=== PATIENT | male | born 1965 | race Caucasian/White ===

== ENCOUNTER → 2016-05-28 | Day surgery (SDC) | payer MEDICARE ==
[~2016-05-28] VITALS: Ht 182.9 cm; Wt 63.5 kg
[~2016-05-28] MED LIST: ACETAMINOPHEN/HYDROcodone 325 MG/5 MG TAB ONE; ACETAMINOPHEN/HYDROcodone 325 MG/5 MG TAB PO PRN; ALPR.25 PO; AMBI5TAB PO; Aspirin Chew PO; BACL10TA PO; BACT800T5 PO; BUPIVACAINE HCL PF 0.5% 30 ML VIAL ONE; CARV3.125 PO; CIPROFLOXACIN 500 MG TAB PO ONE; COLA100C3 PO; DOCU1CAP39 PO; DOXY100T PO; FAMOTIDINE 20 MG/2 ML VIAL ONE; HYDR-3583 PO; INSULIN HUMAN REGULAR 1,000 UNITS/10 ML VIAL SQ PRN; LACTATED RINGER'S 1000 ML IV SCH; LIDOCAINE 0.5%/EPINEPHrine 1:200,000 SOLN 50 ML VIAL ONE; LIDOCAINE 1%/EPINEPHrine 1:100,000 SOLN 20 ML VIAL ONE; LOVA40TA PO; METH1TAB2 PO; METOPROLOL TARTRATE 25 MG TAB PO PRN; MIDAZOLAM HCL 2 MG/2 ML VIAL ONE; POLY17S PO; PRAV40TA PO; PROPOFOL 200 MG/20 ML AMP IV ONE; SODIUM CHLORID 0.9% 500 ML IV SCH; VITA100018 PO; VITA10003 PO
[2016-05-28 13:20] VITALS: BP 123/78; PULSE 85; RESP 18; TEMP 98.6; O2SAT 98
[2016-05-28 13:33] LABS: AUTOMATED NEUTROPHIL # 6.6 TH/MM3 (1.8-7.7); BASOPHIL # 0.1 TH/MM3 (0-0.2); BASOPHIL % 0.6 % (0.0-2.0); EOSINOPHIL # 0.1 TH/MM3 (0-0.4); HEMATOCRIT 41.6 % (39.0-51.0); HEMO FLAGS DIFF FINAL; LYMPH % 15.2 % (9.0-44.0); LYMPHOCYTE # 1.3 TH/MM3 (1.0-4.8); MEAN CELL VOLUME 84.8 FL (80.0-100.0); MEAN CORPUSCULAR HEMOGLOBIN 28.9 PG (27.0-34.0); MEAN CORPUSCULAR HGB CONC 34.1 % (32.0-36.0); MONO % 5.3 % (0.0-8.0); NEUT % 77.9 % (16.0-70.0); PLATELET COUNT 369 TH/MM3 (150-450); RED BLOOD COUNT 4.91 MIL/MM3 (4.50-5.90); RED CELL DISTRIBUTION WIDTH 12.6 % (11.6-17.2); WHITE BLOOD COUNT 8.5 TH/MM3 (4.0-11.0)
--- NOTE | 2016-05-28 14:15 | EKG ---
Date Performed: 05/28/2016 Time Performed: 13:19:21 PTAGE: 51 years EKG: Sinus rhythm LEFT ATRIAL ENLARGEMENT PATTERN CONSISTENT WITH PULMONARY DISEASE INCOMPLETE RIGHT BUNDLE BRANCH BLO CK RIGHT VENTRICULAR HYPERTROPHY ABNORMAL ECG PREVIOUS TRACING : 07/12/2008 13.17 No significant change DOCTOR: Ramirez Hatfield Interpretating Date/Time 05/28/2016 14:13:23
[2016-05-28 17:00] VITALS: BP 124/81; PULSE 90; RESP 16; TEMP 97.9; O2SAT 96
--- NOTE | 2016-05-28 19:12 | MP ---
cc: DAIJA BOWEN M.D., JOHN T. M.D. DATE OF SURGERY: 05/28/2016 PREOPERATIVE DIAGNOSIS Internal and external hemorrhoids. POSTOPERATIVE DIAGNOSIS Internal and external hemorrhoids. PROCEDURE Internal and external hemorrhoidectomy. ANESTHESIA Monitored anesthesia care and local, 50 cc of 0.5% Xylocaine with epinephrine. SURGEON Dr. Crockett. OPERATIVE FINDINGS This patient underwent a hemorrhoidectomy by me approximately eight years ago. The patient is quadriplegic but gets a lot of spastic pain when his hemorrhoids are enlarged, they are bothering him again. Last time he was plagued with a lot of discomfort and bleeding, this time he is mainly plagued with what he describes as pain although he is quadriplegic. At surgery he was found to have large thickened primarily external hemorrhoids; however, the right posterior internal complex was quite large as well. A complete hemorrhoidectomy was done excising all the external and internal hemorrhoids. OPERATIVE TECHNIQUE The patient was placed on the table in the prone position after adequate monitored anesthesia care and the anal canal was injected 0.5% Xylocaine with epinephrine in the submucosal plane mainly externally and then in the submucosal hemorrhoidal plexus. The large Fansler operating anoscope was placed in the anal canal. My attention was first turned to the right posterior internal and external hemorrhoidal complex. An elliptical incision was made and then the hemorrhoid was excised from the muscles protecting the external and internal sphincter at all times. Next, the wound was closed from the apex outward using a running 2-0 chromic suture in a simple running manner. Hemostasis was maintained throughout with suture ligature. Next, my attention was turned to the large external posterior hemorrhoid which was excised elliptically and then closed transversely with a running 2-0 chromic suture in a simple running manner. I then replaced the Fansler retractor and the left posterior internal and external hemorrhoid was then elliptically incised and excised from the anal muscles, closing the wound from the apex outward using a running 2-0 chromic suture in a simple running manner. Once this was done, my attention was turned to left anterior external hemorrhoid which was fully excised, there was really no significant internal component to this. This wound was closed transversely with a single running 2-0 chromic suture in a simple running manner. Once this was done, the hemostasis was excellent. The sponge, needle and instrument counts were reported as correct. The estimated blood loss was 25 cc. The patient tolerated the procedure well and left the operating room in good condition. MD ORIN Morrissey/ANNE-MARIE /4:04 PM /6:41 PM
== END | disposition home or self-care (01) ==
LOC: HSDC 12:31
PROVIDERS: ATTEND Colon & Rectal Surgery
DX: K64.2 Third degree hemorrhoids (principal); K64.4 Residual hemorrhoidal skin tags; E78.5 Hyperlipidemia, unspecified; R94.31 Abnormal electrocardiogram [ECG] [EKG]
CPT/HCPCS: 00902; 46260; 85025; 88304; 93005; J2250; J3010; J7120

== ENCOUNTER 2016-06-02 16:05 | Inpatient (IN) | payer MEDICARE ==
[~2016-06-02 16:05] MED LIST changes: -ACETAMINOPHEN/HYDROcodone 325 MG/5 MG TAB ONE; -ACETAMINOPHEN/HYDROcodone 325 MG/5 MG TAB PO PRN; -ALPR.25 PO; -AMBI5TAB PO; -Aspirin Chew PO; -BACL10TA PO; -BACT800T5 PO; -BUPIVACAINE HCL PF 0.5% 30 ML VIAL ONE; -CARV3.125 PO; -CIPROFLOXACIN 500 MG TAB PO ONE; -DOCU1CAP39 PO; -DOXY100T PO; -FAMOTIDINE 20 MG/2 ML VIAL ONE; -INSULIN HUMAN REGULAR 1,000 UNITS/10 ML VIAL SQ PRN; -LACTATED RINGER'S 1000 ML IV SCH; -LIDOCAINE 0.5%/EPINEPHrine 1:200,000 SOLN 50 ML VIAL ONE; -LIDOCAINE 1%/EPINEPHrine 1:100,000 SOLN 20 ML VIAL ONE; -METOPROLOL TARTRATE 25 MG TAB PO PRN; -MIDAZOLAM HCL 2 MG/2 ML VIAL ONE; -POLY17S PO; -PRAV40TA PO; -PROPOFOL 200 MG/20 ML AMP IV ONE; -SODIUM CHLORID 0.9% 500 ML IV SCH; -VITA100018 PO
--- NOTE | 2016-06-02 17:19 | PD ---
HPI Chief Complaint: Headache Time Seen by Provider: 17:19 Travel History International Travel<30 days: No Contact w/Intl Traveler<30days: No History of Present Illness HPI 51-year-old male with a history of C-spine injury and quadriplegia is brought to the emergency department by EMS for evaluation of headache. The patient states that he had a hemorrhoidectomy performed by Dr. Crockett 5 days ago. States that he has had severe pain in his rectum since this surgery, states the pain radiates up his back. States he has not had a bowel movement until today when he used a suppository which allowed him to pass a small amount of stool. The patient states that he had a sudden onset terrible headache about an hour and a half ago that he describes as being sharp and behind the eyes bilaterally. States that the headache has improved since then but he is still having a mild headache. States that he has also been diaphoretic and had some chest congestion since the surgery. The patient is quadriplegic and has reduced sensation from the arms down. He denies any fever, chest pain, shortness of breath, difficulty breathing, abdominal pain, nausea, vomiting, lightheadedness, dizziness. No other complaints. PFSH Past Medical History Cancer: No Cardiovascular Problems: No Diabetes: No Endocrine: No Glaucoma: No Genitourinary: Yes (ONGOING RESENDEZ) Hepatitis: No Hiatal Hernia: No Hypertension: No Immune Disorder: No Musculoskeletal: Yes (SCOLIOSIS, RIGHT ROTATOR CUFF TEAR) Neurologic: Yes (QUADRIPLEGIC, PINCHED NERVE IN NECK) Psychiatric: Yes (ANXIETY AND DEPRESSION) Reproductive: Yes Respiratory: No Thyroid Disease: No Past Surgical History Abdominal Surgery: Yes ( LT INGUINAL HERNIA REPAIR) AICD: No Body Medical Devices: CERVICAL HARDWARE Cardiac Surgery: No Ear Surgery: No Endocrine Surgery: No Eye Surgery: No Genitourinary Surgery: No Gynecologic Surgery: No Joint Replacement: No Oral Surgery: Yes (T&A CHILDHOOD) Pacemaker: No Thoracic Surgery: Yes (BILATERAL CHEST TUBES FOR PNEUMOTHORAX) Social History Alcohol Use: Yes (SOCIALLY) Tobacco Use: No Substance Use: Yes (MARIJUANA) Allergies-Medications (Allergen,Severity, Reaction): Coded Allergies: Penicillin (Verified Allergy, Severe, RASH, 06/02/16) Reported Meds & Prescriptions Reported Meds & Active Scripts Active Reported Colace (Docusate Sodium) 100 Mg Cap 100 Mg PO TID Vitamin D-3 (Cholecalciferol) 1,000 Unit Tab 1,000 Units PO DAILY Hydrocodone-Acetaminophen 10-325 mg Tab 1 Tab PO Q6H PRN Methenamine Hippurate 1 Gm Tab 1 Gm PO BID Lovastatin 40 Mg Tab 40 Mg PO DAILY Review of Systems Except as stated in HPI: all other systems reviewed are Neg Physical Exam Narrative GENERAL: Well-nourished and well-developed male patient in moderate pain. SKIN: Diaphoretic, warm. HEAD: Normocephalic and atraumatic. EYES: No injection, drainage, or hyphema noted. PERRLA. EOMI. ENT: No nasal drainage noted. Oropharynx is clear. NECK: Supple and the trachea is midline. CARDIOVASCULAR: Regular rate and rhythm. RESPIRATORY: Breath sounds are equal bilaterally with no accessory muscle use, wheezing, rhonchi, or crackles. GASTROINTESTINAL: Abdomen is soft, non-tender, and nondistended. RECTAL EXAM: Mild irritation of the external rectum. No masses or tenderness, stool is brown. MUSCULOSKELETAL: No obvious deformities, swelling, cyanosis, or ecchymosis is present throughout the upper and lower extremities. NEUROLOGICAL: Awake, alert, and oriented. Normal speech and gait. Cranial nerves are grossly intact. Data Data Last Documented VS Vital Signs Date Time Temp Pulse Resp B/P Pulse Ox O2 Delivery O2 Flow Rate FiO2 06/02/16 19:53 99.1 83 20 137/92 99 Room Air Orders Electrocardiogram (06/02/16 17:16) Complete Blood Count With Diff (06/02/16 17:16) Comprehensive Metabolic Panel (06/02/16 17:16) Lactic Acid Sepsis Protocol (06/02/16 17:16) Urinalysis - C+S If Indicated (06/02/16 17:16) Blood Culture (06/02/16 17:16) Chest, Single Ap (06/02/16 17:16) Ecg Monitoring (06/02/16 17:16) Iv Access Insert/Monitor (06/02/16 17:16) Oximetry (06/02/16 17:16) Oxygen Administration (06/02/16 17:16) Hydromorphone Pf Inj (Dilaudid Pf Inj) (06/02/16 17:30) Ct Brain W/O Iv Contrast(Rout) (06/02/16 17:19) Ct Abd/Pel W Iv Contrast(Rout) (06/02/16 18:18) Sodium Chlor 0.9% 1000 Ml Inj (Ns 1000 M (06/02/16 19:52) Sodium Chlor 0.9% 1000 Ml Inj (Ns 1000 M (06/02/16 19:52) Vancomycin Inj (Vancomycin Inj) (06/02/16 20:00) Aztreonam Inj (Azactam Inj) (06/02/16 19:52) Labs Laboratory Tests Test 06/02/16 20:29 White Blood Count 14.1 TH/MM3 Red Blood Count 5.28 MIL/MM3 Hemoglobin 14.8 GM/DL Hematocrit 44.7 % Mean Corpuscular Volume 84.6 FL Mean Corpuscular Hemoglobin 28.1 PG Mean Corpuscular Hemoglobin 33.2 % Concent Red Cell Distribution Width 13.0 % Platelet Count 353 TH/MM3 Mean Platelet Volume 7.5 FL Neutrophils (%) (Auto) 87.6 % Lymphocytes (%) (Auto) 5.9 % Monocytes (%) (Auto) 6.4 % Eosinophils (%) (Auto) 0.0 % Basophils (%) (Auto) 0.1 % Neutrophils # (Auto) 12.3 TH/MM3 Lymphocytes # (Auto) 0.8 TH/MM3 Monocytes # (Auto) 0.9 TH/MM3 Eosinophils # (Auto) 0.0 TH/MM3 Basophils # (Auto) 0.0 TH/MM3 CBC Comment DIFF FINAL Differential Comment MDM Medical Decision Making Medical Screen Exam Complete: Yes Emergency Medical Condition: Yes Differential Diagnosis Post-op pain versus cephalgia versus migraine versus pneumonia versus other Narrative Course 51-year-old male presents to the emergency department for evaluation of headache and rectal pain. Patient is afebrile, vital signs are stable. IV access is obtained, labs have been drawn and sent. EKG shows sinus rhythm with incomplete right bundle branch block, no acute ST elevations or depressions. Head CT is negative for any acute abnormalities. Chest x-ray shows multiple subacute rib fractures on left fourth through seventh ribs, no acute abnormalities or infiltrates. Patient has been given IV fluids, vancomycin and Azactam. Patient is signed out to Dr. Nicolas at my end of shift pending the results of laboratory testing and CT imaging. Physician Communication Physician Communication I spoke with Dr. Stoddard, partner of Dr. Crockett, he advises patient follow-up with Dr. Crockett and did not have any further recommendations. Bonnie Salter Jun 02, 2016 17:19
[2016-06-02 17:28] VITALS: BP 127/68; PULSE 90; RESP 18; TEMP 98.1; O2SAT 97
[2016-06-02] MEDS ORDERED: HYDROmorphone HCL PF 1 MG/ML VIAL IV ONE (17:30)
--- NOTE | 2016-06-02 17:52 | RADRPT ---
EXAM DATE/TIME: 06/02/2016 17:42 [facility] COMPARISON: No previous studies available for comparison. INDICATIONS : Headaches. RADIATION DOSE: 48.25 CTDIvol (mGy) MEDICAL HISTORY : None SURGICAL HISTORY : None. ENCOUNTER: Initial ACUITY: 1 day PAIN SCALE: 10/10 LOCATION: Bilateral cranial TECHNIQUE: Multiple contiguous axial images were obtained of the head. Using automated exposure control and adj ustment of the mA and/or kV according to patient size, radiation dose was kept as low as reasonably a chievable to obtain optimal diagnostic quality images. FINDINGS: CEREBRUM: The ventricles are normal for age. No evidence of midline shift, mass lesion, hemorrhage or acute in farction. No extra-axial fluid collections are seen. POSTERIOR FOSSA: The cerebellum and brainstem are intact. The 4th ventricle is midline. The cerebellopontine angle i s unremarkable. EXTRACRANIAL: The visualized portion of the orbits is intact. SKULL: The calvaria is intact. No evidence of skull fracture. CONCLUSION: No acute disease. Osei Baker MD on June 02, 2016 at 17:50 Board Certified Radiologist. This report was verified electronically.
--- NOTE | 2016-06-02 18:44 | RADRPT ---
EXAM DATE/TIME: 06/02/2016 17:26 [facility] COMPARISON: No previous studies available for comparison. INDICATIONS : Cough for several days. MEDICAL HISTORY : Paraplegic. SURGICAL HISTORY : Unobtainable. ENCOUNTER: Initial ACUITY: 2 days PAIN SCORE: 2/10 LOCATION: Bilateral chest FINDINGS: A single view of the chest demonstrates the lungs to be symmetrically aerated without evidence of mas s, infiltrate or effusion. The cardiomediastinal contours are unremarkable. Scoliotic and degenerati ve changes of the lumbar spine. There are multiple left-sided subacute rib fractures which demonstrat e some periosteal reaction mainly involving the left fourth through seventh ribs. There are some old right-sided rib fractures.. CONCLUSION: 1. Multiple subacute left-sided rib fractures. 2. No infiltrate seen. 3. No pneumothorax. Triston Singh MD on June 02, 2016 at 18:40 Board Certified Radiologist. This report was verified electronically.
[2016-06-02] MEDS ORDERED: SODIUM CHLOR 0.9% 1000 ML INJ 1,000 ML IV SCH ×2 (19:52)
[2016-06-02] MEDS ORDERED: AZTREONAM INJ 2,000 MG in SODIUM CHLORIDE 0.9% INJ 100 ML IV STA (19:52)
[2016-06-02 19:53] VITALS: BP 137/92; PULSE 83; RESP 20; TEMP 99.1; O2SAT 99
[2016-06-02] MEDS ORDERED: VANCOMYCIN INJ 1,000 MG in SODIUM CHLOR 0.9% 250 ML INJ 250 ML IV ONE (20:00)
[2016-06-02 20:43] LABS: AUTOMATED NEUTROPHIL # 12.3 TH/MM3 (1.8-7.7); BASOPHIL % 0.1 % (0.0-2.0); HEMATOCRIT 44.7 % (39.0-51.0); HEMO FLAGS DIFF FINAL; LYMPH % 5.9 % (9.0-44.0); LYMPHOCYTE # 0.8 TH/MM3 (1.0-4.8); MEAN CELL VOLUME 84.6 FL (80.0-100.0); MEAN CORPUSCULAR HEMOGLOBIN 28.1 PG (27.0-34.0); MEAN CORPUSCULAR HGB CONC 33.2 % (32.0-36.0); MONO % 6.4 % (0.0-8.0); NEUT % 87.6 % (16.0-70.0); PLATELET COUNT 353 TH/MM3 (150-450); RED BLOOD COUNT 5.28 MIL/MM3 (4.50-5.90); WHITE BLOOD COUNT 14.1 TH/MM3 (4.0-11.0)
[2016-06-02 21:02] LABS: ALT (GPT) 21 U/L (12-78); ANION GAP 12 MEQ/L (5-15); AST (GOT) 20 U/L (15-37); BICARBONATE 27.2 MEQ/L (21.0-32.0); BLOOD UREA NITROGEN 12 MG/DL (7-18); CHLORIDE 101 MEQ/L (98-107); GLOMERULAR FILTRATION RATE 131 ML/MIN (>89); SODIUM (NA) 140 MEQ/L (136-145)
[2016-06-02 21:05] LABS: ALKALINE PHOSPHATASE 181 U/L (45-117); TOTAL BILIRUBIN ADULT 0.7 MG/DL (0.2-1.0)
[2016-06-02 21:33] VITALS: BP 94/68; PULSE 122; RESP 24; O2SAT 95
[2016-06-02] MEDS ORDERED: DICYCLOMINE HCL 20 MG/2 ML VIAL IM ONE (21:45)
[2016-06-02] MEDS ORDERED: HYDROmorphone HCL PF 1 MG/ML VIAL IV PUSH ONE ×2 (21:45→23:45)
[2016-06-02] MEDS ORDERED: IOHEXOL 350 MG/ML 10 ML VIAL (for RAD DIAG) IV ONE (22:03)
--- NOTE | 2016-06-02 22:15 | RADRPT ---
EXAM DATE/TIME: 06/02/2016 21:56 [facility] COMPARISON: No previous studies available for comparison. INDICATIONS : Rectal pain radiating up the back, following a hemorrhoidectomy performed five days ago. IV CONTRAST: 97 cc Omnipaque 300 (iohexol) IV ORAL CONTRAST: No oral contrast ingested. RADIATION DOSE: 5.39 CTDIvol (mGy) MEDICAL HISTORY : Paraplegic. Scoliosis. SURGICAL HISTORY : Inguinal hernia repair. ENCOUNTER: Initial ACUITY: 4 - 6 days PAIN SCALE: 8/10 LOCATION: Lower back. TECHNIQUE: Volumetric scanning of the abdomen and pelvis was performed. Using automated exposure control and ad justment of the mA and/or kV according to patient size, radiation dose was kept as low as reasonably achievable to obtain optimal diagnostic quality images. FINDINGS: LOWER LUNGS: The visualized lower lungs are clear. LIVER: Homogeneous density without lesion. There is no dilation of the biliary tree. No calcified gallston es. 1 cm hepatic low density. SPLEEN: Normal size without lesion. PANCREAS: Within normal limits. KIDNEYS: Normal in size and shape. There is no mass, stone or hydronephrosis. ADRENAL GLANDS: Within normal limits. VASCULAR: There is no aortic aneurysm. BOWEL/MESENTERY: Copious amount of stool in the rectum. Postsurgical changes in the perirectal region from previous willams rgery. The stomach, small bowel, and colon demonstrate no acute abnormality. There is no free intrap eritoneal air or fluid. ABDOMINAL WALL: Within normal limits. RETROPERITONEUM: There is no lymphadenopathy. BLADDER: Aguirre catheter noted. No wall thickening or mass. REPRODUCTIVE: Within normal limits. INGUINAL: There is no lymphadenopathy or hernia. MUSCULOSKELETAL: Scoliosis with degenerative changes. CONCLUSION: 1. Post surgical changes in the perirectal region. No abnormal fluid collection or abscess. 2. Copious amount of stool the rectum. 3. Hepatic low density, likely benign. Triston Singh MD on June 02, 2016 at 22:10 Board Certified Radiologist. This report was verified electronically.
[2016-06-02 22:23] VITALS: BP 102/55; PULSE 111; RESP 20; O2SAT 97
[2016-06-02 23:20] LABS: BACTERIA, URINE FEW /hpf; BLOOD, URINE SMALL (NEG); COMMENT (UR) CATH-CULTURE IND; CULTURE IF INDICATED CATH CULTURE IND; GLUCOSE,URINE NEG (NEG); HYALINE CAST, URINE 17 /lpf (RARE); KETONE, URINE 80 mg/dL (NEG); MUCUS URINE MANY /lpf (OCC); PH, URINE 5.5 (5.0-8.5); SQUAMOUS EPITHELIAL CELL URINE 5 /hpf (0-5); URINE COLOR YELLOW (YELLW/STRAW)
[2016-06-02 23:21] LABS: NITRITE,URINE POS (NEG)
--- NOTE | 2016-06-02 23:33 | PD ---
Data Data Last Documented VS Vital Signs Date Time Temp Pulse Resp B/P Pulse Ox O2 Delivery O2 Flow Rate FiO2 06/02/16 22:23 111 20 102/55 97 Room Air 06/02/16 19:53 99.1 Orders Electrocardiogram (06/02/16 17:16) Complete Blood Count With Diff (06/02/16 17:16) Comprehensive Metabolic Panel (06/02/16 17:16) Lactic Acid Sepsis Protocol (06/02/16 17:16) Urinalysis - C+S If Indicated (06/02/16 17:16) Blood Culture (06/02/16 17:16) Chest, Single Ap (06/02/16 17:16) Ecg Monitoring (06/02/16 17:16) Iv Access Insert/Monitor (06/02/16 17:16) Oximetry (06/02/16 17:16) Oxygen Administration (06/02/16 17:16) Hydromorphone Pf Inj (Dilaudid Pf Inj) (06/02/16 17:30) Ct Brain W/O Iv Contrast(Rout) (06/02/16 17:19) Ct Abd/Pel W Iv Contrast(Rout) (06/02/16 18:18) Sodium Chlor 0.9% 1000 Ml Inj (Ns 1000 M (06/02/16 19:52) Sodium Chlor 0.9% 1000 Ml Inj (Ns 1000 M (06/02/16 19:52) Vancomycin Inj (Vancomycin Inj) (06/02/16 20:00) Aztreonam Inj (Azactam Inj) (06/02/16 19:52) Hydromorphone Pf Inj (Dilaudid Pf Inj) (06/02/16 21:45) Dicyclomine Inj (Bentyl Inj) (06/02/16 21:45) Iohexol 350 Inj (Omnipaque 350 Inj) (06/02/16 22:03) Urine Culture (06/02/16 22:25) Replace Aguirre (06/02/16 23:33) Hydromorphone Pf Inj (Dilaudid Pf Inj) (06/02/16 23:45) Admit Order (Ed Use Only) (06/02/16 ) Labs Laboratory Tests Test 06/02/16 06/02/16 06/02/16 20:29 20:50 22:25 White Blood Count 14.1 TH/MM3 Red Blood Count 5.28 MIL/MM3 Hemoglobin 14.8 GM/DL Hematocrit 44.7 % Mean Corpuscular Volume 84.6 FL Mean Corpuscular Hemoglobin 28.1 PG Mean Corpuscular Hemoglobin 33.2 % Concent Red Cell Distribution Width 13.0 % Platelet Count 353 TH/MM3 Mean Platelet Volume 7.5 FL Neutrophils (%) (Auto) 87.6 % Lymphocytes (%) (Auto) 5.9 % Monocytes (%) (Auto) 6.4 % Eosinophils (%) (Auto) 0.0 % Basophils (%) (Auto) 0.1 % Neutrophils # (Auto) 12.3 TH/MM3 Lymphocytes # (Auto) 0.8 TH/MM3 Monocytes # (Auto) 0.9 TH/MM3 Eosinophils # (Auto) 0.0 TH/MM3 Basophils # (Auto) 0.0 TH/MM3 CBC Comment DIFF FINAL Differential Comment Sodium Level 140 MEQ/L Potassium Level 4.0 MEQ/L Chloride Level 101 MEQ/L Carbon Dioxide Level 27.2 MEQ/L Anion Gap 12 MEQ/L Blood Urea Nitrogen 12 MG/DL Creatinine 0.64 MG/DL Estimat Glomerular Filtration 131 ML/MIN Rate Random Glucose 100 MG/DL Calcium Level 9.5 MG/DL Total Bilirubin 0.7 MG/DL Aspartate Amino Transf 20 U/L (AST/SGOT) Alanine Aminotransferase 21 U/L (ALT/SGPT) Alkaline Phosphatase 181 U/L Total Protein 7.8 GM/DL Albumin 3.8 GM/DL Lactic Acid Level 1.3 mmol/L Urine Color YELLOW Urine Turbidity CLOUDY Urine pH 5.5 Urine Specific Peculiar 1.050 Urine Protein 100 mg/dL Urine Glucose (UA) NEG mg/dL Urine Ketones 80 mg/dL Urine Occult Blood SMALL Urine Nitrite POS Urine Bilirubin NEG Urine Urobilinogen LESS THAN 2.0 MG/DL Urine Leukocyte Esterase LARGE Urine RBC 78 /hpf Urine WBC /hpf Urine WBC Clumps MOD Urine Squamous Epithelial 5 /hpf Cells Urine Bacteria FEW /hpf Urine Hyaline Casts 17 /lpf Urine Mucus MANY /lpf Urine Yeast (Budding) OCC Microscopic Urinalysis Comment CATH-CULTURE IND MDM Supervised Visit with JASON: Yes Narrative Course Patient 51-year-old male assumed care for this patient from Dr. Hyde at 1900. Workup is continuing by Sandra Salter PA C. Briefly this is a patient who has a history of quadriplegia has urinary catheter in at baseline. 6 days ago had a hemorrhoidectomy and has been having some abdominal cramping pain. He is having tachycardic episodes the 140s monitor suggestive of 6 sinus syndrome. EKG negative, troponin negative CT abdomen negative. He was rectalized by Dr. Faulkner and partially disimpacted. Patient does have elevated white blood cell count from a few days ago with left shift. Lactic acid negative. He was started on vancomycin as act him given a history of penicillin allergy. Urinalysis nitrate positive and quite cloudy and Aguirre catheter which has been present for 4 weeks. Catheter will be exchanged here in the emergency department. Patient is feeling better after multiple doses of Dilaudid as well as Bentyl. We'll be admitted under Dr. Pabon. Report was given Dr. Pabon. Diagnosis Primary Impression: Sepsis secondary to UTI Disposition: 01 DISCHARGE HOME Condition: Stable Osei Nicolas MD Jun 02, 2016 23:32
[2016-06-02 23:54] VITALS: BP 99/68; PULSE 98; RESP 18; O2SAT 95
[2016-06-03] MEDS ORDERED: NALOXONE HCL 0.4 MG/ML AMP IV PRN
[2016-06-03] MEDS ORDERED: ACETAMINOPHEN 325 MG TAB PO PRN
[2016-06-03] MEDS: LACTATED RINGER'S 1000 ML INJ 1,000 ML IV SCH ×3 (00:49→21:28)
[2016-06-03 02:15] VITALS: BP 120/84; PULSE 100; RESP 16; O2SAT 96
[2016-06-03] MEDS ORDERED: DICYCLOMINE HCL 20 MG/2 ML VIAL IM STA (02:31)
[2016-06-03] MEDS: ONDANSETRON HCL 4 MG/2 ML VIAL IVP PRN (03:58)
[2016-06-03] MEDS: HYDROmorphone HCL PF 1 MG/ML VIAL IV PUSH PRN ×4 (03:58→23:17)
[2016-06-03] MEDS: BACLOFEN 10 MG TAB PO SCH ×4 (03:58→16:54)
[2016-06-03 05:53] LABS: AUTOMATED NEUTROPHIL # 8.7 TH/MM3 (1.8-7.7); BASOPHIL % 0.3 % (0.0-2.0); EOSINOPHIL % 0.2 % (0.0-4.0); HEMATOCRIT 36.6 % (39.0-51.0); HEMO FLAGS DIFF FINAL; LYMPH % 12.8 % (9.0-44.0); LYMPHOCYTE # 1.4 TH/MM3 (1.0-4.8); MEAN CELL VOLUME 84.9 FL (80.0-100.0); MEAN CORPUSCULAR HEMOGLOBIN 28.6 PG (27.0-34.0); MEAN CORPUSCULAR HGB CONC 33.7 % (32.0-36.0); MONO % 9.5 % (0.0-8.0); NEUT % 77.2 % (16.0-70.0); PLATELET COUNT 307 TH/MM3 (150-450); RED BLOOD COUNT 4.31 MIL/MM3 (4.50-5.90); RED CELL DISTRIBUTION WIDTH 12.9 % (11.6-17.2); WHITE BLOOD COUNT 11.2 TH/MM3 (4.0-11.0)
[2016-06-03 06:15] VITALS: BP 96/59; PULSE 95; RESP 20; O2SAT 98
[2016-06-03 06:16] LABS: BICARBONATE 25.3 MEQ/L (21.0-32.0); POTASSIUM 3.4 MEQ/L (3.5-5.1)
[2016-06-03] MEDS: ENOXAPARIN SODIUM 40 MG/0.4 ML SYRINGE SQ SCH (06:24)
[2016-06-03 08:00] VITALS: BP 88/54; PULSE 99; RESP 20; TEMP 98.7; O2SAT 97
[2016-06-03] MEDS: AZTREONAM INJ 1,000 MG in SODIUM CHLORIDE 0.9% INJ 100 ML IV SCH ×3 (08:17→23:17)
[2016-06-03] MEDS ORDERED: METHENAMINE HIPPURATE 1 GM PO SCH (09:00)
[2016-06-03] MEDS: SODIUM CHLORIDE 0.9% FLUSH 5 ML FLUSH FLUSH SCH ×2 (09:55→21:28)
[2016-06-03] MEDS: DOCUSATE SODIUM 100 MG CAP PO SCH ×2 (09:55→21:27)
[2016-06-03] MEDS: PRAVASTATIN SOD 40 MG TAB PO SCH (09:55)
[2016-06-03] MEDS: CHOLECALCIFEROL (VIT D3) 1000 UNIT TAB PO SCH (09:55)
--- NOTE | 2016-06-03 11:06 | EKG ---
Date Performed: 06/02/2016 Time Performed: 19:53:49 PTAGE: 51 years EKG: Sinus rhythm INCOMPLETE RIGHT BUNDLE BRANCH BLOCK POSSIBLE RIGHT VENTRICULAR HYPERTROPHY SEPTAL MYOCARDIAL INFARC TION RIGHT AXIS DEVIATION Since previous tracing, no significant change noted ABNORMAL ECG PREVIOUS TRACING : 05/28/2016 13.19 DOCTOR: Gatito Diop Interpretating Date/Time 06/03/2016 11:05:17
[2016-06-03 11:58] VITALS: BP 117/61; PULSE 104; PULSE 93; RESP 20; O2SAT 98
[2016-06-03] MEDS ORDERED: POTASSIUM CHLORIDE 20 MEQ CONTROLLED RELEASE TAB PO ONE (12:00)
[2016-06-03] MEDS ORDERED: MAGNESIUM CITRATE SOLN 300 ML BTL PO ONE (12:00)
[2016-06-03] MEDS ORDERED: DICYCLOMINE HCL 20 MG/2 ML VIAL IM ONE (14:30)
[2016-06-03] MEDS ORDERED: SOD PHOSPHATE/SOD BIPHOSPHATE (ADULT) ENEMA 133ML PR ONE (15:00)
[2016-06-03 15:52] VITALS: BP 129/59; PULSE 95; RESP 16; O2SAT 98
--- NOTE | 2016-06-03 16:38 | MB ---
cc: QUINN BRUNO DATE OF CONSULTATION 06/03/16 CHIEF COMPLAINT Headache, urinary tract infection, impaction HISTORY OF PRESENT ILLNESS This patient is known to me. Six days ago, he underwent a hemorrhoidectomy by me. He is quadriplegic. I did a hemorrhoidectomy on him about 10 years ago. He is complaining of pain from these, even though he does not feel typical somatic pain. Postoperatively, he talked to my partner, Dr. Stoddard, over the weekend, again Dr. Rosas early in the week and the Emergency room talked Dr. Stoddard yesterday when the patient showed up at the emergency room with a headache. The patient says that he has terrible rectal pain and Dr. Stoddard told him to stop his suppositories. We offered to have him come into the office on Tuesday and Tuesday and his mother said that he could not be brought into the office. He came to the emergency department and was evaluated and basically had a normal exam other than a urinary tract infection and headache which has now passed. He did have a CT scan of the abdomen that showed a large amount of stool in the rectum, which is not unusual on quadriplegia. I discussed his care with Dr. Pabon today and told him to give him a 10 ounce bottle of magnesium citrate. We can still use his suppositories and we can use enemas and it will not injure our repair at all. The patient's mother tells me that he has new rib fractures and she says that she is unsure how he got those, that he did not fall and he certainly did not fall when he was at the hospital. PHYSICAL EXAMINATION Rectum only shows nicely healing wounds. Digital exam shows a hypertonic sphincter and a large amount of soft stool on the rectum. No hard fecal impaction. PLAN I am going to give him the bottle magnesium citrate which he has not received yet and write for enemas as needed and also his suppositories as he wishes to take them. He says that he is unable to get out of bed now and sit on the commode so he just wants to have the laxatives and lay in bed and have the bowel motions. I will continue to follow along since he is freshly postop. MD ORIN Morrissey/ /1:26 PM /4:31 PM
[2016-06-03 20:00] VITALS: BP 104/54; PULSE 92; RESP 18; TEMP 98.7; O2SAT 95
--- NOTE | 2016-06-03 20:00 | HHI.HP ---
History of Present Illness Service INTERNAL MEDICINE Primary Care Physician MARK PABON MD Admission Diagnosis EARLY SEPSIS. URINARY TRACT INFECTION. Diagnoses: History of Present Illness This patient is a 51 year old male who is status post hemorrhoidectomy about six days ago. He states that he acutely started to have some feeling of chills and being somewhat shaky two days prior to admission. He also noticed changes for difficulty to pass his urine. He also had some difficulty for the passage of his stool. He subsequently deteriorated to a severely weakened state. He was transported to the [facility] Emergency Room. He is found with a presentation of sepsis with urinary tract infection. He is now admitted to the hospital as an Inpatient to further assess and treat. Review of Systems Constitutional: COMPLAINS OF: Diaphoretic episodes, Fever, Weight loss, Chills Gastrointestinal: COMPLAINS OF: Abdominal pain, Constipation, Vomiting Past Family Social History Allergies: Coded Allergies: Penicillin (Verified Allergy, Severe, RASH, 06/02/16) Past Medical History 1. Cervical Syndrome. 2. Low Back Syndrome. 3. Quadriplegia. 4. Neurogenic Bladder. 5. Scoliosis of the Spine. 6. Chronic Pain Syndrome. 7. Hyperlipidemia. Past Surgical History 1. Tendon Transfer of the Right Upper Extremity-1982. 2. C-Spine Laminectomy for C5, C6 and C7-1981. 3. Spinal Cord Cyst Removal. 4. Tonsillectomy and Adenoidectomy as a child-1969. Family History Father is at age 61. His health status is unknown. Mother is alive at age 72. She has a history of hypertension, Osteoarthritis and Glaucoma. Sister is alive at age 37 and in good health. Social History He is single. 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 He does not smoke tobacco. Alcohol intake is on at special social occasions. He does use marijuana on occasion. Physical Exam Vital Signs Vital Signs Date Time Temp Pulse Resp B/P Pulse Ox O2 Delivery O2 Flow Rate FiO2 06/03/16 18:10 20 06/03/16 16:02 96 06/03/16 15:52 95 16 129/59 98 06/03/16 11:58 93 20 117/61 98 Room Air 06/03/16 08:00 98.7 99 20 88/54 97 Room Air 06/03/16 06:15 95 20 96/59 98 Room Air 06/03/16 02:15 100 16 120/84 96 Room Air 06/02/16 23:54 98 18 99/68 95 Room Air 06/02/16 22:23 111 20 102/55 97 Room Air 06/02/16 21:33 122 24 94/68 95 Room Air 06/02/16 19:53 99.1 83 20 137/92 99 Room Air Physical Exam GENERAL: This is a mildly malnourished appearing patient who is in severe distress for pain in the abdomen. SKIN: No rashes, ecchymoses or lesions. Cool and dry. HEAD: Atraumatic. Normocephalic. No temporal or scalp tenderness. EYES: Pupils equal round and reactive. Extraocular motions intact. No scleral icterus. No injection or drainage. ENT: Nose is with clear passages. Throat without erythema, tonsillar hypertrophy or exudate. Uvula midline. Airway patent. NECK: Trachea midline. No JVD or lymphadenopathy. Supple, nontender, no meningeal signs. CARDIOVASCULAR: Regular rate and rhythm without murmurs, gallops, or rubs. RESPIRATORY: Clear to auscultation. Breath sounds equal bilaterally. No wheezes , rales, or rhonchi. GASTROINTESTINAL: Abdomen soft, moderate tenderness to palpation. No hepato- splenomegaly, or palpable masses. No guarding. MUSCULOSKELETAL: Extremities without clubbing, cyanosis, or edema. No joint tenderness, effusion, or edema noted. No calf tenderness. Negative Homans sign bilaterally. There is marked scoliosis of the spine. NEUROLOGICAL: Awake and alert. Motor deficits are for paraplegic lower limbs and paraparesis for the upper limbs. Normal speech. Laboratory Laboratory Tests Test 06/02/16 06/02/16 06/02/16 06/03/16 20:29 20:50 22:25 04:43 White Blood Count 14.1 11.2 Red Blood Count 5.28 4.31 Hemoglobin 14.8 12.4 Hematocrit 44.7 36.6 Mean Corpuscular Volume 84.6 84.9 Mean Corpuscular Hemoglobin 28.1 28.6 Mean Corpuscular Hemoglobin 33.2 33.7 Concent Red Cell Distribution Width 13.0 12.9 Platelet Count 353 307 Mean Platelet Volume 7.5 7.5 Neutrophils (%) (Auto) 87.6 77.2 Lymphocytes (%) (Auto) 5.9 12.8 Monocytes (%) (Auto) 6.4 9.5 Eosinophils (%) (Auto) 0.0 0.2 Basophils (%) (Auto) 0.1 0.3 Neutrophils # (Auto) 12.3 8.7 Lymphocytes # (Auto) 0.8 1.4 Monocytes # (Auto) 0.9 1.1 Eosinophils # (Auto) 0.0 0.0 Basophils # (Auto) 0.0 0.0 CBC Comment DIFF FINAL DIFF FINAL Differential Comment Sodium Level 140 141 Potassium Level 4.0 3.4 Chloride Level 101 107 Carbon Dioxide Level 27.2 25.3 Anion Gap 12 9 Blood Urea Nitrogen 12 10 Creatinine 0.64 0.54 Estimat Glomerular Filtration 131 159 Rate Random Glucose 100 99 Calcium Level 9.5 8.6 Total Bilirubin 0.7 Aspartate Amino Transf 20 (AST/SGOT) Alanine Aminotransferase 21 (ALT/SGPT) Alkaline Phosphatase 181 Total Protein 7.8 Albumin 3.8 Lactic Acid Level 1.3 Urine Color YELLOW Urine Turbidity CLOUDY Urine pH 5.5 Urine Specific [place] 1.050 Urine Protein 100 Urine Glucose (UA) NEG Urine Ketones 80 Urine Occult Blood SMALL Urine Nitrite POS Urine Bilirubin NEG Urine Urobilinogen LESS THAN 2.0 Urine Leukocyte Esterase LARGE Urine RBC 78 Urine WBC Urine WBC Clumps MOD Urine Squamous Epithelial 5 Cells Urine Bacteria FEW Urine Hyaline Casts 17 Urine Mucus MANY Urine Yeast (Budding) OCC Microscopic Urinalysis Comment CATH-CULTURE IND Magnesium Level 2.3 Date/Time Procedure Status Source Growth 06/02/16 22:25 Urine Culture - Preliminary Resulted Urine Catheterized Urine IMMATURE GROWTH - REINCUBATE 06/02/16 20:50 Aerobic Blood Culture - Preliminary Resulted Blood Peripheral NO GROWTH IN 1 DAY 06/02/16 20:50 Anaerobic Blood Culture - Preliminary Resulted Blood Peripheral NO GROWTH IN 1 DAY Result Diagram: 06/03/16 0443 06/03/16 0443 Assessment and Plan Assessment and Plan ASSESSMENT 1. Early Sepsis. 2. Urinary Tract Infection. 3. Hypokalemia. 4. Severe Constipation with Fecal Impaction. 5. Recent Hemorrhoidectomy. 6. Quadriplegia. 7. Severe Scoliosis of the Spine. PLAN 1. Admit to the hospital as an Inpatient. 2 Blood Cultures and Urine Culture. 3. Intravenous hydration and electrolyte repletion. 4. Intravenous antibiotics. 5. Intravenous analgesic support. 6. Consultation to Colon-Rectal Surgery. 7. Use of cathartic agents as needed. 8. Follow up laboratory assessment. 9. DVT and PE prophylaxis. Mark Pabon MD Jun 03, 2016 20:00
[2016-06-03] MEDS: DICYCLOMINE HCL 10 MG CAP PO SCH (21:27)
[2016-06-03] MEDS: MEGESTROL ACETATE SUSP 400 MG/10 ML CUP PO SCH (21:27)
[2016-06-03] MEDS: PANTOPRAZOLE SOD 40 MG DELAYED RELEASE TAB PO SCH (21:27)
[2016-06-03] MEDS: VANCOMYCIN INJ 1,000 MG in SODIUM CHLOR 0.9% 250 ML INJ 250 ML IV SCH (21:27)
[2016-06-04] VITALS: BP 130/82; PULSE 94; RESP 16; TEMP 99.5; O2SAT 96
[2016-06-04] MEDS: HYDROmorphone HCL PF 1 MG/ML VIAL IV PUSH PRN ×5 (03:03→22:42)
[2016-06-04] MEDS: LACTATED RINGER'S 1000 ML INJ 1,000 ML IV SCH ×2 (03:03→18:41)
[2016-06-04] MEDS: ENOXAPARIN SODIUM 40 MG/0.4 ML SYRINGE SQ SCH (05:21)
[2016-06-04 07:16] LABS: BASOPHIL # 0.1 TH/MM3 (0-0.2); BASOPHIL % 0.5 % (0.0-2.0); EOSINOPHIL # 0.1 TH/MM3 (0-0.4); EOSINOPHIL % 1.4 % (0.0-4.0); HEMATOCRIT 34.6 % (39.0-51.0); HEMO FLAGS DIFF FINAL; LYMPH % 16.1 % (9.0-44.0); LYMPHOCYTE # 1.5 TH/MM3 (1.0-4.8); MEAN CELL VOLUME 85.2 FL (80.0-100.0); MEAN CORPUSCULAR HEMOGLOBIN 29.6 PG (27.0-34.0); MEAN CORPUSCULAR HGB CONC 34.8 % (32.0-36.0); MONO % 8.5 % (0.0-8.0); NEUT % 73.5 % (16.0-70.0); PLATELET COUNT 254 TH/MM3 (150-450); RED BLOOD COUNT 4.06 MIL/MM3 (4.50-5.90); WHITE BLOOD COUNT 9.5 TH/MM3 (4.0-11.0)
[2016-06-04 07:27] LABS: BICARBONATE 27.7 MEQ/L (21.0-32.0); POTASSIUM 3.6 MEQ/L (3.5-5.1)
[2016-06-04 08:00] VITALS: BP 121/71; PULSE 88; RESP 18; TEMP 98.5; O2SAT 95
[2016-06-04] MEDS: ONDANSETRON HCL 4 MG/2 ML VIAL IVP PRN (08:13)
[2016-06-04] MEDS: BACLOFEN 10 MG TAB PO SCH ×3 (09:00→18:33)
[2016-06-04] MEDS: MEGESTROL ACETATE SUSP 400 MG/10 ML CUP PO SCH ×2 (09:00→20:50)
[2016-06-04] MEDS: DOCUSATE SODIUM 100 MG CAP PO SCH ×2 (09:46→20:49)
[2016-06-04] MEDS: PANTOPRAZOLE SOD 40 MG DELAYED RELEASE TAB PO SCH ×2 (09:46→20:49)
[2016-06-04] MEDS: PRAVASTATIN SOD 40 MG TAB PO SCH (09:47)
[2016-06-04] MEDS: DICYCLOMINE HCL 10 MG CAP PO SCH ×4 (09:47→20:49)
[2016-06-04] MEDS: CHOLECALCIFEROL (VIT D3) 1000 UNIT TAB PO SCH (09:47)
[2016-06-04] MEDS: AZTREONAM INJ 1,000 MG in SODIUM CHLORIDE 0.9% INJ 100 ML IV SCH ×3 (09:48→22:41)
[2016-06-04] MEDS: SODIUM CHLORIDE 0.9% FLUSH 5 ML FLUSH FLUSH SCH ×2 (09:59→20:49)
[2016-06-04] MEDS ORDERED: MAGNESIUM CITRATE SOLN 300 ML BTL PO ONE (11:15)
[2016-06-04 12:00] VITALS: BP 94/53; PULSE 92; RESP 17; TEMP 98.8; O2SAT 96
[2016-06-04] MEDS ORDERED: BISACODYL 10 MG SUPP RECTAL PRN (14:00)
[2016-06-04] MEDS: SODIUM CHLORIDE 0.9% FLUSH 5 ML FLUSH FLUSH PRN ×2 (14:28→18:29)
--- NOTE | 2016-06-04 14:59 | HHI.PR ---
Subjective Remarks No N or V. No significant BMs. Offered disimpaction, but he wants to try Mag Citrate. Minimal with enema yesterday. Objective Vital Signs Date Time Temp Pulse Resp B/P Pulse Ox O2 Delivery O2 Flow Rate FiO2 06/04/16 12:00 98.8 92 17 94/53 96 06/04/16 08:00 98.5 88 18 121/71 95 06/04/16 03:33 16 06/04/16 00:00 99.5 94 16 130/82 96 06/03/16 20:00 98.7 92 18 104/54 95 06/03/16 16:02 96 06/03/16 15:52 95 16 129/59 98 I/O 06/03/16 06/03/16 06/03/16 06/04/16 06/04/16 06/04/16 07:00 15:00 23:00 07:00 15:00 23:00 Intake Total 240 ml 2010 ml Output Total 900 ml 200 ml Balance -660 ml 1810 ml Intake Oral 240 ml 120 ml IV Total 1890 ml Output Urine Total 900 ml 200 ml # Bowel Movements 0 0 Result Diagram: 06/04/16 0705 06/04/16 0705 Objective Remarks Abd: soft Rectal: Not done today. Labs:ok Assessment and Plan Assessment and Plan Soft fecal impaction. Gave nursing order for therapeutic gastrograffin enema for disimpaction for intractable soft fecal impaction, if Mag Citrate repeat is unsuccessful. Clark Crockett MD Jun 04, 2016 14:59
[2016-06-04 15:47] VITALS: BP 108/92; PULSE 80; RESP 16; TEMP 98.2; O2SAT 95
--- NOTE | 2016-06-04 18:29 | RADRPT ---
EXAM DATE/TIME: 06/04/2016 17:14 [place] COMPARISON: No previous studies available for comparison. INDICATIONS : Constipation, abdominal pain. FLUORO TIME: 2.3 minutes IMAGE COUNT: 19 CONTRAST: 1. [facility] MEDICAL HISTORY : None. SURGICAL HISTORY : Left hernia repair ENCOUNTER: Initial ACUITY: 1 day PAIN SCORE: 10/10 LOCATION: Bilateral lower quadrant FINDINGS: A Gastrografin enema was performed. There is a large amount of fecal debris within the rectosigmoid c olon. There is no evidence of colonic obstruction. CONCLUSION: Large amount of fecal debris within the rectosigmoid colon. Osei Baker MD on June 04, 2016 at 18:26 Board Certified Radiologist. This report was verified electronically.
[2016-06-04 20:00] VITALS: BP 118/58; PULSE 101; RESP 18; TEMP 99.5; O2SAT 99
[2016-06-04] MEDS: VANCOMYCIN INJ 1,000 MG in SODIUM CHLOR 0.9% 250 ML INJ 250 ML IV SCH (20:49)
[2016-06-04] MEDS: ZOLPIDEM TARTRATE 10 MG TAB PO PRN (22:42)
[2016-06-05] VITALS: BP 115/52; PULSE 83; RESP 16; TEMP 98.4; O2SAT 98
[2016-06-05] MEDS: HYDROmorphone HCL PF 1 MG/ML VIAL IV PUSH PRN ×4 (04:51→21:06)
[2016-06-05] MEDS: LACTATED RINGER'S 1000 ML INJ 1,000 ML IV SCH ×3 (04:52→22:32)
[2016-06-05] MEDS: ENOXAPARIN SODIUM 40 MG/0.4 ML SYRINGE SQ SCH (04:52)
[2016-06-05 08:00] VITALS: BP 135/82; PULSE 78; RESP 16; TEMP 97.2; O2SAT 97
[2016-06-05] MEDS: MEGESTROL ACETATE SUSP 400 MG/10 ML CUP PO SCH (08:06)
[2016-06-05] MEDS: CHOLECALCIFEROL (VIT D3) 1000 UNIT TAB PO SCH (08:08)
[2016-06-05] MEDS: BACLOFEN 10 MG TAB PO SCH ×3 (08:08→17:08)
[2016-06-05] MEDS: SODIUM CHLORIDE 0.9% FLUSH 5 ML FLUSH FLUSH SCH ×2 (08:08→21:00)
[2016-06-05] MEDS: DICYCLOMINE HCL 10 MG CAP PO SCH ×4 (08:08→21:06)
[2016-06-05] MEDS: AZTREONAM INJ 1,000 MG in SODIUM CHLORIDE 0.9% INJ 100 ML IV SCH ×3 (08:08→22:31)
[2016-06-05] MEDS: PANTOPRAZOLE SOD 40 MG DELAYED RELEASE TAB PO SCH ×2 (08:08→21:06)
[2016-06-05] MEDS: DOCUSATE SODIUM 100 MG CAP PO SCH ×2 (08:08→21:06)
[2016-06-05] MEDS: PRAVASTATIN SOD 40 MG TAB PO SCH (08:08)
--- NOTE | 2016-06-05 08:15 | HHI.PR ---
Subjective Remarks He had the gastrograffin enema and later had multiple bowel movements. He states that he feels so much better after the bowel movements. He is tolerating the other medications, except he refuses the Megace. Results of the urine culture reveals E. coli as the infective agent. Objective Vital Signs Date Time Temp Pulse Resp B/P Pulse Ox O2 Delivery O2 Flow Rate FiO2 06/05/16 05:21 16 06/05/16 00:00 98.4 83 16 115/52 98 06/04/16 20:00 99.5 101 18 118/58 99 06/04/16 15:47 98.2 80 16 108/92 95 06/04/16 12:00 98.8 92 17 94/53 96 I/O 06/04/16 06/04/16 06/04/16 06/05/16 06/05/16 06/05/16 07:00 15:00 23:00 07:00 15:00 23:00 Intake Total 2010 ml 804 ml 120 ml 240 ml Output Total 200 ml 1075 ml 1230 ml 500 ml Balance 1810 ml -271 ml -1110 ml -260 ml Intake Oral 120 ml 804 ml 120 ml 240 ml IV Total 1890 ml Output Urine Total 200 ml 1075 ml 550 ml 500 ml Stool Total 680 ml # Bowel Movements 0 0 2 1 Result Diagram: 06/04/1670406/04/16704 Objective Remarks GENERAL: Alert and appears much more comfortable this morning SKIN: Warm and dry. HEAD: Normocephalic. EYES: No scleral icterus. No injection or drainage. NECK: Supple, trachea midline. No JVD or lymphadenopathy. CARDIOVASCULAR: Regular rate and rhythm without murmurs, gallops, or rubs. RESPIRATORY: Breath sounds equal bilaterally. No accessory muscle use. GASTROINTESTINAL: Abdomen soft, non-tender, nondistended. MUSCULOSKELETAL: No cyanosis, or edema. Pulses at 2+/4+. BACK: Nontender Scoliosis deformity. No CVA tenderness. No sacral edema. Assessment and Plan Assessment and Plan ASSESSMENT 1. Early Sepsis. 2. Urinary Tract Infection. 3. Hypokalemia. 4. Severe Constipation with Fecal Impaction. 5. Recent Hemorrhoidectomy. 6. Quadriplegia. 7. Cervical Syndrome. PLAN 1. Continue with the intravenous antibiotics. 2 Urine Culture results are noted. 3. Intravenous hydration and electrolyte repletion. 4. Intravenous antibiotics. 5. Intravenous analgesic support. 6. Colon-Rectal Surgery follows. 7. Use of cathartic agents as needed. 8. Follow up laboratory assessment. 9. DVT and PE prophylaxis. Mark Pabon MD Jun 05, 2016 08:15
--- NOTE | 2016-06-05 10:18 | HHI.PR ---
Subjective Remarks No N or V. Multiple soft BMs yesterday. E Coli UTI sensitive to Bactrim. Objective Vital Signs Date Time Temp Pulse Resp B/P Pulse Ox O2 Delivery O2 Flow Rate FiO2 06/05/16 08:00 97.2 78 16 135/82 97 06/05/16 05:21 16 06/05/16 00:00 98.4 83 16 115/52 98 06/04/16 20:00 99.5 101 18 118/58 99 06/04/16 15:47 98.2 80 16 108/92 95 06/04/16 12:00 98.8 92 17 94/53 96 I/O 06/04/16 06/04/16 06/04/16 06/05/16 06/05/16 06/05/16 07:00 15:00 23:00 07:00 15:00 23:00 Intake Total 2010 ml 804 ml 120 ml 240 ml Output Total 200 ml 1075 ml 1230 ml 500 ml Balance 1810 ml -271 ml -1110 ml -260 ml Intake Oral 120 ml 804 ml 120 ml 240 ml IV Total 1890 ml Output Urine Total 200 ml 1075 ml 550 ml 500 ml Stool Total 680 ml # Bowel Movements 0 0 2 1 Result Diagram: 06/04/16 0705 06/04/16 07 Objective Remarks Abd: soft Rectal: Not done today. Labs:ok Assessment and Plan Assessment and Plan Stable from Hemorrhoidectomy and Bowel regimen perspective OK for Regular diet. Decrease Hydrocodone due to constipation. Tolerated Ambien for sleep. OK to D/C anytime from CRS standpoint Clark Crockett MD Jun 05, 2016 10:17
[2016-06-05 20:00] VITALS: BP 148/84; PULSE 64; RESP 18; TEMP 97.6; O2SAT 95
[2016-06-05] MEDS: ZOLPIDEM TARTRATE 10 MG TAB PO PRN (22:31)
[2016-06-06] VITALS: BP 107/58; PULSE 96; RESP 17; TEMP 98.6; O2SAT 96
[2016-06-06] MEDS: HYDROmorphone HCL PF 1 MG/ML VIAL IV PUSH PRN ×5 (03:07→20:03)
[2016-06-06] MEDS: ENOXAPARIN SODIUM 40 MG/0.4 ML SYRINGE SQ SCH (05:31)
[2016-06-06 05:36] VITALS: BP 145/95; PULSE 75; RESP 18; TEMP 97.4; O2SAT 99
[2016-06-06] MEDS: LACTATED RINGER'S 1000 ML INJ 1,000 ML IV SCH ×2 (07:50→17:25)
[2016-06-06 08:00] VITALS: BP 131/85; PULSE 96; RESP 17; TEMP 97.4; O2SAT 99
[2016-06-06] MEDS: AZTREONAM INJ 1,000 MG in SODIUM CHLORIDE 0.9% INJ 100 ML IV SCH ×2 (08:44→15:31)
--- NOTE | 2016-06-06 08:44 | HHI.PR ---
Subjective Remarks No N or V. Multiple complaints...Sleeping...Suppositories for Bowels....Nursing care. Objective Vital Signs Date Time Temp Pulse Resp B/P Pulse Ox O2 Delivery O2 Flow Rate FiO2 06/06/16 05:36 97.4 75 18 145/95 99 06/06/16 00:00 98.6 96 17 107/58 96 06/05/16 20:00 97.6 64 18 148/84 95 I/O 06/05/16 06/05/16 06/05/16 06/06/16 06/06/16 06/06/16 07:00 15:00 23:00 07:00 15:00 23:00 Intake Total 240 ml 1286 ml 671 ml 1086 ml Output Total 500 ml 400 ml 900 ml 3000 ml Balance -260 ml 886 ml -229 ml -1914 ml Intake Oral 240 ml 480 ml 240 ml 240 ml IV Total 806 ml 431 ml 846 ml Output Urine Total 500 ml 400 ml 900 ml 3000 ml # Bowel Movements 1 1 Result Diagram: 06/04/1670406/04/16704 Objective Remarks Abd: soft Rectal: Not done. Labs:ok Assessment and Plan Assessment and Plan Stable from Hemorrhoidectomy and Bowel regimen perspective. May use his Dulcolax suppositories because Hospitals are not the same OK to D/C anytime from CRS standpoint Clark Crockett MD Jun 06, 2016 08:44
[2016-06-06] MEDS: PRAVASTATIN SOD 40 MG TAB PO SCH (08:45)
[2016-06-06] MEDS: DICYCLOMINE HCL 10 MG CAP PO SCH ×4 (08:45→20:10)
[2016-06-06] MEDS: PANTOPRAZOLE SOD 40 MG DELAYED RELEASE TAB PO SCH ×2 (08:45→20:11)
[2016-06-06] MEDS: CHOLECALCIFEROL (VIT D3) 1000 UNIT TAB PO SCH (08:46)
[2016-06-06] MEDS: DOCUSATE SODIUM 100 MG CAP PO SCH ×2 (08:46→20:10)
[2016-06-06] MEDS: BACLOFEN 10 MG TAB PO SCH ×3 (08:46→17:25)
[2016-06-06] MEDS: SODIUM CHLORIDE 0.9% FLUSH 5 ML FLUSH FLUSH SCH ×2 (08:46→20:11)
[2016-06-06 12:00] VITALS: BP 85/53; PULSE 92; RESP 17; TEMP 97.9; O2SAT 98
[2016-06-06 16:00] VITALS: BP 148/70; PULSE 85; RESP 17; TEMP 97.5; O2SAT 98
[2016-06-06 20:00] VITALS: BP 97/54; PULSE 93; RESP 20; TEMP 98.6; O2SAT 99
[2016-06-06] MEDS: ZOLPIDEM TARTRATE 10 MG TAB PO PRN (22:31)
[2016-06-07] MEDS: AZTREONAM INJ 1,000 MG in SODIUM CHLORIDE 0.9% INJ 100 ML IV SCH ×2 (00:13→08:06)
[2016-06-07] MEDS: HYDROmorphone HCL PF 1 MG/ML VIAL IV PUSH PRN ×3 (03:16→11:35)
[2016-06-07] MEDS: ENOXAPARIN SODIUM 40 MG/0.4 ML SYRINGE SQ SCH (03:17)
[2016-06-07] MEDS: LACTATED RINGER'S 1000 ML INJ 1,000 ML IV SCH (03:18)
[2016-06-07] MEDS: ONDANSETRON HCL 4 MG/2 ML VIAL IVP PRN (03:21)
[2016-06-07 08:00] VITALS: BP 117/78; PULSE 83; RESP 17; TEMP 97.2; O2SAT 97
[2016-06-07] MEDS: PANTOPRAZOLE SOD 40 MG DELAYED RELEASE TAB PO SCH (08:06)
[2016-06-07] MEDS: DICYCLOMINE HCL 10 MG CAP PO SCH ×2 (08:06→13:00)
[2016-06-07] MEDS: DOCUSATE SODIUM 100 MG CAP PO SCH (08:06)
[2016-06-07] MEDS: CHOLECALCIFEROL (VIT D3) 1000 UNIT TAB PO SCH (08:06)
[2016-06-07] MEDS: PRAVASTATIN SOD 40 MG TAB PO SCH (08:06)
[2016-06-07] MEDS: SODIUM CHLORIDE 0.9% FLUSH 5 ML FLUSH FLUSH SCH (09:00)
[2016-06-07] MEDS: BACLOFEN 10 MG TAB PO SCH ×2 (09:00→13:00)
--- NOTE | 2016-06-07 09:12 | HHI.PR ---
Subjective . No Complaints other than nursing care, etc. Having BMs Objective . Rectal: wounds clean,intact Assessment/Plan . Stable CRS standpoint No f/u with me needed. D/W pt and Mother. Clark Crockett MD Jun 07, 2016 09:12
--- NOTE | 2016-06-07 11:23 | HHI.PR ---
Subjective Remarks He states that he feels so much better today. He is tolerating all of the current medications well. Objective Vital Signs Date Time Temp Pulse Resp B/P Pulse Ox O2 Delivery O2 Flow Rate FiO2 06/07/16 08:00 97.2 83 17 117/78 97 06/06/16 20:00 98.6 93 20 97/54 99 06/06/16 16:00 97.5 85 17 148/70 98 06/06/16 12:00 97.9 92 17 85/53 98 I/O 06/06/16 06/06/16 06/06/16 06/07/16 06/07/16 06/07/16 07:00 15:00 23:00 07:00 15:00 23:00 Intake Total 1086 ml 480 ml 960 ml 713 ml Output Total 3000 ml 1100 ml 1000 ml 2600 ml Balance -1914 ml -620 ml -40 ml -1887 ml Intake Oral 240 ml 480 ml 960 ml 240 ml IV Total 846 ml 473 ml Output Urine Total 3000 ml 1100 ml 1000 ml 2600 ml # Bowel Movements 1 1 Result Diagram: 06/04/1670406/04/16704 Objective Remarks GENERAL: Alert and appears comfortable today. SKIN: Warm and dry. HEAD: Normocephalic. EYES: No scleral icterus. No injection or drainage. NECK: Supple, trachea midline. No JVD or lymphadenopathy. CARDIOVASCULAR: Regular rate and rhythm without murmurs, gallops, or rubs. RESPIRATORY: Breath sounds equal bilaterally. No accessory muscle use. GASTROINTESTINAL: Abdomen soft, non-tender, nondistended. MUSCULOSKELETAL: No cyanosis, or edema. Pulses at 2+/4+. BACK: Nontender Scoliosis deformity. No CVA tenderness. No sacral edema. Assessment and Plan Assessment and Plan ASSESSMENT 1. Early Sepsis. 2. Urinary Tract Infection, on admission. 3. Hypokalemia-repleted. 4. Severe Constipation with Fecal Impaction. 5. Recent Hemorrhoidectomy. 6. Quadriplegia. 7. Severe Scoliosis of the Spine. PLAN 1. Continue with the current regimen of medications. 2. Urine Culture results noted and antibiotics chosen. 3. Okay to go home today. Mark Pabon MD Jun 07, 2016 11:23
[2016-06-07] MEDS ORDERED: DOXY100T PO (11:35)
[2016-06-07] MEDS ORDERED: BACT800T5 PO (11:35)
[2016-06-07 12:00] VITALS: BP 124/60; PULSE 86; RESP 17; TEMP 97.5; O2SAT 99
[2016-06-07] MEDS ORDERED: DOXYCYCLINE HYCLATE 100 MG TAB PO SCH (21:00)
[2016-06-07] MEDS ORDERED: SULFAMETHOXAZOLE-TRIMETHOPRIM DS 800-160 MG TAB PO SCH (21:00)
== END 2016-06-07 13:40 | disposition home or self-care (01) | DRG 871 ==
LOC: NEDAMB 16:05 → NEDA 23:38 → NEDH 06-03 08:06 → N07A 06-03 16:06
PROVIDERS: ADMIT Internal Medicine; ATTEND Internal Medicine
DX: A41.9 Sepsis, unspecified organism (principal); G82.50 Quadriplegia, unspecified; M41.9 Scoliosis, unspecified; N31.9 Neuromuscular dysfunction of bladder, unspecified; N39.0 Urinary tract infection, site not specified; K56.41 Fecal impaction; E87.6 Hypokalemia; B96.20 Unspecified Escherichia coli [E. coli] as the cause of diseases classified elsewhere; G89.18 Other acute postprocedural pain; E78.5 Hyperlipidemia, unspecified; G89.4 Chronic pain syndrome; Z88.0 Allergy status to penicillin
CPT/HCPCS: 70450; 71010; 74177; 74270; 80048; 80053; 81001; 83605; 83735; 85025; 87040; 87077; 87086; 87186; 93005; 96372; 96374; 96375; J0500; J1170; J1650; J2405; J3370; J7030; J7050; J7120; Q9967

== ENCOUNTER 2016-06-11 20:30 | Inpatient (IN) | payer MEDICARE ==
[~2016-06-11] VITALS: Ht 190.5 cm; Wt 51.0 kg
[~2016-06-11 20:30] MED LIST changes: +BACT800T5 PO; +DOXY100T PO
[2016-06-11 20:32] VITALS: BP 135/97; PULSE 85; RESP 20; TEMP 98.6; O2SAT 97
[2016-06-11 20:57] VITALS: O2SAT 97
[2016-06-11] MEDS ORDERED: HYDROmorphone HCL PF 1 MG/ML VIAL IV PUSH ONE (21:15)
[2016-06-11] MEDS ORDERED: ONDANSETRON HCL 4 MG/2 ML VIAL IV PUSH ONE (21:15)
[2016-06-11] MEDS ORDERED: ORPHENADRINE INJ 60 MG/2 ML AMP IM ONE (21:30)
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
[2016-06-11 21:37] LABS: AUTOMATED NEUTROPHIL # 5.2 TH/MM3 (1.8-7.7); BASOPHIL # 0.1 TH/MM3 (0-0.2); BASOPHIL % 0.8 % (0.0-2.0); EOSINOPHIL # 0.1 TH/MM3 (0-0.4); EOSINOPHIL % 1.4 % (0.0-4.0); HEMATOCRIT 37.4 % (39.0-51.0); HEMO FLAGS DIFF FINAL; LYMPH % 18.9 % (9.0-44.0); LYMPHOCYTE # 1.4 TH/MM3 (1.0-4.8); MEAN CELL VOLUME 83.7 FL (80.0-100.0); MEAN CORPUSCULAR HEMOGLOBIN 29.1 PG (27.0-34.0); MEAN CORPUSCULAR HGB CONC 34.7 % (32.0-36.0); MONO % 9.8 % (0.0-8.0); NEUT % 69.1 % (16.0-70.0); PLATELET COUNT 410 TH/MM3 (150-450); RED BLOOD COUNT 4.47 MIL/MM3 (4.50-5.90); RED CELL DISTRIBUTION WIDTH 12.9 % (11.6-17.2); WHITE BLOOD COUNT 7.5 TH/MM3 (4.0-11.0)
[2016-06-11 21:38] LABS: BACTERIA, URINE OCC /hpf; BLOOD, URINE NEG (NEG); COMMENT (UR) CULTURE INDICATED; CULTURE IF INDICATED CULTURE INDICATED; GLUCOSE,URINE NEG (NEG); KETONE, URINE TRACE mg/dL (NEG); NITRITE,URINE NEG (NEG); PH, URINE 7.5 (5.0-8.5); URINE COLOR YELLOW (YELLW/STRAW)
[2016-06-11 21:41] LABS: APTT (PATIENT) 26.8 SEC (24.3-30.1); PROTHROMBIN TIME - PATIENT 10.7 SEC (9.8-11.6)
[2016-06-11 21:42] LABS: ANION GAP 12 MEQ/L (5-15); AST (GOT) 20 U/L (15-37); BICARBONATE 22.1 MEQ/L (21.0-32.0); BLOOD UREA NITROGEN 10 MG/DL (7-18); CHLORIDE 101 MEQ/L (98-107); GLOMERULAR FILTRATION RATE 147 ML/MIN (>89); SODIUM (NA) 135 MEQ/L (136-145)
[2016-06-11 21:46] LABS: ALKALINE PHOSPHATASE 130 U/L (45-117); ALT (GPT) 27 U/L (12-78); TOTAL BILIRUBIN ADULT 0.3 MG/DL (0.2-1.0)
--- NOTE | 2016-06-11 21:56 | RADRPT ---
EXAM DATE/TIME: 06/11/2016 21:10 [facility] COMPARISON: CHEST SINGLE AP, June 02, 2016, 17:26. INDICATIONS : Left sided chest pain for 24 hours MEDICAL HISTORY : None. SURGICAL HISTORY : None. ENCOUNTER: Initial ACUITY: 1 day PAIN SCORE: 9/10 LOCATION: Left chest FINDINGS: Again seen are multiple subacute healing left-sided rib fractures. No new consolidation are seen. No pneumothorax. Apical pleural thickening. Heart size within normal limits. Moderate thoracic dextrosco liosis. CONCLUSION: 1. Stable exam since June 02. Healing left-sided rib fractures. Moderate scoliosis. No acute infil trate. Venkat Hodgson MD on June 11, 2016 at 21:54 Board Certified Radiologist. This report was verified electronically.
[2016-06-11 22:00] LABS: CREATINE KINASE 132 U/L (39-308)
[2016-06-11 22:12] LABS: CKMB 2.4 NG/ML (0.5-3.6)
[2016-06-11] MEDS ORDERED: IOHEXOL 350 MG/ML 10 ML VIAL (for RAD DIAG) IV ONE (22:30)
[2016-06-11] MEDS ORDERED: ASPIRIN 325 MG TAB PO ONE (22:30)
[2016-06-11] MEDS ORDERED: NITROGLYCERIN 0.4 MG SL 25 TABS/BTL SL ONE (22:30)
[2016-06-11 22:49] VITALS: BP 115/75; PULSE 85; RESP 16; O2SAT 95
--- NOTE | 2016-06-11 23:00 | PD ---
Physical Exam Date Seen by Provider: Jun 11, 2016 Time Seen by Provider: 22:53 Narrative Accepted in transfer of care from Courtney Velarde PA-C GENERAL: SKIN: Warm and dry. HEAD: Normocephalic. EYES: No scleral icterus. No injection or drainage. NECK: Supple, trachea midline. No JVD or lymphadenopathy. CARDIOVASCULAR: Regular rate and rhythm without murmurs, gallops, or rubs. RESPIRATORY: Breath sounds equal bilaterally. No accessory muscle use. GASTROINTESTINAL: Abdomen soft, non-tender, nondistended. MUSCULOSKELETAL: No cyanosis, or edema. BACK: Nontender without obvious deformity. No CVA tenderness. Data Data Last Documented VS Vital Signs Date Time Temp Pulse Resp B/P Pulse Ox O2 Delivery O2 Flow Rate FiO2 06/11/16 22:49 85 16 115/75 95 Room Air 06/11/16 20:32 98.6 Orders Complete Blood Count With Diff (06/11/16 20:45) Comprehensive Metabolic Panel (06/11/16 20:45) Prothrombin Time / Inr (Pt) (06/11/16 20:45) Act Partial Throm Time (Ptt) (06/11/16 20:45) Lipase (06/11/16 20:45) Urinalysis - C+S If Indicated (06/11/16 20:45) Ct Abd/Pel W Iv Contrast(Rout) (06/11/16 20:45) Iv Access Insert/Monitor (06/11/16 20:45) Ecg Monitoring (06/11/16 20:45) Oximetry (06/11/16 20:45) Electrocardiogram (06/11/16 20:47) Ckmb (Isoenzyme) Profile (06/11/16 20:47) Troponin I (06/11/16 20:47) Chest, Single Ap (06/11/16 ) Hydromorphone Pf Inj (Dilaudid Pf Inj) (06/11/16 21:15) Ondansetron Inj (Zofran Inj) (06/11/16 21:15) Orphenadrine Inj (Norflex Inj) (06/11/16 21:30) Urine Culture (06/11/16 20:48) CKMB (06/11/16 20:48) CKMB% (06/11/16 20:48) Aspirin (Aspirin) (06/11/16 22:30) Nitroglycerin Sl (Nitrostat Sl) (06/11/16 22:30) Admit Order (Ed Use Only) (06/11/16 ) ^ Saline Lock (06/11/16 23:31) Resp Oxygen Steven C Titrat 1-4 L (06/11/16 ) ^ Notify Dr: Other (06/11/16 23:31) Sodium Chloride 0.9% Flush (Ns Flush) (06/12/16 09:00) Sodium Chloride 0.9% Flush (Ns Flush) (06/11/16 23:45) Labs Laboratory Tests Test 06/11/16 20:48 White Blood Count 7.5 TH/MM3 Red Blood Count 4.47 MIL/MM3 Hemoglobin 13.0 GM/DL Hematocrit 37.4 % Mean Corpuscular Volume 83.7 FL Mean Corpuscular Hemoglobin 29.1 PG Mean Corpuscular Hemoglobin 34.7 % Concent Red Cell Distribution Width 12.9 % Platelet Count 410 TH/MM3 Mean Platelet Volume 7.5 FL Neutrophils (%) (Auto) 69.1 % Lymphocytes (%) (Auto) 18.9 % Monocytes (%) (Auto) 9.8 % Eosinophils (%) (Auto) 1.4 % Basophils (%) (Auto) 0.8 % Neutrophils # (Auto) 5.2 TH/MM3 Lymphocytes # (Auto) 1.4 TH/MM3 Monocytes # (Auto) 0.7 TH/MM3 Eosinophils # (Auto) 0.1 TH/MM3 Basophils # (Auto) 0.1 TH/MM3 CBC Comment DIFF FINAL Differential Comment Prothrombin Time 10.7 SEC Prothromb Time International 1.0 RATIO Ratio Activated Partial 26.8 SEC Thromboplast Time Urine Color YELLOW Urine Turbidity HAZY Urine pH 7.5 Urine Specific [place] 1.007 Urine Protein NEG mg/dL Urine Glucose (UA) NEG mg/dL Urine Ketones TRACE mg/dL Urine Occult Blood NEG Urine Nitrite NEG Urine Bilirubin NEG Urine Urobilinogen LESS THAN 2.0 MG/DL Urine Leukocyte Esterase LARGE Urine WBC 11 /hpf Urine Bacteria OCC /hpf Urine Yeast (Budding) MANY Microscopic Urinalysis Comment CULTURE INDICATED Sodium Level 135 MEQ/L Potassium Level 4.0 MEQ/L Chloride Level 101 MEQ/L Carbon Dioxide Level 22.1 MEQ/L Anion Gap 12 MEQ/L Blood Urea Nitrogen 10 MG/DL Creatinine 0.58 MG/DL Estimat Glomerular Filtration 147 ML/MIN Rate Random Glucose 92 MG/DL Calcium Level 8.9 MG/DL Total Bilirubin 0.3 MG/DL Aspartate Amino Transf 20 U/L (AST/SGOT) Alanine Aminotransferase 27 U/L (ALT/SGPT) Alkaline Phosphatase 130 U/L Total Creatine Kinase 132 U/L Creatine Kinase MB 2.4 NG/ML Troponin I 0.06 NG/ML Total Protein 7.2 GM/DL Albumin 3.1 GM/DL Lipase 113 U/L [facility] Medical Record Reviewed: Yes Supervised Visit with JASON: Yes Interpretation(s) Last Impressions Abdomen/Pelvis CT 06/11/162044 Signed Impressions: Service Date/Time: Saturday, June 11, 2016 22:30 - CONCLUSION: 1. Mild to moderate constipation. No bowel obstruction, free fluid or free air. 2. Healing left lower rib fractures with callus formation. No pneumothorax. 3. Fatty liver with small cysts. Mild scoliosis. 4. Osteopenia and muscle atrophy in the pelvic girdle. Increased soft tissue in the perirectal and perianal region stable to slightly improved from June 02. No discrete abscess identified. Venkat Hodgson MD Chest X-Ray 06/11/16 0000 Signed Impressions: Service Date/Time: Saturday, June 11, 2016 21:10 - CONCLUSION: 1. Stable exam since June 02. Healing left-sided rib fractures. Moderate scoliosis. No acute infiltrate. Venkat Hodgson MD Laboratory Tests Test 06/11/16 20:48 White Blood Count 7.5 TH/MM3 Red Blood Count 4.47 MIL/MM3 Hemoglobin 13.0 GM/DL Hematocrit 37.4 % Mean Corpuscular Volume 83.7 FL Mean Corpuscular Hemoglobin 29.1 PG Mean Corpuscular Hemoglobin 34.7 % Concent Red Cell Distribution Width 12.9 % Platelet Count 410 TH/MM3 Mean Platelet Volume 7.5 FL Neutrophils (%) (Auto) 69.1 % Lymphocytes (%) (Auto) 18.9 % Monocytes (%) (Auto) 9.8 % Eosinophils (%) (Auto) 1.4 % Basophils (%) (Auto) 0.8 % Neutrophils # (Auto) 5.2 TH/MM3 Lymphocytes # (Auto) 1.4 TH/MM3 Monocytes # (Auto) 0.7 TH/MM3 Eosinophils # (Auto) 0.1 TH/MM3 Basophils # (Auto) 0.1 TH/MM3 CBC Comment DIFF FINAL Differential Comment Prothrombin Time 10.7 SEC Prothromb Time International 1.0 RATIO Ratio Activated Partial 26.8 SEC Thromboplast Time Urine Color YELLOW Urine Turbidity HAZY Urine pH 7.5 Urine Specific [place] 1.007 Urine Protein NEG mg/dL Urine Glucose (UA) NEG mg/dL Urine Ketones TRACE mg/dL Urine Occult Blood NEG Urine Nitrite NEG Urine Bilirubin NEG Urine Urobilinogen LESS THAN 2.0 MG/DL Urine Leukocyte Esterase LARGE Urine WBC 11 /hpf Urine Bacteria OCC /hpf Urine Yeast (Budding) MANY Microscopic Urinalysis Comment CULTURE INDICATED Sodium Level 135 MEQ/L Potassium Level 4.0 MEQ/L Chloride Level 101 MEQ/L Carbon Dioxide Level 22.1 MEQ/L Anion Gap 12 MEQ/L Blood Urea Nitrogen 10 MG/DL Creatinine 0.58 MG/DL Estimat Glomerular Filtration 147 ML/MIN Rate Random Glucose 92 MG/DL Calcium Level 8.9 MG/DL Total Bilirubin 0.3 MG/DL Aspartate Amino Transf 20 U/L (AST/SGOT) Alanine Aminotransferase 27 U/L (ALT/SGPT) Alkaline Phosphatase 130 U/L Total Creatine Kinase 132 U/L Creatine Kinase MB 2.4 NG/ML Troponin I 0.06 NG/ML Total Protein 7.2 GM/DL Albumin 3.1 GM/DL Lipase 113 U/L Differential Diagnosis chest pain, acs, mi, pneumonia, rib fractures, pneumothorax, sbo, abscess, uti Narrative Course accepted in transfer of care from [facility] --for follow up of pending CT and admission Sepsis Criteria Severe Sepsis (+one): Acute Oliguria/Renal Failure Physician Communication Physician Communication case labs and imaging discussed with Dr Pabon(PCP) will admit to [facility] Diagnosis Primary Impression: NSTEMI (non-ST elevated myocardial infarction) Additional Impression: UTI (urinary tract infection) Qualified Code: N30.00 - Acute cystitis without hematuria Admitting Information Admitting Physician Requests: Admit Elza Angeles MD Jun 11, 2016 23:00
--- NOTE | 2016-06-11 23:05 | RADRPT ---
EXAM DATE/TIME: 06/11/2016 22:30 [facility] COMPARISON: No previous studies available for comparison. INDICATIONS : Severe abdominal pain. IV CONTRAST: 93 cc Omnipaque 350 (iohexol) IV ORAL CONTRAST: No oral contrast ingested. RADIATION DOSE: 5.65 CTDIvol (mGy) MEDICAL HISTORY : None SURGICAL HISTORY : Inguinal hernia repair. ENCOUNTER: Initial ACUITY: 1 day PAIN SCALE: 10/10 LOCATION: abdomen TECHNIQUE: Volumetric scanning of the abdomen and pelvis was performed. Using automated exposure control and ad justment of the mA and/or kV according to patient size, radiation dose was kept as low as reasonably achievable to obtain optimal diagnostic quality images. FINDINGS: Multiple healing lower left sided rib fractures noted similar to June 02. No new basilar lung cons olidation. Small presumed cyst noted in the inferior liver. Spleen, adrenals, kidneys and pancreas unremarkable. No calcified gallstones or biliary ductal dilatation. There is mild constipation. Aguirre catheter present in decompressed bladder. There is some increased s oft tissue in the perirectal region, stable to decreased from June 02. No new abscess identified w ithin the abdomen pelvis. Bones are osteopenic associated pelvic girdle. Patient is reportedly parapl egic. There is extensive muscular atrophy. CONCLUSION: 1. Mild to moderate constipation. No bowel obstruction, free fluid or free air. 2. Healing left lower rib fractures with callus formation. No pneumothorax. 3. Fatty liver with small cysts. Mild scoliosis. 4. Osteopenia and muscle atrophy in the pelvic girdle. Increased soft tissue in the perirectal and pe rianal region stable to slightly improved from June 02. No discrete abscess identified. Venkat Hodgson MD on June 11, 2016 at 22:58 Board Certified Radiologist. This report was verified electronically.
[2016-06-11] MEDS ORDERED: SODIUM CHLORIDE 0.9% FLUSH 5 ML FLUSH IVF PRN (23:45)
[2016-06-12] VITALS (28 sets, daily range): BP systolic 89–126; BP diastolic 57–81; PULSE 72–126; RESP 16–20; TEMP 98.2–98.6; O2SAT 96–100
[2016-06-12] MEDS ORDERED: SODIUM CHLORIDE 0.9% FLUSH 5 ML FLUSH FLUSH PRN
[2016-06-12] MEDS ORDERED: NALOXONE HCL 0.4 MG/ML AMP IV PRN
[2016-06-12] MEDS ORDERED: METOCLOPRAMIDE HCL 10 MG/2 ML VIAL IV PUSH PRN
[2016-06-12] MEDS: SODIUM CHLOR 0.9% 1000 ML INJ 1,000 ML IV SCH ×2 (00:33→13:11)
[2016-06-12] MEDS: HEPARIN SODIUM - SQ 10,000 UNITS/ML VIAL SQ SCH ×3 (00:33→23:34)
[2016-06-12] MEDS: DOCUSATE SODIUM 100 MG CAP PO SCH ×5 (00:33→18:44)
[2016-06-12] MEDS: ZOLPIDEM TARTRATE 5 MG TAB PO PRN ×2 (01:40→23:34)
[2016-06-12] MEDS: HYDROmorphone HCL PF 1 MG/ML VIAL IV PUSH PRN ×4 (01:48→21:53)
[2016-06-12] MEDS ORDERED: SULFAMETHOX/TRIMETHOPRIM INJ 320 MG in DEXTROSE 5% IN WATE 500 ML INJ 500 ML IV SCH ×2 (02:00)
[2016-06-12] MEDS: NITROGLYCERIN 2% OINT 1 GM PACKET TOPICAL SCH ×3 (06:00→18:00)
[2016-06-12] MEDS: ONDANSETRON HCL 4 MG/2 ML VIAL IVP PRN (07:59)
[2016-06-12] MEDS: CHOLECALCIFEROL (VIT D3) 1000 UNIT TAB PO SCH (08:34)
[2016-06-12] MEDS: SODIUM CHLORIDE 0.9% FLUSH 5 ML FLUSH FLUSH SCH ×2 (08:34→21:00)
[2016-06-12] MEDS: PRAVASTATIN SOD 40 MG TAB PO SCH (08:34)
[2016-06-12] MEDS ORDERED: SODIUM CHLORIDE 0.9% FLUSH 5 ML FLUSH IVF SCH (09:00)
[2016-06-12] MEDS ORDERED: Methenamine Hippurate 1 GM PO SCH (09:00)
[2016-06-12] MEDS: DOXYCYCLINE HYCLATE 100 MG TAB PO SCH ×2 (09:00→22:01)
[2016-06-12] MEDS ORDERED: MAGNESIUM CITRATE SOLN 300 ML BTL PO ONE ×2 (09:30→19:00)
[2016-06-12 10:47] LABS: BICARBONATE 25.1 MEQ/L (21.0-32.0); MAGNESIUM 2.2 MG/DL (1.5-2.5); POTASSIUM 3.9 MEQ/L (3.5-5.1)
[2016-06-12 10:49] LABS: INDIRECT BILIRUBIN 0.2 MG/DL (0.0-0.8); TOTAL BILIRUBIN ADULT 0.3 MG/DL (0.2-1.0)
[2016-06-12] MEDS ORDERED: ASPIRIN EC 81 MG TABEC PO ONE (13:00)
[2016-06-12] MEDS ORDERED: SOD PHOSPHATE/SOD BIPHOSPHATE (ADULT) ENEMA 133ML PR ONE (14:15)
[2016-06-12] MEDS: ALPRAZolam 0.25 MG TAB PO SCH ×2 (16:18→21:46)
[2016-06-12] MEDS: AZTREONAM INJ 1,000 MG in SODIUM CHLORIDE 0.9% INJ 100 ML IV SCH ×2 (16:43→22:04)
--- NOTE | 2016-06-12 17:56 | MB ---
cc: GUILLE ANDERSON M.D. DATE OF CONSULTATION: 06/12/2016. 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 He does move his upper extremities; however, he is status post a hemorrhoidectomy two weeks ago. He was recently discharged last Tuesday for a urosepsis, also found to have an ileus at that time. He returns to the emergency room with a chief complaint of lower abdominal pain, nauseousness but no vomiting. He also complains of some constricting pain in the chest area. He had recent left-sided rib fractures as well. Otherwise he denies any fevers, chills, cough, GI or bleeding, paroxysmal nocturnal dyspnea, orthopnea. PAST MEDICAL HISTORY: His past medical history is as per the history of present illness. 1. History of scoliosis. 2. Rotator cuff tear. 3. Anxiety. 4. Depression. 5. Left inguinal hernia repair. 6. Accident in 1981, C5-6-7 spinal fusion. 7. History of bilateral chest tubes for pneumothorax. SOCIAL HISTORY: Drinks alcohol socially. Smokes marijuana. Denies tobacco use. ALLERGIES: PENICILLIN. MEDICATIONS IN THE HOSPITAL: 1. Dicyclomine 20 milligrams at bedtime PRN. 2. Vitamin D3. 3. Colace 100 three times a day. 4. Doxycycline 100 q. 12. 5. Pravastatin 40 milligrams daily. 6. Half inch nitro paste q. 6 hours. 7. Heparin 5000 subcutaneous q. 12 hours. 8. Aspirin 325 milligrams x1. PHYSICAL EXAMINATION: VITAL SIGNS: Blood pressure 90/57, pulse 79, respiratory rate 16, temperature 98.5. GENERAL: He is alert and oriented times three and in mild distress. NECK: The neck is supple. No jugular venous distention. No bruits. CARDIOVASCULAR EXAM: S1 and S2. No murmurs, rubs or gallops. LUNGS: Clear to auscultation bilaterally. ABDOMEN: The abdomen is soft, nontender and nondistended with positive bowel sounds. EXTREMITIES: No lower extremity edema. LABORATORY DATA: White count 7.5, hemoglobin 13.0, hematocrit 37.4, platelet count 410,0000. Sodium 135, potassium 4.0, chloride 101, bicarbonate 22.1, BUN 10, creatinine 0.58. Liver function tests normal. Initial troponin is 0.06 followed by 0.05 and 0.04. Albumin 3.1. LDL is 81, HDL 48.0. INR is 1.0. IMAGING STUDIES: Chest x-ray stable exam since June 02, healing of the left-sided rib fractures, moderate scoliosis. No acute infiltrate. Abdomen and pelvis CT shows mild to moderate constipation. Healing left lower rib fractures with callus formation, fatty liver with small cysts, mild scoliosis, osteopenia and muscle atrophy in the pelvic girdle, increased soft tissue in the perirectal and perianal region, stable to slightly improved from June 02. No discrete abscess identified. EKGS: His EKG shows normal sinus rhythm, right axis deviation, anteroseptal T wave inversions, late R wave transition, possible anterior myocardial infarction, age indeterminate, repolarization abnormality, RVH, incomplete right bundle-branch block. DIAGNOSES: 1. NSTEMI. 2. Abnormal EKG. 3. Hyponatremia. 4. Hypoalbuminemia. 5. Paraplegia. 6. Rib fractures which are healing. DISCUSSION: I have had a detailed conversation about the risks and benefits of heart catheterization with the patient and his mother. I have explained that the EKG and the elevated troponin suggests significant coronary artery disease and I cannot rule out a life threatening ischemic etiology to the aforementioned findings without a left heart catheterization. Unfortunately the patient is not able to lie flat for long periods of time due to severe pain in the back area. Therefore, I mentioned possible solutions such as brachial access; however, this would still require him to lie flat, particularly if intervention was required over a long period time. Could also consider doing the procedure under general anesthesia. At this point in time, the patient and his mother refuse cardiac catheterization. Again, they understand that the patient may have a life-threatening coronary stenosis but at this time prefer medical management. I will get a general anesthesia consult. Meanwhile, agree with statin therapy and continue aspirin 81 milligrams daily. CHAVO inhibitor and beta telma are held due to hypotension. Recommend d/c inhaled marijuana and tobacco. MD JOHNNY Hamlin/MARY /12:53 PM /5:11 PM
--- NOTE | 2016-06-12 19:06 | HHI.HP ---
History of Present Illness Service INTERNAL MEDICINE Primary Care Physician MARK PABON MD Admission Diagnosis NSTEMI. U.T.I. PERSISTENT LOW ABDOMINAL PAIN. Diagnoses: History of Present Illness This is a 51 year old male who recently had admission to [facility] for presentation of sepsis, urinary tract infection, severe constipation and fecal impaction. There was also a history of recent fracture of his left ribs that was somewhat unknown to him and hemorrhoidectomy. He was discharged in stable status. About one and a half days to two days after discharge he began with pain in the lower left region of the abdomen. This recurrence of pain in the left lower quadrant of the abdomen continued to escalate. It persisted and became unrelenting. It could not be controlled with outpatient means. He was therefore transported to the emergency room at [facility]. He is found with elevated Troponin, Urinary Tract Infection and Left Lower Colon Fecal Impaction. He is admitted to further assess his status and treat. Review of Systems Constitutional: COMPLAINS OF: Change in appetite Endocrine: COMPLAINS OF: Polyuria Cardiovascular: COMPLAINS OF: Chest pain Gastrointestinal: COMPLAINS OF: Abdominal pain, Constipation, Nausea Musculoskeletal: COMPLAINS OF: Joint pain, Stiffness, Back pain Psychiatric: COMPLAINS OF: Anxiety Past Family Social History Allergies: Coded Allergies: Penicillin (Verified Allergy, Severe, RASH, 06/11/16) Past Medical History 1. Cervical Syndrome. 2. Low Back Syndrome. 3. Quadriplegia. 4. Neurogenic Bladder. 5. Scoliosis of the Spine. 6. Chronic Pain Syndrome. 7. Hyperlipidemia. Past Surgical History 1. Tendon Transfer of the Right Upper Extremity-1982. 2. C-Spine Laminectomy for C5, C6 and C7-1981. 3. Spinal Cord Cyst Removal. 4. Tonsillectomy and Adenoidectomy as a child-1969. Family History Father is at age 61. His health status is unknown. Mother is alive at age 72. She has a history of hypertension, Osteoarthritis and Glaucoma. Sister is alive at age 37 and in good health. Social History He is single. 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 He does not smoke tobacco. Alcohol intake is on at special social occasions. He does use marijuana on occasion. Physical Exam Vital Signs Vital Signs Date Time Temp Pulse Resp B/P Pulse Ox O2 Delivery O2 Flow Rate FiO2 06/12/16 17:34 96 21 06/12/16 17:01 126 06/12/16 16:00 76 06/12/16 15:45 98.6 92 16 124/79 96 06/12/16 15:00 76 06/12/16 14:00 76 06/12/16 13:01 72 06/12/16 12:00 108 06/12/16 11:30 98.5 79 16 90/57 97 06/12/16 11:00 77 06/12/16 10:00 79 06/12/16 09:15 18 06/12/16 09:00 102 06/12/16 08:15 98.6 90 16 126/81 100 06/12/16 08:00 92 06/12/16 07:00 78 06/12/16 05:39 93 06/12/16 05:37 98.6 80 18 115/72 97 06/12/16 04:00 83 06/12/16 04:00 78 06/12/16 03:00 73 06/12/16 02:00 77 06/12/16 01:00 96 06/12/16 00:45 98.6 96 18 117/74 98 06/12/16 00:27 80 18 115/75 98 Room Air 06/11/16 22:49 85 16 115/75 95 Room Air 06/11/16 20:57 97 Room Air 06/11/16 20:32 98.6 85 20 135/97 97 Physical Exam GENERAL: This is a well-nourished, well-developed, but somewhat thin appearing male patient, in distress for significant abdominal pain. SKIN: No rashes, ecchymoses or lesions. Cool and dry. HEAD: Atraumatic. Normocephalic. No temporal or scalp tenderness. EYES: Pupils equal round and reactive. Extraocular motions intact. No scleral icterus. No injection or drainage. ENT: Nose without bleeding, purulent drainage or septal hematoma. Throat without erythema, tonsillar hypertrophy or exudate. Uvula midline. Airway patent. NECK: Trachea midline. No JVD or lymphadenopathy. Supple, nontender, no meningeal signs. CARDIOVASCULAR: Regular rate and rhythm without murmurs, gallops, or rubs. RESPIRATORY: Clear to auscultation. Breath sounds equal bilaterally. No wheezes , rales, or rhonchi. GASTROINTESTINAL: Abdomen is soft. There is tenderness in the lower mid to left lower abdomen areas. It is nondistended. There is no hepato-splenomegaly , or palpable masses. No guarding. MUSCULOSKELETAL: Extremities without clubbing, cyanosis, or edema. No joint tenderness, effusion, or edema noted. No calf tenderness. Negative Homans sign bilaterally. NEUROLOGICAL: Awake and alert. He has marked paresis of the upper limbs and plegia of the lower limbs. Normal speech. Laboratory Laboratory Tests Test 06/11/16 06/12/16 06/12/16 20:48 00:20 10:10 White Blood Count 7.5 Red Blood Count 4.47 Hemoglobin 13.0 Hematocrit 37.4 Mean Corpuscular Volume 83.7 Mean Corpuscular Hemoglobin 29.1 Mean Corpuscular Hemoglobin 34.7 Concent Red Cell Distribution Width 12.9 Platelet Count 410 Mean Platelet Volume 7.5 Neutrophils (%) (Auto) 69.1 Lymphocytes (%) (Auto) 18.9 Monocytes (%) (Auto) 9.8 Eosinophils (%) (Auto) 1.4 Basophils (%) (Auto) 0.8 Neutrophils # (Auto) 5.2 Lymphocytes # (Auto) 1.4 Monocytes # (Auto) 0.7 Eosinophils # (Auto) 0.1 Basophils # (Auto) 0.1 CBC Comment DIFF FINAL Differential Comment Prothrombin Time 10.7 Prothromb Time International 1.0 Ratio Activated Partial 26.8 Thromboplast Time Urine Color YELLOW Urine Turbidity HAZY Urine pH 7.5 Urine Specific [place] 1.007 Urine Protein NEG Urine Glucose (UA) NEG Urine Ketones TRACE Urine Occult Blood NEG Urine Nitrite NEG Urine Bilirubin NEG Urine Urobilinogen LESS THAN 2.0 Urine Leukocyte Esterase LARGE Urine WBC 11 Urine Bacteria OCC Urine Yeast (Budding) MANY Microscopic Urinalysis Comment CULTURE INDICATED Sodium Level 135 136 Potassium Level 4.0 3.9 Chloride Level 101 103 Carbon Dioxide Level 22.1 25.1 Anion Gap 12 8 Blood Urea Nitrogen 10 8 Creatinine 0.58 0.53 Estimat Glomerular Filtration 147 163 Rate Random Glucose 92 103 Calcium Level 8.9 8.5 Total Bilirubin 0.3 0.3 Aspartate Amino Transf 20 11 (AST/SGOT) Alanine Aminotransferase 27 23 (ALT/SGPT) Alkaline Phosphatase 130 117 Total Creatine Kinase 132 226 113 Creatine Kinase MB 2.4 Troponin I 0.06 0.05 0.04 Total Protein 7.2 6.6 Albumin 3.1 2.9 Lipase 113 Magnesium Level 2.2 Direct Bilirubin 0.1 Indirect Bilirubin 0.2 Triglycerides Level 143 Cholesterol Level 138 LDL Cholesterol 81 HDL Cholesterol 28.0 Cholesterol/HDL Ratio 4.92 Date/Time Procedure Status Source Growth 06/11/16 20:48 Urine Culture - Preliminary Resulted Urine Clean Catch IMMATURE GROWTH - REINCUBATE Result Diagram: 06/11/16204706/12/16 1010 Assessment and Plan Assessment and Plan ASSESSMENT 1. Non ST Elevation Myocardial Infarction. 2. Urinary Tract Infection, on admission. 3. Fecal Impaction of Left Colon. 4. Hyponatremia. 5. Recent Hemorrhoidectomy. 6. Quadriplegia. 7. Severe Scoliosis of the Spine. PLAN 1. Admit to the Telemetry Unit. 2. Serial EKG's and Serial Cardiac Enzymes. 3. Use of topical nitrates. 4. Intravenous hydration and electrolyte repletion. 5. Consultation to Cardiology. 6. Follow up laboratory assessment. 7. DVT, PE and PUD prophylaxis. Mark Pabon MD Jun 12, 2016 19:06
[2016-06-12] MEDS: DICYCLOMINE HCL 20 MG/2 ML VIAL IM PRN (22:04)
[2016-06-13] VITALS (25 sets, daily range): BP systolic 113–141; BP diastolic 76–89; PULSE 0–204; RESP 16; TEMP 98.1–98.6; O2SAT 96–99
[2016-06-13] MEDS: SODIUM CHLOR 0.9% 1000 ML INJ 1,000 ML IV SCH ×2 (02:31→17:31)
[2016-06-13] MEDS: HYDROmorphone HCL PF 1 MG/ML VIAL IV PUSH PRN ×5 (02:45→18:27)
[2016-06-13] MEDS: DICYCLOMINE HCL 20 MG/2 ML VIAL IM PRN ×2 (05:52→12:37)
[2016-06-13] MEDS: AZTREONAM INJ 1,000 MG in SODIUM CHLORIDE 0.9% INJ 100 ML IV SCH ×3 (06:00→23:50)
[2016-06-13] MEDS: ALPRAZolam 0.25 MG TAB PO SCH ×2 (08:53→21:52)
[2016-06-13] MEDS: DOCUSATE SODIUM 100 MG CAP PO SCH ×3 (08:53→17:26)
[2016-06-13] MEDS: ASPIRIN EC 81 MG TABEC PO SCH (08:53)
[2016-06-13] MEDS: DOXYCYCLINE HYCLATE 100 MG TAB PO SCH ×2 (08:53→21:52)
[2016-06-13] MEDS: PRAVASTATIN SOD 40 MG TAB PO SCH (08:53)
[2016-06-13] MEDS: CHOLECALCIFEROL (VIT D3) 1000 UNIT TAB PO SCH (08:53)
[2016-06-13] MEDS: SODIUM CHLORIDE 0.9% FLUSH 5 ML FLUSH FLUSH SCH ×2 (08:55→21:53)
[2016-06-13] MEDS: HEPARIN SODIUM - SQ 10,000 UNITS/ML VIAL SQ SCH ×2 (12:26→23:54)
[2016-06-13] MEDS ORDERED: CARVEDILOL 3.125 MG TAB PO ONE (14:45)
--- NOTE | 2016-06-13 14:45 | PD.CARD.PN ---
Subjective Subjective Remarks had more chest pain this am Objective Vital Signs / I&O Vital Signs Date Time Temp Pulse Resp B/P Pulse Ox O2 Delivery O2 Flow Rate FiO2 06/13/16 07:50 96 21 06/13/16 06:00 127 06/13/16 05:00 77 06/13/16 04:00 81 06/13/16 03:00 98.4 90 16 141/89 97 06/13/16 03:00 78 06/13/16 02:00 89 06/13/16 01:00 86 06/13/16 00:00 80 06/12/16 23:00 98.2 85 18 121/68 99 06/12/16 23:00 88 06/12/16 22:00 87 06/12/16 21:00 83 06/12/16 20:00 88 06/12/16 19:00 98.4 89 20 89/57 97 06/12/16 19:00 85 06/12/16 17:34 96 21 06/12/16 17:01 126 06/12/16 16:00 76 06/12/16 15:45 98.6 92 16 124/79 96 06/12/16 15:00 76 I/O 06/12/16 06/12/16 06/12/16 06/13/16 06/13/16 06/13/16 07:00 15:00 23:00 07:00 15:00 23:00 Intake Total 964 ml 1778 ml 1190 ml Output Total 1100 ml 775 ml 650 ml Balance -136 ml 1003 ml 540 ml Intake Oral 200 ml 820 ml 240 ml IV Total 764 ml 958 ml 950 ml Output Urine Total 1100 ml 775 ml 650 ml # Voids 2 # Bowel Movements 0 Physical Exam GENERAL: SKIN: Warm and dry. HEAD: Normocephalic. EYES: No scleral icterus. No injection or drainage. NECK: Supple, trachea midline. No JVD or lymphadenopathy. CARDIOVASCULAR: Regular rate and rhythm without murmurs, gallops, or rubs. RESPIRATORY: Breath sounds equal bilaterally. No accessory muscle use. GASTROINTESTINAL: Abdomen soft, non-tender, nondistended. MUSCULOSKELETAL: No cyanosis, or edema. BACK: Nontender without obvious deformity. No CVA tenderness. Assessment and Plan Problem List: (1) Sepsis secondary to UTI (2) NSTEMI (non-ST elevated myocardial infarction) (3) UTI (urinary tract infection) Assessment and Plan NSTEMI - anesthesia consulted for risks/benefits of gen an d/t patients inability to lie flat for cath/pci; if gen an can be given patient consents to lhc/pci via right brachial artery, Allens test within normal limits; i explained to patient and his mother the risk of cath/pci is 10% chance of , mi, cva, need for emergency cabg/surgery, need for dialysis, need for blood transfusion, bleeding, infection, anaphylaxis, arrythmia, loss of circulation to rue and amputation to rue; patient and his mother understand and consent to proceed with cath/pci. Problem Qualifiers (1) UTI (urinary tract infection): Qualified Code: N30.00 - Acute cystitis without hematuria Armando Jin MD Jun 13, 2016 14:45
[2016-06-13] MEDS ORDERED: HYDROmorphone HCL PF 4 MG/ML VIAL IV PUSH ONE (18:45)
--- NOTE | 2016-06-13 21:47 | RADRPT ---
EXAM DATE/TIME: 06/13/2016 20:15 [facility] COMPARISON: GASTROGRAFIN ENEMA, June 04, 2016, 17:14. INDICATIONS : Constipation FLUORO TIME: .7 minutes IMAGE COUNT: 5 CONTRAST: 1. Gastroview MEDICAL HISTORY : Scoliosis SURGICAL HISTORY : Hemorrhoidectomy ENCOUNTER: Subsequent ACUITY: 1 week PAIN SCORE: 10/10 LOCATION: Bilateral abdomen FINDINGS: Preliminary film demonstrates a catheter in the bladder. Under fluoroscopic guidance a Gastrografin was instilled in the rectum. The patient had difficulty ma intaining the Gastrografin. Contrast was seen to extend into the transverse colon. No further contras t could be retained. CONCLUSION: Gastrografin was instilled for constipation to the transverse colon. No obstruction in the visualized portion of the colon was seen. Clark Pierce MD on June 13, 2016 at 21:43 Board Certified Radiologist. This report was verified electronically.
[2016-06-13] MEDS: ZOLPIDEM TARTRATE 5 MG TAB PO PRN (21:52)
[2016-06-13] MEDS: CARVEDILOL 3.125 MG TAB PO SCH (21:52)
[2016-06-13] MEDS ORDERED: DIATRIZOATE MEGLUM/DIATRIZOATE SOD 120 ML BTL (for RAD DIAG) RECTAL ONE (21:53)
[2016-06-14] VITALS (20 sets, daily range): BP systolic 96–146; BP diastolic 54–82; PULSE 0–119; RESP 16–20; TEMP 96.5–98.9; O2SAT 95–98
[2016-06-14] MEDS: HYDROmorphone HCL PF 1 MG/ML VIAL IV PUSH PRN ×5 (04:04→22:51)
[2016-06-14] MEDS: SODIUM CHLOR 0.9% 1000 ML INJ 1,000 ML IV SCH ×2 (05:11→16:25)
[2016-06-14 05:12] LABS: HEMATOCRIT 36.4 % (39.0-51.0); MEAN CELL VOLUME 85.9 FL (80.0-100.0); MEAN CORPUSCULAR HEMOGLOBIN 28.5 PG (27.0-34.0); MEAN CORPUSCULAR HGB CONC 33.2 % (32.0-36.0); PLATELET COUNT 405 TH/MM3 (150-450); RED BLOOD COUNT 4.24 MIL/MM3 (4.50-5.90); RED CELL DISTRIBUTION WIDTH 13.2 % (11.6-17.2); REVIEW FLAG FINAL; WHITE BLOOD COUNT 6.2 TH/MM3 (4.0-11.0)
[2016-06-14 05:29] LABS: BICARBONATE 25.4 MEQ/L (21.0-32.0); POTASSIUM 4.1 MEQ/L (3.5-5.1)
[2016-06-14] MEDS: ALPRAZolam 0.25 MG TAB PO SCH ×2 (05:54→18:23)
[2016-06-14] MEDS: AZTREONAM INJ 1,000 MG in SODIUM CHLORIDE 0.9% INJ 100 ML IV SCH ×3 (05:55→22:51)
--- NOTE | 2016-06-14 08:19 | HHI.PR ---
Subjective Remarks He had the gastrograffin enema and it did not show any fecal impaction. He is to have cardiac evaluation done with consideration of assistance by anesthesia for his inability to lie flat on his back for any extended period of time. He is quite anxious regarding this. Objective Vital Signs Date Time Temp Pulse Resp B/P Pulse Ox O2 Delivery O2 Flow Rate FiO2 06/14/16 06:58 16 06/14/16 06:00 71 06/14/16 05:00 90 06/14/16 04:00 90 06/14/16 03:59 96.5 86 20 146/82 98 06/14/16 03:00 92 06/14/16 02:00 80 06/14/16 01:00 84 06/14/16 00:39 98.6 92 16 114/54 98 06/14/16 00:00 0 06/13/16 23:00 0 06/13/16 22:00 0 06/13/16 21:00 93 06/13/16 20:00 204 06/13/16 20:00 98.6 93 16 113/85 99 06/13/16 19:00 104 06/13/16 18:00 92 06/13/16 17:00 93 06/13/16 16:00 89 06/13/16 15:00 98.5 91 16 136/76 97 06/13/16 15:00 91 06/13/16 14:00 93 06/13/16 13:00 92 06/13/16 12:00 98.5 97 16 140/88 97 06/13/16 12:00 97 06/13/16 11:00 90 06/13/16 10:00 83 06/13/16 09:00 101 I/O 06/13/16 06/13/16 06/13/16 06/14/16 06/14/16 06/14/16 07:00 15:00 23:00 07:00 15:00 23:00 Intake Total 1190 ml 2395 ml 1320 ml Output Total 650 ml 900 ml Balance 540 ml 1495 ml 1320 ml Intake Oral 240 ml 420 ml 420 ml IV Total 950 ml 1975 ml 900 ml Output Urine Total 650 ml 900 ml # Voids 4 # Bowel Movements 6 Result Diagram: 06/14/16 0338 06/14/16 0338 Assessment and Plan Assessment and Plan ASSESSMENT 1. Non ST Elevation Myocardial Infarction. 2. Urinary Tract Infection, on admission. 3. Fecal Impaction of Left Colon-appears resolved. 4. Hyponatremia. 5. Recent Hemorrhoidectomy. 6. Quadriplegia. 7. Severe Scoliosis of the Spine. PLAN 1. He is scheduled for cardiac assessment today. 2. Intravenous hydration and electrolyte repletion. 3. Cardiology follows. 4. Follow up laboratory assessment. 5. DVT, PE and PUD prophylaxis. Mark Pabon MD Jun 14, 2016 08:19
[2016-06-14] MEDS: DOCUSATE SODIUM 100 MG CAP PO SCH ×4 (09:00→20:50)
[2016-06-14] MEDS: ASPIRIN EC 81 MG TABEC PO SCH (09:00)
[2016-06-14] MEDS: CHOLECALCIFEROL (VIT D3) 1000 UNIT TAB PO SCH (09:00)
[2016-06-14] MEDS: CARVEDILOL 3.125 MG TAB PO SCH ×2 (09:00→20:50)
[2016-06-14] MEDS: DOXYCYCLINE HYCLATE 100 MG TAB PO SCH ×2 (09:01→20:49)
[2016-06-14] MEDS: PRAVASTATIN SOD 40 MG TAB PO SCH (09:01)
[2016-06-14] MEDS: HEPARIN SODIUM - SQ 10,000 UNITS/ML VIAL SQ SCH (09:02)
[2016-06-14] MEDS: SODIUM CHLORIDE 0.9% FLUSH 5 ML FLUSH FLUSH SCH ×2 (09:02→20:50)
--- NOTE | 2016-06-14 14:29 | PD.CARD.PN ---
Subjective Subjective Remarks c/o being hungry Objective Vital Signs / I&O Vital Signs Date Time Temp Pulse Resp B/P Pulse Ox O2 Delivery O2 Flow Rate FiO2 06/14/16 14:06 16 06/14/16 12:00 87 06/14/16 12:00 98.9 74 16 129/79 95 06/14/16 11:00 80 06/14/16 10:00 107 06/14/16 09:00 91 06/14/16 08:00 98.9 83 16 126/75 97 06/14/16 08:00 82 06/14/16 07:00 71 06/14/16 06:00 71 06/14/16 05:00 90 06/14/16 04:00 90 06/14/16 03:59 96.5 86 20 146/82 98 06/14/16 03:00 92 06/14/16 02:00 80 06/14/16 01:00 84 06/14/16 00:39 98.6 92 16 114/54 98 06/14/16 00:00 0 06/13/16 23:00 0 06/13/16 22:00 0 06/13/16 21:00 93 06/13/16 20:00 204 06/13/16 20:00 98.6 93 16 113/85 99 06/13/16 19:00 104 06/13/16 18:00 92 06/13/16 17:00 93 06/13/16 16:00 89 06/13/16 15:00 98.5 91 16 136/76 97 06/13/16 15:00 91 I/O 06/13/16 06/13/16 06/13/16 06/14/16 06/14/16 06/14/16 07:00 15:00 23:00 07:00 15:00 23:00 Intake Total 1190 ml 2395 ml 1320 ml Output Total 650 ml 900 ml Balance 540 ml 1495 ml 1320 ml Intake Oral 240 ml 420 ml 420 ml IV Total 950 ml 1975 ml 900 ml Output Urine Total 650 ml 900 ml # Voids 4 # Bowel Movements 6 Physical Exam GENERAL: SKIN: Warm and dry. HEAD: Normocephalic. EYES: No scleral icterus. No injection or drainage. NECK: Supple, trachea midline. No JVD or lymphadenopathy. CARDIOVASCULAR: Regular rate and rhythm without murmurs, gallops, or rubs. RESPIRATORY: Breath sounds equal bilaterally. No accessory muscle use. GASTROINTESTINAL: Abdomen soft, non-tender, nondistended. MUSCULOSKELETAL: No cyanosis, or edema. BACK: Nontender without obvious deformity. No CVA tenderness. Laboratory Laboratory Tests Test 06/13/16 06/14/16 15:55 03:38 Troponin I 0.04 NG/ML White Blood Count 6.2 TH/MM3 Red Blood Count 4.24 MIL/MM3 Hemoglobin 12.1 GM/DL Hematocrit 36.4 % Mean Corpuscular Volume 85.9 FL Mean Corpuscular Hemoglobin 28.5 PG Mean Corpuscular Hemoglobin 33.2 % Concent Red Cell Distribution Width 13.2 % Platelet Count 405 TH/MM3 Mean Platelet Volume 7.1 FL Sodium Level 139 MEQ/L Potassium Level 4.1 MEQ/L Chloride Level 106 MEQ/L Carbon Dioxide Level 25.4 MEQ/L Anion Gap 8 MEQ/L Blood Urea Nitrogen 6 MG/DL Creatinine 0.46 MG/DL Estimat Glomerular Filtration 192 ML/MIN Rate Random Glucose 78 MG/DL Calcium Level 8.2 MG/DL Assessment and Plan Problem List: (1) Sepsis secondary to UTI (2) NSTEMI (non-ST elevated myocardial infarction) (3) UTI (urinary tract infection) Assessment and Plan NSTEMI - anesthesia consulted for risks/benefits of gen an d/t patients inability to lie flat for cath/pci; if gen an can be given patient consents to lhc/pci via right brachial artery, Allens test within normal limits; i explained to patient and his mother the risk of cath/pci is 10% chance of , mi, cva, need for emergency cabg/surgery, need for dialysis, need for blood transfusion, bleeding, infection, anaphylaxis, arrythmia, loss of circulation to rue and amputation to rue; patient and his mother understand and consent to proceed with cath/pci; my office scheduled cath for 1:45 today and notified anesthesia of plan; anesthesia arrived @1:30 pm and asked what the plan was, nursing notified me the patient was not on cath schedule. My radio division officer called clinical lab specialist and was told patient was not scheduled for cath and 1:45 pm spot was taken; patient states he can not wait any longer. I explained to him and his mother that i am on vacation starting tomorrow and would have to sign patient off to covering colleague. Patient's mother requested Dr Rubin, which i explained that i can submit the request, but it would Dr Rubin's descision weather or not to assume care since he is not in my group. Plan at this point is to proceed with cath if it can be done by 3pm and if not to resume diet, cancel cath today per patient request. Problem Qualifiers (1) UTI (urinary tract infection): Qualified Code: N30.00 - Acute cystitis without hematuria Armando Jin MD Jun 14, 2016 14:29
[2016-06-14] MEDS ORDERED: IOHEXOL 350 MG/ML 100 ML BTL (for Cath Lab) OTHER ONE (14:45)
[2016-06-14] MEDS ORDERED: PROPOFOL 200 MG/20 ML AMP IV ONE (14:45)
[2016-06-14] MEDS ORDERED: HEPARIN SODIUM - IV 10,000 UNITS/10 ML VIAL ONE (14:48)
[2016-06-14] MEDS ORDERED: HEPARIN-NS/PF INJ 500 ML ONE (14:49)
[2016-06-14] MEDS ORDERED: MISC INFORMATION XX ONE (16:15)
[2016-06-14] MEDS ORDERED: SODIUM CHLORIDE 0.9% FLUSH 5 ML FLUSH IVF PRN (16:15)
[2016-06-14] MEDS ORDERED: MIDAZOLAM HCL 2 MG/2 ML VIAL ONE (16:26)
--- NOTE | 2016-06-14 20:04 | EC ---
Study Study Date:06/14/2016 STUDY CONCLUSIONS SUMMARY LEFT VENTRICLE: The cavity size was normal. Wall thickness was normal. Systolic function was normal. The estimated ejection fraction was 55%. Wall motion was normal; there were no regional wall motion abnormalities. If LV function is below 40, please consider prescribing an ACEI or ARB or document rationale for non-use. PROCEDURE DATA STUDY STATUS: Elective. Procedure: Transthoracic echocardiography. Image quality was good. Scanning was performed from the parasternal, apical, and subcostal acoustic windows. Study completion: The patient tolerated the procedure well. Transthoracic echocardiography. M-mode, complete 2D, complete spectral Doppler, and color Doppler. Patient status: Inpatient. CARDIAC ANATOMY LEFT VENTRICLE: The cavity size was normal. Wall thickness was normal. Systolic function was normal. The estimated ejection fraction was 55%. Wall motion was normal; there were no regional wall motion abnormalities. AORTIC VALVE: Trileaflet; normal thickness leaflets. Doppler: Transvalvular velocity was within the normal range. There was no stenosis. No regurgitation. AORTA: Aortic root: The aortic root was normal in size. MITRAL VALVE: Structurally normal valve. Doppler: Transvalvular velocity was within the normal range. There was no evidence for stenosis. No regurgitation. Peak gradient: 2mm Hg (D). LEFT ATRIUM: The atrium was normal in size. RIGHT VENTRICLE: The cavity size was normal. Wall thickness was normal. PULMONIC VALVE: Doppler: Transvalvular velocity was within the normal range. There was no evidence for stenosis. No regurgitation. TRICUSPID VALVE: Structurally normal valve. Doppler: Transvalvular velocity was within the normal range. Trace regurgitation. PULMONARY ARTERY: The main pulmonary artery was normal-sized. Systolic pressure was within the normal range. RIGHT ATRIUM: The atrium was normal in size. PERICARDIUM: There was no pericardial effusion. SYSTEMIC VEINS: Inferior vena cava: The vessel was normal in size. BASIC MEASUREMENTS ADULT Normal Left ventricle LV internal dimension, ED, chordal level, *42.6 mm 43-52 PLAX LV posterior wall thickness, ED 7.6 mm IVS/LVPW ratio, ED *1.37 <1.3 Ventricular septum Septal thickness, ED 10.4 mm Aortic valve Leaflet separation 20 mm 15-26 Left atrium Anterior-posterior dimension 35 mm Right ventricle RV internal dimension, ED, PLAX 20.8 mm 19-38 BASIC MEASUREMENTS ADULT Normal Aortic valve Leaflet separation 20 mm 15-26 DOPPLER MEASUREMENTS ADULT Normal Main pulmonary artery Pressure, S 18 mm Hg =30 Mitral valve Peak E-wave velocity 76.5 cm/s Peak A-wave velocity 63.7 cm/s Peak gradient, D 2 mm Hg Peak E/A ratio 1.2 Tricuspid valve Regurgitant peak velocity 139 cm/s Peak RV-RA gradient, S 8 mm Hg Maximal regurgitant velocity 139 cm/s Systemic veins Estimated CVP 10 mm Hg Right ventricle RV pressure, S 18 mm Hg <30 LEGEND: Mean values are shown as u=mean value. Asterisk (*) faust values outside specified normal range. Prepared and signed by Deon Faith [id number]
[2016-06-14] MEDS ORDERED: ATORVASTATIN 10 MG TAB PO SCH (21:00)
[2016-06-14] MEDS ORDERED: SODIUM CHLORIDE 0.9% FLUSH 5 ML FLUSH IVF SCH (21:00)
--- NOTE | 2016-06-14 22:39 | EKG ---
Date Performed: 06/11/2016 Time Performed: 20:40:24 PTAGE: 51 years EKG: Sinus rhythm RIGHT VENTRICULAR HYPERTROPHY POSSIBLE ANTERIOR MYOCARDIAL INFARCTION ABNORMAL ECG PREVIOUS TRACING : 06/02/2016 19.53 Compared to prior tracing no significant change DOCTOR: Ramirez Hatfield Interpretating Date/Time 06/14/2016 22:37:56
[2016-06-14] MEDS: ZOLPIDEM TARTRATE 5 MG TAB PO PRN (23:05)
[2016-06-15] VITALS (22 sets, daily range): BP systolic 93–158; BP diastolic 52–93; PULSE 70–105; RESP 16–20; TEMP 98.3–98.9; O2SAT 96–99
[2016-06-15] MEDS: HYDROmorphone HCL PF 1 MG/ML VIAL IV PUSH PRN ×3 (03:16→11:34)
[2016-06-15] MEDS: SODIUM CHLOR 0.9% 1000 ML INJ 1,000 ML IV SCH ×2 (06:24→21:29)
[2016-06-15] MEDS: AZTREONAM INJ 1,000 MG in SODIUM CHLORIDE 0.9% INJ 100 ML IV SCH (06:24)
[2016-06-15] MEDS: DOXYCYCLINE HYCLATE 100 MG TAB PO SCH ×2 (09:00→21:28)
[2016-06-15] MEDS: CHOLECALCIFEROL (VIT D3) 1000 UNIT TAB PO SCH (09:34)
[2016-06-15] MEDS: SODIUM CHLORIDE 0.9% FLUSH 5 ML FLUSH FLUSH SCH ×2 (09:34→21:00)
[2016-06-15] MEDS: PRAVASTATIN SOD 40 MG TAB PO SCH (09:34)
[2016-06-15] MEDS: ALPRAZolam 0.25 MG TAB PO SCH (09:34)
[2016-06-15] MEDS: ASPIRIN 81 MG CHEW TAB PO SCH (09:34)
[2016-06-15] MEDS: CARVEDILOL 3.125 MG TAB PO SCH ×2 (09:34→21:28)
[2016-06-15] MEDS: DOCUSATE SODIUM 100 MG CAP PO SCH ×2 (12:59→17:12)
[2016-06-15] MEDS: DICYCLOMINE HCL 20 MG TAB PO PRN (17:12)
[2016-06-15] MEDS: ALPRAZolam 0.25 MG TAB PO PRN (18:00)
[2016-06-15] MEDS: ACETAMINOPHEN/HYDROcodone 325 MG/10 MG TAB PO PRN (22:15)
[2016-06-15] MEDS: ZOLPIDEM TARTRATE 5 MG TAB PO PRN (22:20)
[2016-06-16] VITALS (26 sets, daily range): BP systolic 131–157; BP diastolic 78–95; PULSE 69–100; RESP 17–22; TEMP 97.8–99; O2SAT 96–98
[2016-06-16] MEDS: ALPRAZolam 0.25 MG TAB PO PRN ×3 (01:30→21:57)
[2016-06-16] MEDS: ACETAMINOPHEN/HYDROcodone 325 MG/10 MG TAB PO PRN ×3 (04:41→20:50)
--- NOTE | 2016-06-16 07:36 | HHI.PR ---
Subjective Remarks He had a large bowel movement on yesterday and felt much better. There is denial of any chest pain or shortness of breath. He still gets some abdominal pain in the lower abdomen area, just not as bad as prior. He appears to be tolerating the current medication regimen well. He is currently awaiting the study of his mesenteric arterial system. Medications have been converted to the oral form to insure his tolerance and their effectiveness for outpatient control of adverse symptoms Objective Vital Signs Date Time Temp Pulse Resp B/P Pulse Ox O2 Delivery O2 Flow Rate FiO2 06/16/16 06:00 76 06/16/16 05:00 81 06/16/16 04:00 70 06/16/16 03:00 78 06/16/16 03:00 97.8 81 20 131/78 96 06/16/16 02:00 78 06/16/16 01:00 98 06/16/16 00:00 91 06/15/16 23:00 98.7 92 20 105/63 98 06/15/16 23:00 101 06/15/16 22:00 103 06/15/16 21:00 105 06/15/16 20:01 98.5 103 18 137/87 98 06/15/16 20:00 101 06/15/16 19:00 70 06/15/16 18:03 74 06/15/16 17:20 82 06/15/16 16:25 98.9 91 18 141/78 98 06/15/16 16:25 91 06/15/16 15:24 86 06/15/16 14:14 80 06/15/16 13:04 95 06/15/16 12:20 18 06/15/16 12:04 98.8 78 18 138/87 98 06/15/16 12:04 82 06/15/16 11:36 81 06/15/16 10:30 96 21 06/15/16 10:00 80 06/15/16 09:55 83 06/15/16 08:00 98 06/15/16 08:00 98.8 103 18 110/58 99 I/O 06/15/16 06/15/16 06/15/16 06/16/16 06/16/16 06/16/16 07:00 15:00 23:00 07:00 15:00 23:00 Intake Total 480 ml 1240 ml 1287 ml Output Total 1750 ml 1100 ml 550 ml Balance -1270 ml 140 ml 737 ml Intake Oral 480 ml 1240 ml 720 ml IV Total 567 ml Output Urine Total 1750 ml 1100 ml 550 ml Stool Total 0 ml # Bowel Movements 3 Result Diagram: 06/14/1633706/14/16337 Objective Remarks GENERAL: Alert and well oriented. He still complains of some abdominal pain. SKIN: Warm and dry. HEAD: Normocephalic and atraumatic. EYES: No scleral icterus. No injection or drainage. NECK: Supple, trachea midline. No JVD or lymphadenopathy. CARDIOVASCULAR: Regular rate and rhythm without murmurs, gallops, or rubs. RESPIRATORY: Breath sounds equal bilaterally. No accessory muscle use. GASTROINTESTINAL: Abdomen soft with mild tenderness in the lower region. It is nondistended. MUSCULOSKELETAL: No cyanosis, or edema. BACK: Nontender without obvious deformity. No CVA tenderness. Assessment and Plan Assessment and Plan ASSESSMENT 1. Non ST Elevation Myocardial Infarction. 2. Urinary Tract Infection, on admission. 3. Fecal Impaction of Left Colon-appears resolved. 4. Hyponatremia. 5. Recent Hemorrhoidectomy. 6. Quadriplegia. 7. Severe Scoliosis of the Spine. PLAN 1. He is scheduled for mesenteric arterial system assessment today. 2. Convert to full oral intake and observe for stability. 3. Cardiology follows. 4. Increase activity as tolerated. 5. DVT, PE and PUD prophylaxis. Mark Pabon MD Jun 16, 2016 07:36
[2016-06-16] MEDS: ONDANSETRON HCL 4 MG/2 ML VIAL IVP PRN (09:19)
[2016-06-16] MEDS: DOCUSATE SODIUM 100 MG CAP PO SCH ×3 (09:46→17:18)
[2016-06-16] MEDS: DICYCLOMINE HCL 20 MG TAB PO PRN ×2 (09:47→22:18)
[2016-06-16] MEDS: ASPIRIN 81 MG CHEW TAB PO SCH (09:47)
[2016-06-16] MEDS: FLUCONAZOLE 100 MG TAB PO SCH (09:47)
[2016-06-16] MEDS: DOXYCYCLINE HYCLATE 100 MG TAB PO SCH ×2 (09:47→20:50)
[2016-06-16] MEDS: CARVEDILOL 3.125 MG TAB PO SCH ×2 (09:47→20:50)
[2016-06-16] MEDS: PRAVASTATIN SOD 40 MG TAB PO SCH (09:47)
[2016-06-16] MEDS: SODIUM CHLORIDE 0.9% FLUSH 5 ML FLUSH FLUSH SCH ×2 (09:48→21:00)
[2016-06-16] MEDS: CHOLECALCIFEROL (VIT D3) 1000 UNIT TAB PO SCH (09:48)
[2016-06-16] MEDS: SODIUM CHLOR 0.9% 1000 ML INJ 1,000 ML IV SCH (10:31)
[2016-06-16] MEDS ORDERED: IOHEXOL 350 MG/ML 10 ML VIAL (for RAD DIAG) IV ONE (11:53)
--- NOTE | 2016-06-16 12:38 | RADRPT ---
EXAM DATE/TIME: 06/16/2016 11:37 [facility] COMPARISON: CT ABDOMEN & PELVIS W CONTRAST, June 11, 2016, 22:30. INDICATIONS : Evaluate for compromised mesenteric circulation IV CONTRAST: 100 cc Omnipaque 350 (iohexol) IV ORAL CONTRAST: No oral contrast ingested. RADIATION DOSE: 10.26 CTDIvol (mGy) MEDICAL HISTORY : None SURGICAL HISTORY : None. ENCOUNTER: Initial ACUITY: 3 days PAIN SCALE: 7/10 LOCATION: Left lower quadrant TECHNIQUE: Volumetric scanning was performed using a multi-row detector CT scanner. The data was post processed with a variety of visualization algorithms including full volume maximum intensity projection, multi -planar sliding thin slab reformation, curved planar reformation, and surface rendering techniques. Using automated exposure control and adjustment of the mA and/or kV according to patient size, radiat ion dose was kept as low as reasonably achievable to obtain optimal diagnostic quality images. FINDINGS: ABDOMINAL AORTA: The lumen is smooth without significant narrowing or aneurismal dilation. The proximal celiac and sup erior mesenteric arteries are patent and normal in diameter. There are solitary renal arteries bilat erally without gross abnormality. BIFURCATION: Normal. RIGHT PELVIS: The right common iliac, internal iliac and external iliac vessels are patent without luminal irregula rity. LEFT PELVIS: The left common iliac, internal iliac and external iliac vessels are patent and without luminal irreg ularity. CONCLUSION: Mesenteric vessels are wide open and patent inclusive of the LINSEY Ayush Hernández MD on June 16, 2016 at 12:34 Board Certified Radiologist. This report was verified electronically.
[2016-06-16] MEDS ORDERED: PILL SPLITTER OTHER PRN (15:00)
--- NOTE | 2016-06-16 16:40 | PD.CARD.PN ---
Subjective Subjective Remarks denies chest pain Objective Vital Signs / I&O Vital Signs Date Time Temp Pulse Resp B/P Pulse Ox O2 Delivery O2 Flow Rate FiO2 06/16/16 14:00 85 06/16/16 13:00 82 06/16/16 12:00 90 06/16/16 11:00 96 06/16/16 09:07 98.5 69 17 154/93 98 06/16/16 09:00 96 06/16/16 08:18 97 21 06/16/16 08:00 93 06/16/16 07:00 86 06/16/16 06:00 76 06/16/16 05:00 81 06/16/16 04:00 70 06/16/16 03:00 78 06/16/16 03:00 97.8 81 20 131/78 96 06/16/16 02:00 78 06/16/16 01:00 98 06/16/16 00:00 91 06/15/16 23:00 98.7 92 20 105/63 98 06/15/16 23:00 101 06/15/16 22:00 103 06/15/16 21:00 105 06/15/16 20:01 98.5 103 18 137/87 98 06/15/16 20:00 101 06/15/16 19:00 70 06/15/16 18:03 74 06/15/16 17:20 82 I/O 06/15/16 06/15/16 06/15/16 06/16/16 06/16/16 06/16/16 06:59 14:59 22:59 06:59 14:59 22:59 Intake Total 480 ml 1240 ml 1287 ml Output Total 1750 ml 1100 ml 550 ml Balance -1270 ml 140 ml 737 ml Intake Oral 480 ml 1240 ml 720 ml IV Total 567 ml Output Urine Total 1750 ml 1100 ml 550 ml Stool Total 0 ml # Bowel Movements 3 Physical Exam GENERAL: SKIN: Warm and dry. HEAD: Normocephalic. EYES: No scleral icterus. No injection or drainage. NECK: Supple, trachea midline. No JVD or lymphadenopathy. CARDIOVASCULAR: Regular rate and rhythm without murmurs, gallops, or rubs. RESPIRATORY: Breath sounds equal bilaterally. No accessory muscle use. GASTROINTESTINAL: Abdomen soft, non-tender, nondistended. MUSCULOSKELETAL: No cyanosis, or edema. BACK: Nontender without obvious deformity. No CVA tenderness. Assessment and Plan Problem List: (1) Sepsis secondary to UTI (2) NSTEMI (non-ST elevated myocardial infarction) (3) UTI (urinary tract infection) Assessment and Plan NSTEMI - anesthesia consulted for risks/benefits of gen an d/t patients inability to lie flat for cath/pci; if gen an can be given patient consents to lhc/pci via right brachial artery, Allens test within normal limits; i explained to patient and his mother the risk of cath/pci is 10% chance of , mi, cva, need for emergency cabg/surgery, need for dialysis, need for blood transfusion, bleeding, infection, anaphylaxis, arrythmia, loss of circulation to rue and amputation to rue; patient and his mother understand and consent to proceed with cath/pci; my office scheduled cath for 1:45 today and notified anesthesia of plan; anesthesia arrived @1:30 pm and asked what the plan was, nursing notified me the patient was not on cath schedule. My investigation officer called [facility] lab technician and was told patient was not scheduled for cath and 1:45 pm spot was taken; patient states he can not wait any longer. I explained to him and his mother that i am on vacation starting tomorrow and would have to sign patient off to covering colleague. Patient's mother requested Dr Rubin, which i explained that i can submit the request, but it would Dr Rubin's descision weather or not to assume care since he is not in my group. Plan at this point is to proceed with cath if it can be done by 3pm and if not to resume diet, cancel cath today per patient request. Problem Qualifiers (1) UTI (urinary tract infection): Qualified Code: N30.00 - Acute cystitis without hematuria Armando Jin MD Jun 16, 2016 16:40
[2016-06-16] MEDS: METOCLOPRAMIDE HCL 10 MG TAB PO SCH (17:18)
[2016-06-17] VITALS (23 sets, daily range): BP systolic 71–149; BP diastolic 54–93; PULSE 72–90; RESP 16–28; TEMP 97.8–99.2; O2SAT 96–98
[2016-06-17] MEDS: ZOLPIDEM TARTRATE 5 MG TAB PO PRN ×2 (00:33→23:08)
[2016-06-17] MEDS: ACETAMINOPHEN/HYDROcodone 325 MG/10 MG TAB PO PRN ×3 (04:47→17:44)
[2016-06-17] MEDS: DICYCLOMINE HCL 20 MG TAB PO PRN ×3 (04:47→23:08)
--- NOTE | 2016-06-17 08:01 | HHI.PR ---
Subjective Remarks He did not have a bowel movement on yesterday. There is denial of any chest pain or shortness of breath. He appears to be tolerating the current medication regimen well. He is to increase his activity out of bed with the assistance of physical therapy. Objective Vital Signs Date Time Temp Pulse Resp B/P Pulse Ox O2 Delivery O2 Flow Rate FiO2 06/17/16 06:00 75 06/17/16 05:00 72 06/17/16 04:00 78 06/17/16 03:00 99.2 86 20 115/71 96 06/17/16 03:00 86 06/17/16 02:00 85 06/17/16 01:00 80 06/17/16 00:00 81 06/16/16 23:00 98.7 73 22 154/90 98 06/16/16 23:00 85 06/16/16 22:00 100 06/16/16 21:00 93 06/16/16 20:00 75 06/16/16 19:00 98.3 90 20 131/78 97 06/16/16 19:00 100 06/16/16 18:00 86 06/16/16 17:00 76 06/16/16 16:57 99.0 78 17 157/95 98 06/16/16 16:00 79 06/16/16 15:00 80 06/16/16 14:00 85 06/16/16 13:00 82 06/16/16 12:00 90 06/16/16 11:00 96 06/16/16 09:07 98.5 69 17 154/93 98 06/16/16 09:00 96 06/16/16 08:18 97 21 06/16/16 08:00 93 I/O 06/16/16 06/16/16 06/16/16 06/17/16 06/17/16 06/17/16 07:00 15:00 23:00 07:00 15:00 23:00 Intake Total 1287 ml 720 ml Output Total 550 ml 1950 ml Balance 737 ml -1230 ml Intake Oral 720 ml 720 ml IV Total 567 ml Output Urine Total 550 ml 1950 ml # Bowel Movements 0 Result Diagram: 06/14/16 0338 06/14/16 0338 Objective Remarks GENERAL: Alert and well oriented. He still complains of some abdominal pain. SKIN: Warm and dry. HEAD: Normocephalic and atraumatic. EYES: No scleral icterus. No injection or drainage. NECK: Supple, trachea midline. No JVD or lymphadenopathy. CARDIOVASCULAR: Regular rate and rhythm without murmurs, gallops, or rubs. RESPIRATORY: Breath sounds equal bilaterally. No accessory muscle use. GASTROINTESTINAL: Abdomen soft with noted tenderness in the lower region. It is nondistended. No mass is palpated. MUSCULOSKELETAL: No cyanosis, or edema. BACK: Nontender without obvious deformity. No CVA tenderness. Assessment and Plan Assessment and Plan ASSESSMENT 1. Non ST Elevation Myocardial Infarction. 2. Urinary Tract Infection, on admission. 3. Fecal Impaction of Left Colon-resolved, though continued abdominal pain. 4. Hyponatremia. 5. Recent Hemorrhoidectomy. 6. Quadriplegia. 7. Severe Scoliosis of the Spine. PLAN 1. Increase activity out of bed today. 2. Continue oral intake and observe for stability. 3. Cardiology disposition. 4. Will get Gastroenterology opinion. 5. DVT, PE and PUD prophylaxis. Mark Pabon MD Jun 17, 2016 08:01
[2016-06-17] MEDS ORDERED: SOD PHOSPHATE/SOD BIPHOSPHATE (ADULT) ENEMA 133ML PR ONE (08:15)
--- NOTE | 2016-06-17 08:45 | PD.CARD.PN ---
Subjective Subjective Remarks asleep in nad Objective Vital Signs / I&O Vital Signs Date Time Temp Pulse Resp B/P Pulse Ox O2 Delivery O2 Flow Rate FiO2 06/17/16 06:00 75 06/17/16 05:00 72 06/17/16 04:00 78 06/17/16 03:00 99.2 86 20 115/71 96 06/17/16 03:00 86 06/17/16 02:00 85 06/17/16 01:00 80 06/17/16 00:00 81 06/16/16 23:00 98.7 73 22 154/90 98 06/16/16 23:00 85 06/16/16 22:00 100 06/16/16 21:00 93 06/16/16 20:00 75 06/16/16 19:00 98.3 90 20 131/78 97 06/16/16 19:00 100 06/16/16 18:00 86 06/16/16 17:00 76 06/16/16 16:57 99.0 78 17 157/95 98 06/16/16 16:00 79 06/16/16 15:00 80 06/16/16 14:00 85 06/16/16 13:00 82 06/16/16 12:00 90 06/16/16 11:00 96 06/16/16 09:07 98.5 69 17 154/93 98 06/16/16 09:00 96 I/O 06/16/16 06/16/16 06/16/16 06/17/16 06/17/16 06/17/16 07:00 15:00 23:00 07:00 15:00 23:00 Intake Total 1287 ml 720 ml Output Total 550 ml 1950 ml Balance 737 ml -1230 ml Intake Oral 720 ml 720 ml IV Total 567 ml Output Urine Total 550 ml 1950 ml # Bowel Movements 0 Physical Exam GENERAL: SKIN: Warm and dry. HEAD: Normocephalic. EYES: No scleral icterus. No injection or drainage. NECK: Supple, trachea midline. No JVD or lymphadenopathy. CARDIOVASCULAR: Regular rate and rhythm without murmurs, gallops, or rubs. RESPIRATORY: Breath sounds equal bilaterally. No accessory muscle use. GASTROINTESTINAL: Abdomen soft, non-tender, nondistended. MUSCULOSKELETAL: No cyanosis, or edema. BACK: Nontender without obvious deformity. No CVA tenderness. Assessment and Plan Problem List: (1) Sepsis secondary to UTI (2) NSTEMI (non-ST elevated myocardial infarction) (3) UTI (urinary tract infection) Assessment and Plan 1.) CAD - mild, but cath suboptimal, assymptomatic, rec aspirin, statin, f/u with me in my office abdoulaye after discharge, d/w patient and his mother Problem Qualifiers (1) UTI (urinary tract infection): Qualified Code: N30.00 - Acute cystitis without hematuria Armando Jin MD Jun 17, 2016 08:45
[2016-06-17] MEDS: METOCLOPRAMIDE HCL 10 MG TAB PO SCH ×3 (09:26→17:44)
[2016-06-17] MEDS: CHOLECALCIFEROL (VIT D3) 1000 UNIT TAB PO SCH (10:34)
[2016-06-17] MEDS: FLUCONAZOLE 100 MG TAB PO SCH (10:35)
[2016-06-17] MEDS: DOCUSATE SODIUM 100 MG CAP PO SCH ×3 (10:35→17:44)
[2016-06-17] MEDS: ASPIRIN 81 MG CHEW TAB PO SCH (10:35)
[2016-06-17] MEDS: SODIUM CHLORIDE 0.9% FLUSH 5 ML FLUSH FLUSH SCH ×2 (10:35→21:39)
[2016-06-17] MEDS: CARVEDILOL 3.125 MG TAB PO SCH ×2 (10:35→21:38)
[2016-06-17] MEDS: PRAVASTATIN SOD 40 MG TAB PO SCH (10:35)
[2016-06-17] MEDS: DOXYCYCLINE HYCLATE 100 MG TAB PO SCH ×2 (10:35→21:38)
[2016-06-17] MEDS ORDERED: SODIUM CHLOR 0.9% 1000 ML INJ 1,000 ML IV SCH (13:00)
[2016-06-17] MEDS: ALPRAZolam 0.25 MG TAB PO PRN ×2 (15:15→23:08)
[2016-06-18] VITALS (19 sets, daily range): BP systolic 72–158; BP diastolic 48–91; PULSE 70–100; RESP 16–20; TEMP 97.7–98.7; O2SAT 93–99
[2016-06-18] MEDS: DICYCLOMINE HCL 20 MG TAB PO PRN ×2 (03:56→18:45)
[2016-06-18] MEDS: ACETAMINOPHEN/HYDROcodone 325 MG/10 MG TAB PO PRN ×4 (03:56→23:26)
[2016-06-18] MEDS: DOCUSATE SODIUM 100 MG CAP PO SCH ×3 (08:57→16:57)
[2016-06-18] MEDS: CHOLECALCIFEROL (VIT D3) 1000 UNIT TAB PO SCH (08:58)
[2016-06-18] MEDS: ASPIRIN 81 MG CHEW TAB PO SCH (08:58)
[2016-06-18] MEDS: FLUCONAZOLE 100 MG TAB PO SCH (08:58)
[2016-06-18] MEDS: DOXYCYCLINE HYCLATE 100 MG TAB PO SCH (08:58)
[2016-06-18] MEDS: METOCLOPRAMIDE HCL 10 MG TAB PO SCH ×4 (08:58→23:26)
[2016-06-18] MEDS: PRAVASTATIN SOD 40 MG TAB PO SCH (08:58)
[2016-06-18] MEDS: CARVEDILOL 3.125 MG TAB PO SCH ×2 (08:58→21:13)
[2016-06-18] MEDS: SODIUM CHLORIDE 0.9% FLUSH 5 ML FLUSH FLUSH SCH ×2 (08:59→21:13)
[2016-06-18] MEDS ORDERED: SODIUM CHLOR 0.9% 1000 ML INJ 1,000 ML IV SCH ×2 (14:00→15:00)
[2016-06-18] MEDS: BISACODYL 10 MG SUPP RECTAL PRN (16:57)
[2016-06-18] MEDS: ALPRAZolam 0.25 MG TAB PO PRN (17:57)
--- NOTE | 2016-06-18 20:39 | HHI.PR ---
Subjective Remarks This is the third day that he still has not had a bowel movement. He is having labile lows and highs for his blood pressure secondary to the neurological lability of his system. He has been with a great deal of episodic phases of perspiration also. There is denial of any chest pain or shortness of breath. He appears to be tolerating the current medication regimen well. He cannot tolerate any further attempts at increasing his activity out of bed by physical therapy due to the pain complaints. Objective Vital Signs Date Time Temp Pulse Resp B/P Pulse Ox O2 Delivery O2 Flow Rate FiO2 06/18/16 17:36 95 21 06/18/16 16:00 98.5 90 18 114/73 95 06/18/16 16:00 88 06/18/16 16:00 88 06/18/16 14:26 98 06/18/16 14:01 81/55 06/18/16 13:00 72/58 06/18/16 13:00 95 06/18/16 13:00 95 06/18/16 12:00 97.7 95 16 82/48 93 06/18/16 08:45 75 06/18/16 08:45 75 06/18/16 08:00 98.4 89 18 130/80 96 06/18/16 06:00 79 06/18/16 05:00 92 06/18/16 04:00 98.5 78 16 142/90 99 06/18/16 02:00 87 06/18/16 01:00 70 06/18/16 00:00 79 06/18/16 00:00 98.7 79 16 145/91 97 I/O 06/17/16 06/17/16 06/17/16 06/18/16 06/18/16 06/18/16 07:00 15:00 23:00 07:00 15:00 23:00 Intake Total 720 ml 1520 ml 480 ml 0 ml Output Total 1950 ml 1000 ml 850 ml Balance -1230 ml 520 ml -370 ml 0 ml Intake Oral 720 ml 720 ml 480 ml IV Total 800 ml 0 ml Output Urine Total 1950 ml 1000 ml 850 ml # Bowel Movements 0 0 0 Result Diagram: 06/14/16 0338 06/14/16337 Objective Remarks GENERAL: Alert and well oriented. He still complains of some abdominal pain. SKIN: Warm and dry. HEAD: Normocephalic and atraumatic. EYES: No scleral icterus. No injection or drainage. NECK: Supple, trachea midline. No JVD or lymphadenopathy. CARDIOVASCULAR: Regular rate and rhythm without murmurs, gallops, or rubs. RESPIRATORY: Breath sounds equal bilaterally. No accessory muscle use. GASTROINTESTINAL: Abdomen soft with noted tenderness in the lower region. It is nondistended. No mass is palpated. MUSCULOSKELETAL: No cyanosis, or edema. BACK: Nontender without obvious deformity. No CVA tenderness. Assessment and Plan Assessment and Plan ASSESSMENT 1. Non ST Elevation Myocardial Infarction. 2. Urinary Tract Infection, on admission. 3. Fecal Impaction of Left Colon-resolved, though continued abdominal pain. 4. Hyponatremia. 5. Recent Hemorrhoidectomy. 6. Quadriplegia. 7. Severe Scoliosis of the Spine. PLAN 1. Return to the use of a motility agent intravenously. 2. Continue with intravenous fluid support. 3. Cardiology final disposition noted. 4. Gastroenterology is to see him. 5. DVT, PE and PUD prophylaxis. Mark Pabon MD Jun 18, 2016 20:39
[2016-06-18] MEDS: ZOLPIDEM TARTRATE 5 MG TAB PO PRN (23:26)
[2016-06-19] VITALS (26 sets, daily range): BP systolic 89–161; BP diastolic 52–100; PULSE 69–126; RESP 18–20; TEMP 97.4–98.7; O2SAT 96–99
[2016-06-19 00:43] LABS: BACTERIA, URINE RARE /hpf; BLOOD, URINE SMALL (NEG); GLUCOSE,URINE NEG (NEG); HYALINE CAST, URINE 1 /lpf (RARE); KETONE, URINE NEG (NEG); MUCUS URINE FEW /lpf (OCC); NITRITE,URINE NEG (NEG); SQUAMOUS EPITHELIAL CELL URINE 2 /hpf (0-5); URINE COLOR YELLOW (YELLW/STRAW)
[2016-06-19 00:45] LABS: COMMENT (UR) CATH-CULTURE IND; CULTURE IF INDICATED CATH CULTURE IND
[2016-06-19] MEDS: ACETAMINOPHEN/HYDROcodone 325 MG/10 MG TAB PO PRN ×3 (05:56→22:19)
[2016-06-19] MEDS: METOCLOPRAMIDE HCL 10 MG TAB PO SCH (05:56)
[2016-06-19 07:06] LABS: AUTOMATED NEUTROPHIL # 2.9 TH/MM3 (1.8-7.7); EOSINOPHIL # 0.2 TH/MM3 (0-0.4); EOSINOPHIL % 4.2 % (0.0-4.0); HEMATOCRIT 34.7 % (39.0-51.0); HEMO FLAGS DIFF FINAL; LYMPH % 24.2 % (9.0-44.0); LYMPHOCYTE # 1.2 TH/MM3 (1.0-4.8); MEAN CELL VOLUME 86.7 FL (80.0-100.0); MEAN CORPUSCULAR HEMOGLOBIN 29.8 PG (27.0-34.0); MEAN CORPUSCULAR HGB CONC 34.4 % (32.0-36.0); MONO % 9.7 % (0.0-8.0); NEUT % 60.9 % (16.0-70.0); PLATELET COUNT 344 TH/MM3 (150-450); RED CELL DISTRIBUTION WIDTH 13.1 % (11.6-17.2); WHITE BLOOD COUNT 4.8 TH/MM3 (4.0-11.0)
[2016-06-19 07:25] LABS: ALKALINE PHOSPHATASE 128 U/L (45-117); ALT (GPT) 16 U/L (12-78); ANION GAP 10 MEQ/L (5-15); AST (GOT) 8 U/L (15-37); BICARBONATE 23.3 MEQ/L (21.0-32.0); BLOOD UREA NITROGEN 6 MG/DL (7-18); CHLORIDE 106 MEQ/L (98-107); GLOMERULAR FILTRATION RATE 163 ML/MIN (>89); MAGNESIUM 2.2 MG/DL (1.5-2.5); POTASSIUM 3.8 MEQ/L (3.5-5.1); SODIUM (NA) 139 MEQ/L (136-145); TOTAL BILIRUBIN ADULT 0.3 MG/DL (0.2-1.0)
[2016-06-19] MEDS: FLUCONAZOLE 100 MG TAB PO SCH (08:09)
[2016-06-19] MEDS: CHOLECALCIFEROL (VIT D3) 1000 UNIT TAB PO SCH (08:09)
[2016-06-19] MEDS: PRAVASTATIN SOD 40 MG TAB PO SCH (08:10)
[2016-06-19] MEDS: SODIUM CHLORIDE 0.9% FLUSH 5 ML FLUSH FLUSH SCH ×2 (08:10→22:20)
[2016-06-19] MEDS: ASPIRIN 81 MG CHEW TAB PO SCH (08:10)
[2016-06-19] MEDS: CARVEDILOL 3.125 MG TAB PO SCH ×2 (08:10→22:19)
[2016-06-19] MEDS: DOCUSATE SODIUM 100 MG CAP PO SCH ×3 (08:10→17:11)
[2016-06-19] MEDS: DICYCLOMINE HCL 20 MG TAB PO PRN ×2 (10:37→22:19)
--- NOTE | 2016-06-19 10:51 | PD.CONS ---
HPI History of Present Illness This is a 51 year old male with hx of quadriplegia, neurogenic Bladder, recently had admission to [facility] for sepsis, urinary tract infection, severe constipation and fecal impaction, recent hemorrhoidectomy on 2016 , after discharge, patient continue to have pain in the lower left region of the abdomen. The pain continue to get worse in severity and it was persistent. It could not be controlled with outpatient means. He was therefore transported to the emergency room at [facility]. He is found with elevated Troponin, Urinary Tract Infection and Left Lower Colon Fecal Impaction. Patient had a and has been having pain and constipation since hemorrhoidectomy , initial CT showed constipation he did receive barium enema and on obstruction was noted. CTA negative. There was also a history of recent fracture of his left ribs of unknown etiology and unknown to patient. He denies nausea, vomiting, hematochezia, or melena. He did have bowel movement yesterday , the pain is better, but still have some tenderness. (Marilee Greenfield) PFSH Past Medical History 1. Cervical Syndrome. 2. Low Back Syndrome. 3. Quadriplegia. 4. Neurogenic Bladder. 5. Scoliosis of the Spine. 6. Chronic Pain Syndrome. 7. Hyperlipidemia. Past Surgical History 1. Tendon Transfer of the Right Upper Extremity-1982. 2. C-Spine Laminectomy for C5, C6 and C7-1981. 3. Spinal Cord Cyst Removal. 4. Tonsillectomy and Adenoidectomy as a child-1969. 5. Hemorrhoidectomy on 05/28/16 (Marilee Greenfield) Coded Allergies: Penicillin (Verified Allergy, Severe, RASH, 06/11/16) Medications Current Medications Medications (Trade) Dose Ordered Sig/José Antonio Route Start Time Stop Time Status Last Admin (NS Flush) 2 ml UNSCH PRN FLUSH 06/12/16 00:00 (NS Flush) 2 ml BID FLUSH 06/12/16 09:00 06/19/16 08:10 (Zofran Inj) 4 mg Q6H PRN IVP 06/12/16 00:00 06/16/16 09:19 (Ambien) 5 mg HS PRN PO 06/12/16 00:00 06/18/16 23:26 (Narcan Inj) 0.4 mg UNSCH PRN IV 1/21/17 00:00 (Vitamin D3) 1,000 units DAILY PO 06/12/16 09:00 06/19/16 08:09 (Colace) 100 mg TID PO 06/12/16 09:00 06/19/16 08:10 (Pravachol) 40 mg DAILY PO 06/12/16 09:00 06/19/16 08:10 Patient Own Medication PT OWN MED: [place]... BID PO 06/12/16 09:00 Hold (Coreg) 3.125 mg Q12HR PO 06/13/16 21:00 06/19/16 08:10 (Aspirin Chew) 81 mg DAILY PO 06/15/16 09:00 06/19/16 08:10 (Xanax) 0.25 mg Q8H PRN PO 06/15/16 12:45 06/18/16 17:57 (Bentyl) 20 mg Q6H PRN PO 06/15/16 12:45 06/18/16 18:45 ([place] 10-325 Mg) 1 tab Q6H PRN PO 06/15/16 13:00 06/19/16 05:56 (Diflucan) 100 mg DAILY PO 06/16/16 09:00 06/19/16 08:09 (Pill Splitter) 1 ea UNSCH PRN OTHER 06/16/16 15:00 (Dulcolax Supp) 10 mg DAILY PRN RECTAL 06/18/16 15:00 06/18/16 16:57 (Reglan Inj) 10 mg Q6HR IV PUSH 06/19/16 12:00 Family History Non contributory Social History No alcohol No smoking occasional marijuana (Amawi,[employer]) Review of Systems Constitutional: DENIES: Fever, Chills Endocrine: DENIES: Polyuria Eyes: DENIES: Photosensitivity Ears, nose, mouth, throat: DENIES: Hoarseness Respiratory: DENIES: Shortness of breath Gastrointestinal: COMPLAINS OF: Abdominal pain, Constipation, DENIES: Black stools, Bloody stools, Diarrhea, Nausea, Vomiting, Difficulty Swallowing, Anorexia, Odynophagia, Swelling of Abdomen, Heartburn, Hematemesis Genitourinary: DENIES: Hematuria Musculoskeletal: DENIES: Neck pain Integumentary: DENIES: Jaundice Immunologic/allergic: DENIES: Eczema Neurologic: COMPLAINS OF: Abnormal gait Psychiatric: DENIES: Anxiety (Marilee Greenfield) GI Exam Vitals I&O Vital Signs Date Time Temp Pulse Resp B/P Pulse Ox O2 Delivery O2 Flow Rate FiO2 06/19/16 06:56 20 06/19/16 06:00 113 06/19/16 05:00 71 06/19/16 04:00 78 06/19/16 04:00 97.4 81 20 128/85 96 06/19/16 04:00 Room Air 06/19/16 03:00 83 06/19/16 02:00 86 06/19/16 01:00 77 06/19/16 00:00 83 06/19/16 00:00 Room Air 06/19/16 00:00 97.7 97 18 110/66 99 06/18/16 23:00 100 06/18/16 22:00 100 06/18/16 21:00 100 06/18/16 20:00 Room Air 06/18/16 20:00 78 06/18/16 20:00 98.1 75 20 158/80 98 06/18/16 19:00 93 06/18/16 17:36 95 21 06/18/16 16:00 98.5 90 18 114/73 95 06/18/16 16:00 88 06/18/16 16:00 88 06/18/16 14:26 98 06/18/16 14:01 81/55 06/18/16 13:00 72/58 06/18/16 13:00 95 06/18/16 13:00 95 06/18/16 12:00 97.7 95 16 82/48 93 I/O 06/18/16 06/18/16 06/18/16 06/19/16 06/19/16 06/19/16 07:00 15:00 23:00 07:00 15:00 23:00 Intake Total 480 ml 0 ml 1300 ml Output Total 850 ml 1400 ml Balance -370 ml 0 ml -100 ml Intake Oral 480 ml 300 ml IV Total 0 ml 1000 ml Output Urine Total 850 ml 1400 ml # Bowel Movements 0 1 Imaging Last Impressions Abdomen/Pelvis CT 06/16/16 0000 Signed Impressions: Service Date/Time: Thursday, June 16, 2016 11:37 - CONCLUSION: Mesenteric vessels are wide open and patent inclusive of the LINSEY Ayush Hernández MD Enema w/Water Soluble 06/13/16 1807 Signed Impressions: Service Date/Time: Monday, June 13, 2016 20:15 - CONCLUSION: Gastrografin was instilled for constipation to the transverse colon. No obstruction in the visualized portion of the colon was seen. Clark Pierce MD Chest X-Ray 06/11/16 0000 Signed Impressions: Service Date/Time: Saturday, June 11, 2016 21:10 - CONCLUSION: 1. Stable exam since June 02. Healing left-sided rib fractures. Moderate scoliosis. No acute infiltrate. Venkat Hodgson MD Laboratory Test 06/19/16 06/19/16 00:00 06:31 Urine Color YELLOW Urine Turbidity HAZY Urine pH 5.0 Urine Specific [place] 1.015 Urine Protein NEG mg/dL Urine Glucose (UA) NEG mg/dL Urine Ketones NEG mg/dL Urine Occult Blood SMALL Urine Nitrite NEG Urine Bilirubin NEG Urine Urobilinogen LESS THAN 2.0 MG/DL Urine Leukocyte Esterase LARGE Urine RBC 44 /hpf Urine WBC 75 /hpf Urine Squamous Epithelial 2 /hpf Cells Urine Bacteria RARE /hpf Urine Hyaline Casts 1 /lpf Urine Mucus FEW /lpf Urine Yeast (Budding) FEW Microscopic Urinalysis Comment CATH-CULTURE IND White Blood Count 4.8 TH/MM3 Red Blood Count 4.00 MIL/MM3 Hemoglobin 11.9 GM/DL Hematocrit 34.7 % Mean Corpuscular Volume 86.7 FL Mean Corpuscular Hemoglobin 29.8 PG Mean Corpuscular Hemoglobin 34.4 % Concent Red Cell Distribution Width 13.1 % Platelet Count 344 TH/MM3 Mean Platelet Volume 7.1 FL Neutrophils (%) (Auto) 60.9 % Lymphocytes (%) (Auto) 24.2 % Monocytes (%) (Auto) 9.7 % Eosinophils (%) (Auto) 4.2 % Basophils (%) (Auto) 1.0 % Neutrophils # (Auto) 2.9 TH/MM3 Lymphocytes # (Auto) 1.2 TH/MM3 Monocytes # (Auto) 0.5 TH/MM3 Eosinophils # (Auto) 0.2 TH/MM3 Basophils # (Auto) 0.0 TH/MM3 CBC Comment DIFF FINAL Differential Comment Sodium Level 139 MEQ/L Potassium Level 3.8 MEQ/L Chloride Level 106 MEQ/L Carbon Dioxide Level 23.3 MEQ/L Anion Gap 10 MEQ/L Blood Urea Nitrogen 6 MG/DL Creatinine 0.53 MG/DL Estimat Glomerular Filtration 163 ML/MIN Rate Random Glucose 94 MG/DL Calcium Level 8.5 MG/DL Magnesium Level 2.2 MG/DL Total Bilirubin 0.3 MG/DL Aspartate Amino Transf 8 U/L (AST/SGOT) Alanine Aminotransferase 16 U/L (ALT/SGPT) Alkaline Phosphatase 128 U/L Total Protein 6.0 GM/DL Albumin 2.7 GM/DL Date/Time Procedure Status Source Growth 06/19/16 00:00 Urine Culture Received Urine Catheterized Urine Pending Physical Examination HEENT: normocephalic; atraumatic; no jaundice. Throat is clear. NECK: Neck is supple, no JVD, no lymphadenopathy. CHEST: Chest is clear to auscultation and percussion. CARDIAC: Regular rate and rhythm with no murmur gallop or rubs. ABDOMEN: Soft, nondistended,slight tenderness in LLQ; no hepatosplenomegaly; bowel sounds are present in all four quadrants. EXTREMITIES: No clubbing, cyanosis, or edema. SKIN: Normal; no rash; no jaundice. POST PARTUM NURSE: No focal deficits; alert and oriented times three. (Marilee Greenfield) Assessment and Plan Plan - Left lower quad pain- recently had admission to [facility] for sepsis, urinary tract infection, severe constipation and fecal impaction, recent hemorrhoidectomy on 2016 , after discharge, patient continue to have pain in the lower left region of the abdomen. The pain continue to get worse in severity and it was persistent. It could not be controlled with outpatient means. He was therefore transported to the emergency room at [facility]. He is found with elevated Troponin, Urinary Tract Infection and Left Lower Colon Fecal Impaction. Patient had a and has been having pain and constipation since hemorrhoidectomy , initial CT showed constipation he did receive barium enema and on obstruction was noted. CTA negative, There was also a history of recent fracture of his left ribs of unknown etiology and unknown to patient. He denies nausea, vomiting, hematochezia, or melena. He did have bowel movement yesterday, the pain is better, but still have some tenderness. - UTI- could have aggravated patient pain - Rib fracture- unknown etiology and unknown to patient - HTN per attending - Elevated troponin- Cardiology on the note - Recent hemorrhoidectomy on 05/28/16, has been having abdominal pain and constipation since. initial CT showed constipation he did receive barium enema and on obstruction was noted. There was also a history of recent fracture of his left ribs of unknown etiology and unknown to patient. He denies nausea, vomiting, hematochezia, or melena. He did have bowel movement yesterday, the pain is better, but still have some tenderness. - quadriplegia, neurogenic Bladder per attending Plan: - MARLEN - consider lactulose and other stool softener - Will consult CRS as patient is known to them, - Not much to add from GI sand point, this is most likely aggravated by constipation, and UTI, patient is doing much better - Gi will sign off - Patient seen and examined by Dr. Fuentes and myself and this note is written on her behalf. (Marilee Greenfield) Physician Comments seen, examined agree with above gi will sign off-call us as needed (Joanne Fuentes MD) Marilee Greenfield Jun 19, 2016 10:51 Joanne Fuentes MD Jun 19, 2016 12:32
[2016-06-19] MEDS: METOCLOPRAMIDE HCL 10 MG/2 ML VIAL IV PUSH SCH ×2 (12:00→17:12)
[2016-06-19] MEDS ORDERED: POLYETHYLENE GLYCOL 17 GM PKG PO PRN (15:00)
[2016-06-19] MEDS: ALPRAZolam 0.25 MG TAB PO PRN ×2 (15:00→23:26)
--- NOTE | 2016-06-19 15:25 | MA ---
cc: GUILLE ANDERSON M.D. DATE: 06/14/2016. PROCEDURES PERFORMED: 1. Left heart catheterization. 2. Left ventriculography. 3. Coronary angiography. 4. Aortic root angiography. INDICATIONS FOR THE PROCEDURE: NSTEMI. Coronary artery disease. DESCRIPTION OF THE PROCEDURE IN DETAIL: The patient has a history of C6 fracture with quadriplegia and paraplegia and is unable to lie flat; therefore, the patient was anesthetized per anesthesia without intubation. I did an Tashi's test on the patient's right upper extremity, which was normal. I decided to use a right brachial access due to the patient's inability to lie flat without anesthesia. The right brachial area was prepped and draped in the usual sterile fashion. 10 cc of 1% lidocaine was used to locally anesthetize the right common femoral artery. A 4-Faroese sheath was subsequently placed in brachial artery. 3500 units of heparin was given. ACT thirty minutes into the procedure was 243. A 4-Faroese JR4, AL1, AL2, JL4, JL5, JL6 multipurpose catheters were used in an attempt to perform left ventriculography and coronary angiography. I was not able to directly intubate the ostia of either coronary artery due to the extreme posterior location of the ostia. I was able to check the left ventricular pressure and perform a left ventriculogram pressure of 70/10/12 and ejection fraction of 75%. The right coronary artery was fibrocalcific fluoroscopically. It was a large dominant vessel. Again, I did not get direct views of it. With an aortic root angiogram there appeared to be possibly mild disease in the ostium up to 30 degrees angiographically. It was a large 4.5 to 5 mm vessel throughout most of its length again with no obvious focal obstructive disease. The left main coronary artery was very difficult to image even with non-direct imaging with aortic root angiography at 450 psi/30 cc at 12 cc/second. I could not see any definite left main stenosis or proximal left anterior descending disease but again image quality was significantly limited. There appeared to be three marginal vessels which were medium in size with no significant obstructive disease. CONCLUSIONS: 1. Angiographically very poor imaging due to inability to selectively engage the ostia of the left and right coronary artery. 2. No obvious significant left main proximal left anterior descending or proximal right coronary artery disease by nonselective imaging as detailed above. 3. Calcification in the proximal right coronary artery by fluoroscopic imaging with possibly mild disease of the ostia of the right coronary artery up to . 4. Hypodynamic left ventricular systolic function of 75% with hypotension. Note, the patient was given 220 cc of contrast during the procedure and I also gave him a liter of normal saline charline-procedurally. 5. Recommend medical management of coronary artery disease and cardiac risk factor modification. The patient tolerated the anesthesia well. PLAN: The plan is to put a splint to the right upper extremity for three hours pending sheath removal and pull the sheath when the ACT is less than 175 and check ACT every [id number]. MD JOHNNY Hamlin/MARY /4:02 PM /3:15 PM
--- NOTE | 2016-06-19 17:07 | HHI.PR ---
Subjective Remarks He did have a bowel movement on yesterday evening. He is having the feeling of "gas" pains off and on. He was seen by Gastroenterology earlier with the disposition noted. He still cannot tolerate full attempts at increasing his activity out of bed by physical therapy due to the pain complaints and lightheadedness. He has tried to sit up in his wheelchair for short periods of time. He is tolerating his diet with major problems. Objective Vital Signs Date Time Temp Pulse Resp B/P Pulse Ox O2 Delivery O2 Flow Rate FiO2 06/19/16 15:39 18 06/19/16 13:44 97 21 06/19/16 11:00 98.5 78 20 90/57 97 06/19/16 07:15 98.6 79 20 129/85 97 06/19/16 07:00 Room Air 06/19/16 06:00 113 06/19/16 05:00 71 06/19/16 04:00 78 06/19/16 04:00 97.4 81 20 128/85 96 06/19/16 04:00 Room Air 06/19/16 03:00 83 06/19/16 02:00 86 06/19/16 01:00 77 06/19/16 00:00 83 06/19/16 00:00 Room Air 06/19/16 00:00 97.7 97 18 110/66 99 06/18/16 23:00 100 06/18/16 22:00 100 06/18/16 21:00 100 06/18/16 20:00 Room Air 06/18/16 20:00 78 06/18/16 20:00 98.1 75 20 158/80 98 06/18/16 19:00 93 06/18/16 17:36 95 21 I/O 06/18/16 06/18/16 06/18/16 06/19/16 06/19/16 06/19/16 07:00 15:00 23:00 07:00 15:00 23:00 Intake Total 480 ml 0 ml 1300 ml Output Total 850 ml 1400 ml Balance -370 ml 0 ml -100 ml Intake Oral 480 ml 300 ml IV Total 0 ml 1000 ml Output Urine Total 850 ml 1400 ml # Bowel Movements 0 1 Result Diagram: 06/19/1663006/19/16630 Objective Remarks GENERAL: Alert and well oriented. He still complains of some abdominal pain, though somewhat less than prior. SKIN: Warm and dry. HEAD: Normocephalic and atraumatic. EYES: No scleral icterus. No injection or drainage. NECK: Supple, trachea midline. No JVD or lymphadenopathy. CARDIOVASCULAR: Regular rate and rhythm without murmurs, gallops, or rubs. RESPIRATORY: Breath sounds equal bilaterally. No accessory muscle use. GASTROINTESTINAL: Abdomen soft with continued tenderness in the lower region. It is nondistended. There is some increased tympany to percussion. No mass is palpated. MUSCULOSKELETAL: No cyanosis, or edema. BACK: Nontender without obvious deformity. No CVA tenderness. Assessment and Plan Assessment and Plan ASSESSMENT 1. Non ST Elevation Myocardial Infarction. 2. Urinary Tract Infection, on admission. 3. Fecal Impaction of Left Colon-resolved, though continued abdominal pain. 4. Hyponatremia-resolved. 5. Paroxysmal Hypertensive/Hypotensive Responses. 6. Hyperreflexic Sympathetic Responses with Severe Headache and Blood Pressure Lability. 7. Recent Hemorrhoidectomy. 8. Quadriplegia. 9. Severe Scoliosis of the Spine. PLAN 1. Return to the use of a motility agent intravenously. 2. Continue with intravenous fluid support. 3. Cardiology final disposition noted. 4. Gastroenterology saw him today with disposition given. 5. Colon Rectal Surgery saw him today with disposition given. 6. Will have Neurology consultation done. 7. DVT, PE and PUD prophylaxis. Mark Pabon MD Jun 19, 2016 17:07
[2016-06-19] MEDS: BACLOFEN 10 MG TAB PO SCH ×2 (17:11→22:19)
[2016-06-20] VITALS (26 sets, daily range): BP systolic 97–152; BP diastolic 67–95; PULSE 63–122; RESP 16–20; TEMP 97.5–98.5; O2SAT 95–100
[2016-06-20] MEDS: METOCLOPRAMIDE HCL 10 MG/2 ML VIAL IV PUSH SCH ×5 (00:59→23:39)
[2016-06-20] MEDS: ACETAMINOPHEN/HYDROcodone 325 MG/10 MG TAB PO PRN ×3 (04:09→20:43)
[2016-06-20] MEDS: SIMETHICONE 125 MG CHEWABLE TAB PO SCH ×4 (06:00→18:38)
[2016-06-20] MEDS: DICYCLOMINE HCL 20 MG TAB PO PRN ×2 (06:15→20:43)
[2016-06-20] MEDS: FLUCONAZOLE 100 MG TAB PO SCH (08:46)
[2016-06-20] MEDS: ASPIRIN 81 MG CHEW TAB PO SCH (08:46)
[2016-06-20] MEDS: CHOLECALCIFEROL (VIT D3) 1000 UNIT TAB PO SCH (08:46)
[2016-06-20] MEDS: DOCUSATE SODIUM 100 MG CAP PO SCH ×3 (08:47→18:38)
[2016-06-20] MEDS: CARVEDILOL 3.125 MG TAB PO SCH ×2 (08:47→20:43)
[2016-06-20] MEDS: BACLOFEN 10 MG TAB PO SCH ×3 (08:47→23:39)
[2016-06-20] MEDS: SODIUM CHLORIDE 0.9% FLUSH 5 ML FLUSH FLUSH SCH ×2 (08:47→20:43)
[2016-06-20] MEDS: PRAVASTATIN SOD 40 MG TAB PO SCH (08:47)
[2016-06-20] MEDS: ALPRAZolam 0.25 MG TAB PO PRN ×2 (15:50→23:40)
[2016-06-20] MEDS: BISACODYL 10 MG SUPP RECTAL PRN (15:50)
[2016-06-20] MEDS ORDERED: FLUCONAZOLE 200 MG PREMIX BAG 100 ML IV ONE (18:00)
--- NOTE | 2016-06-20 18:11 | HHI.PR ---
Subjective Remarks He has been trying to pass a bowel most of today. He was seen by Neurology and by Colon Rectal Surgery. He is still with major swings of blood pressure from the 170's to the 70's. He is with paroxysmal pain occurrences the serve to influence these blood pressure variances. He feels that he is becoming more and more weaker each day. He is not able to tolerate changes of position for any extended period of time. Objective Vital Signs Date Time Temp Pulse Resp B/P Pulse Ox O2 Delivery O2 Flow Rate FiO2 06/20/16 17:36 97 06/20/16 17:20 98 Nasal Cannula 21 06/20/16 16:05 95 06/20/16 15:50 95 06/20/16 15:50 97.9 95 18 115/79 97 06/20/16 14:00 88 06/20/16 13:52 18 06/20/16 13:21 101 06/20/16 12:27 79 06/20/16 11:50 97 06/20/16 11:50 97.8 97 18 103/73 100 06/20/16 11:04 98 21 06/20/16 10:52 91 06/20/16 09:07 82 06/20/16 08:30 122 06/20/16 08:30 95 Room Air 06/20/16 08:30 97.5 84 20 120/75 95 06/20/16 08:25 80 06/20/16 06:00 87 06/20/16 05:00 80 06/20/16 04:00 63 06/20/16 03:00 98.5 76 20 152/95 99 06/20/16 03:00 76 06/20/16 02:00 83 06/20/16 01:00 88 06/20/16 00:00 90 06/19/16 23:00 98.7 95 20 89/52 98 06/19/16 23:00 94 06/19/16 22:00 89 06/19/16 21:00 98 06/19/16 20:00 99 06/19/16 19:00 95 06/19/16 19:00 98.5 82 20 161/100 97 06/19/16 18:00 89 I/O 06/19/16 06/19/16 06/19/16 06/20/16 06/20/16 06/20/16 07:00 15:00 23:00 07:00 15:00 23:00 Intake Total 1300 ml 960 ml 480 ml 720 ml Output Total 1400 ml 1050 ml 2150 ml 1600 ml Balance -100 ml -90 ml -1670 ml -880 ml Intake Oral 300 ml 960 ml 480 ml 720 ml IV Total 1000 ml Output Urine Total 1400 ml 1050 ml 2150 ml 1600 ml # Bowel Movements 1 1 Result Diagram: 06/19/1663006/19/16630 Objective Remarks GENERAL: Alert and well oriented. He still complains of some abdominal pain and pressure, especially when he is trying to have a bowel movement. SKIN: Warm and dry. HEAD: Normocephalic and atraumatic. EYES: No scleral icterus. No injection or drainage. NECK: Supple, trachea midline. No JVD or lymphadenopathy. CARDIOVASCULAR: Regular rate and rhythm without murmurs, gallops, or rubs. RESPIRATORY: Breath sounds equal bilaterally. No accessory muscle use. GASTROINTESTINAL: Abdomen soft with continued tenderness in the lower region, left greater than the right. It is nondistended. There is some persistent tympany to percussion. No mass is palpated. MUSCULOSKELETAL: No cyanosis, or edema. BACK: Nontender without obvious deformity. No CVA tenderness. Assessment and Plan Assessment and Plan ASSESSMENT 1. Non ST Elevation Myocardial Infarction. 2. Urinary Tract Infection, on admission. 3. Fecal Impaction of Left Colon-resolved, though continued abdominal pain. 4. Hyponatremia-resolved. 5. Paroxysmal Hypertensive/Hypotensive Responses. 6. Hyperreflexic Sympathetic Responses with Severe Headache and Blood Pressure Lability. 7. Recent Hemorrhoidectomy. 8. Quadriplegia. 9. Severe Scoliosis of the Spine. PLAN 1. Return to the use of a motility agent intravenously. 2. Continue with intravenous fluid support. 3. Cardiology final disposition noted. 4. Gastroenterology saw him today with disposition given. 5. Colon Rectal Surgery saw him today with disposition given. 6. Will have Neurology consultation done. 7. DVT, PE and PUD prophylaxis. Mark Pabon MD Jun 20, 2016 18:11
--- NOTE | 2016-06-20 19:40 | HHI.PR ---
Subjective Remarks C/R Surg afebrile, VSS still c/o constipation, spasms UO good Objective - Vital Signs Date Time Temp Pulse Resp B/P Pulse Ox O2 Delivery O2 Flow Rate FiO2 06/20/16 18:42 95 06/20/16 17:20 98 Nasal Cannula 21 06/20/16 15:50 97.9 18 115/79 Result Diagram: 06/19/1663006/19/16630 Objective Remarks PE alert Abd - soft, non-tender, no tympany A/P Assessment and Plan Imp: try incr baclofen lax +/- supp ?transfer to Damian Amanda MD Jun 20, 2016 19:40
[2016-06-20] MEDS: ZOLPIDEM TARTRATE 5 MG TAB PO PRN (23:40)
[2016-06-21] VITALS (28 sets, daily range): BP systolic 82–124; BP diastolic 43–82; PULSE 70–110; RESP 16–18; TEMP 97.6–98.6; O2SAT 96–100
[2016-06-21] MEDS: ACETAMINOPHEN/HYDROcodone 325 MG/10 MG TAB PO PRN ×3 (03:57→22:31)
[2016-06-21] MEDS: METOCLOPRAMIDE HCL 10 MG/2 ML VIAL IV PUSH SCH ×3 (06:00→18:04)
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
[2016-06-21] MEDS: CARVEDILOL 3.125 MG TAB PO SCH ×2 (09:00→22:31)
[2016-06-21] MEDS: SIMETHICONE 125 MG CHEWABLE TAB PO SCH ×3 (09:00→18:00)
[2016-06-21] MEDS: SODIUM CHLORIDE 0.9% FLUSH 5 ML FLUSH FLUSH SCH ×2 (09:41→21:00)
[2016-06-21] MEDS: PRAVASTATIN SOD 40 MG TAB PO SCH (09:41)
[2016-06-21] MEDS: CHOLECALCIFEROL (VIT D3) 1000 UNIT TAB PO SCH (09:41)
[2016-06-21] MEDS: DOCUSATE SODIUM 100 MG CAP PO SCH ×3 (09:41→18:05)
[2016-06-21] MEDS: BACLOFEN 10 MG TAB PO SCH ×2 (09:41→16:06)
[2016-06-21] MEDS: ASPIRIN 81 MG CHEW TAB PO SCH (09:41)
--- NOTE | 2016-06-21 10:51 | HHI.PR ---
Subjective Remarks Pt and mother want transfer to [facility] for Quadriplegia. Had BM yesterday. Encouraged suppository use daily,but he is resistant. Encouraged him to be OOB for deconditioning and orthostatic hypotension. Objective Vital Signs Date Time Temp Pulse Resp B/P Pulse Ox O2 Delivery O2 Flow Rate FiO2 06/21/16 08:00 98.3 106 18 82/53 99 06/21/16 07:00 95 Room Air 06/21/16 06:00 84 06/21/16 05:00 87 06/21/16 04:00 97 06/21/16 03:00 97.6 103 16 87/54 98 06/21/16 03:00 95 06/21/16 02:00 85 06/21/16 01:00 74 06/21/16 00:00 88 06/20/16 23:00 97.7 111 16 113/85 100 06/20/16 23:00 87 06/20/16 22:00 94 06/20/16 21:00 102 06/20/16 20:00 89 06/20/16 19:00 96 Room Air 06/20/16 19:00 97.6 102 16 97/67 96 06/20/16 18:42 95 06/20/16 17:36 97 06/20/16 17:20 98 Nasal Cannula 21 06/20/16 16:05 95 06/20/16 15:50 95 06/20/16 15:50 97.9 95 18 115/79 97 06/20/16 14:00 88 06/20/16 13:52 18 06/20/16 13:21 101 06/20/16 12:27 79 06/20/16 11:50 97 06/20/16 11:50 97.8 97 18 103/73 100 06/20/16 11:04 98 21 06/20/16 10:52 91 I/O 06/20/16 06/20/16 06/20/16 06/21/16 06/21/16 06/21/16 07:00 15:00 23:00 07:00 15:00 23:00 Intake Total 480 ml 720 ml 480 ml Output Total 2150 ml 1600 ml 800 ml Balance -1670 ml -880 ml -320 ml Intake Oral 480 ml 720 ml 480 ml Output Urine Total 2150 ml 1600 ml 800 ml # Bowel Movements 1 Result Diagram: 06/19/1631 06/19/16630 ASSESSMENT Stable from CRS standpoint D/W Dr Pabon. Disposition per [place] MD Jun 21, 2016 10:51
[2016-06-21] MEDS: ALPRAZolam 0.25 MG TAB PO PRN (12:32)
[2016-06-21] MEDS: FLUCONAZOLE 100 MG PREMIX BAG 50 ML IV SCH (18:04)
--- NOTE | 2016-06-21 20:02 | HHI.PR ---
Subjective Remarks The adverse complaints continue with the continued blood pressure lability. He is in pain for the abdomen and had severe headaches that are not like routine headaches that he gets on a periodic basis. The headaches are quite debilitating with associated diaphoresis. Discussion was done with the Neurology Department at [facility] in [place], [place] today with discussion done for possible transfer due to the autonomic dysreflexia presentation as an unstable presentation. He is denied transfer at this time with recommendation for further imaging studies to be done. Objective Vital Signs Date Time Temp Pulse Resp B/P Pulse Ox O2 Delivery O2 Flow Rate FiO2 06/21/16 18:00 90 06/21/16 17:00 94 06/21/16 16:00 88 06/21/16 15:00 91 06/21/16 15:00 98.6 84 18 124/82 98 06/21/16 14:00 90 06/21/16 13:56 96 21 06/21/16 13:00 94 06/21/16 12:00 70 06/21/16 11:54 98.4 93 18 105/74 100 06/21/16 11:00 98 06/21/16 10:00 76 06/21/16 09:00 101 06/21/16 08:00 98.3 106 18 82/53 99 06/21/16 08:00 103 06/21/16 07:00 90 06/21/16 07:00 95 Room Air 06/21/16 06:00 84 06/21/16 05:00 87 06/21/16 04:00 97 06/21/16 03:00 97.6 103 16 87/54 98 06/21/16 03:00 95 06/21/16 02:00 85 06/21/16 01:00 74 06/21/16 00:00 88 06/20/16 23:00 97.7 111 16 113/85 100 06/20/16 23:00 87 06/20/16 22:00 94 06/20/16 21:00 102 06/20/16 20:00 89 I/O 06/20/16 06/20/16 06/20/16 06/21/16 06/21/16 06/21/16 07:00 15:00 23:00 07:00 15:00 23:00 Intake Total 480 ml 720 ml 480 ml 100 ml Output Total 2150 ml 1600 ml 800 ml 450 ml Balance -1670 ml -880 ml -320 ml -350 ml Intake Oral 480 ml 720 ml 480 ml IV Total 100 ml Output Urine Total 2150 ml 1600 ml 800 ml 450 ml # Bowel Movements 1 Result Diagram: 06/19/1663006/19/16630 Objective Remarks GENERAL: Alert and well oriented. He still complains of some abdominal pain and pressure, especially when he is trying to have a bowel movement. SKIN: Warm and dry. HEAD: Normocephalic and atraumatic. EYES: No scleral icterus. No injection or drainage. NECK: Supple, trachea midline. No JVD or lymphadenopathy. CARDIOVASCULAR: Regular rate and rhythm without murmurs, gallops, or rubs. RESPIRATORY: Breath sounds equal bilaterally. No accessory muscle use. GASTROINTESTINAL: Abdomen soft with continued tenderness in the lower region, left greater than the right. It is nondistended. There is some persistent tympany to percussion. No mass is palpated. MUSCULOSKELETAL: No cyanosis, or edema. BACK: Nontender without obvious deformity. No CVA tenderness. Assessment and Plan Assessment and Plan ASSESSMENT 1. Non ST Elevation Myocardial Infarction. 2. Urinary Tract Infection, on admission. 3. Fecal Impaction of Left Colon-resolved, though continued abdominal pain. 4. Hyponatremia-resolved. 5. Paroxysmal Hypertensive/Hypotensive Responses. 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 7. Recent Hemorrhoidectomy. 8. Quadriplegia. 9. Severe Scoliosis of the Spine. PLAN 1. Continue with the use of a motility agent intravenously. 2. MRI studies are to be done of the Brain, C-Spine and T-Spine. 3. Neurology and Colon-Rectal dispositions are noted. 4. DVT, PE and PUD prophylaxis. 5. Okay to transfer to a Medical-Surgical Unit. Mark Pabon MD Jun 21, 2016 20:02
[2016-06-21] MEDS: DICYCLOMINE HCL 20 MG TAB PO PRN (22:31)
[2016-06-22] VITALS (21 sets, daily range): BP systolic 69–146; BP diastolic 48–82; PULSE 79–100; RESP 17–20; TEMP 97.6–98.9; O2SAT 95–99
[2016-06-22] MEDS: ZOLPIDEM TARTRATE 5 MG TAB PO PRN ×2 (00:05→23:20)
[2016-06-22] MEDS: METOCLOPRAMIDE HCL 10 MG/2 ML VIAL IV PUSH SCH ×5 (00:15→23:49)
[2016-06-22] MEDS: ALPRAZolam 0.25 MG TAB PO PRN ×2 (03:08→20:50)
[2016-06-22] MEDS: BACLOFEN 10 MG TAB PO SCH ×3 (07:40→23:49)
[2016-06-22] MEDS: PRAVASTATIN SOD 40 MG TAB PO SCH (07:40)
[2016-06-22] MEDS: DOCUSATE SODIUM 100 MG CAP PO SCH ×3 (07:40→17:58)
[2016-06-22] MEDS: CHOLECALCIFEROL (VIT D3) 1000 UNIT TAB PO SCH (07:40)
[2016-06-22] MEDS: SIMETHICONE 125 MG CHEWABLE TAB PO SCH ×3 (07:41→17:58)
[2016-06-22] MEDS: CARVEDILOL 3.125 MG TAB PO SCH ×2 (07:41→20:50)
[2016-06-22] MEDS: ASPIRIN 81 MG CHEW TAB PO SCH (07:41)
[2016-06-22] MEDS ORDERED: LORazepam 2 MG/ML VIAL IV PUSH SCH (08:45)
[2016-06-22] MEDS ORDERED: HYDROmorphone HCL PF 1 MG/ML VIAL IV PUSH ONE (08:45)
[2016-06-22] MEDS: SODIUM CHLORIDE 0.9% FLUSH 5 ML FLUSH FLUSH SCH ×2 (11:20→20:50)
[2016-06-22] MEDS ORDERED: GADODIAMIDE PF 287 MG/ML 5 ML VIAL (for RAD MRI) IV ONE (13:05)
--- NOTE | 2016-06-22 13:16 | RADRPT ---
EXAM DATE/TIME: 06/22/2016 12:01 [facility] COMPARISON: No previous studies available for comparison. INDICATIONS : Radiculopathy. Back pain. MEDICAL HISTORY : Quadriplegic SURGICAL HISTORY : Fusion, cervical. Hemorrhoidectomy. Hernia ENCOUNTER: Sequela ACUITY: > 1 year PAIN SCORE: 0/10 LOCATION: back TECHNIQUE: Multiplanar multisequence MRI of the thoracic spine was performed. FINDINGS: VERTEBRA: Normal vertebral body height. Homogeneous marrow signal. There is moderate diffuse primary bony dege nerative changes throughout the thoracic spine. There is scoliosis with curvature of the thoracic spi ne to the right. No compression fracture injuries are demonstrated. No definite spondylolisthesis is demonstrated. There is disc dehydration at all levels. CORD: Normal position and configuration. T1-T2: Normal. T2-T3: The thecal sac has a normal diameter. No evidence of disc bulge or protrusion. T3-T4: The thecal sac has a normal diameter. No evidence of disc bulge or protrusion. T4-T5: The thecal sac has a normal diameter. No evidence of disc bulge or protrusion. T5-T6: The thecal sac has a normal diameter. No evidence of disc bulge or protrusion. T6-T7: The thecal sac has a normal diameter. No evidence of disc bulge or protrusion. T7-T8: The thecal sac has a normal diameter. No evidence of disc bulge or protrusion. T8-T9: The thecal sac has a normal diameter. No evidence of disc bulge or protrusion. T9-T10: The thecal sac has a normal diameter. No evidence of disc bulge or protrusion. T10-T11: The thecal sac has a normal diameter. No evidence of disc bulge or protrusion. T11-T12: The thecal sac has a normal diameter. No evidence of disc bulge or protrusion. T12-L1: The thecal sac has a normal diameter. No evidence of disc bulge or protrusion. CONCLUSION: 1. Moderate diffuse primary bony degenerative changes throughout the entire thoracic spine. 2. Prominent scoliosis with curvature to the right. Simon Levy MD on June 22, 2016 at 13:09 Board Certified Radiologist. This report was verified electronically.
--- NOTE | 2016-06-22 13:34 | RADRPT ---
EXAM DATE/TIME: 06/22/2016 12:01 [facility] COMPARISON: No previous studies available for comparison. INDICATIONS : Radiculopathy. Neck pain. CONTRAST: 13 cc Omniscan (gadodiamide) IV MEDICAL HISTORY : quadriplegic SURGICAL HISTORY : Fusion, cervical. Hemorrhoidectomy. Hernia ENCOUNTER: Sequela ACUITY: > 1 year PAIN SCORE: 0/10 LOCATION: neck TECHNIQUE: Multiplanar, multisequence MRI examination of the cervical spine was performed. FINDINGS: VERTEBRAE: Normal vertebral body height. Homogeneous marrow signal. There is evidence of a previous laminectomy along the lower lumbar spine from C5-C7. No abnormal bone marrow edema is demonstrated. ALIGNMENT: No evidence of subluxation. CORD: Abnormal atrophic cord secondary to previous traumatic injury with what appears to be a cord lacerati on at the level of C6. POST FOSSA: The cerebellar tonsils are normal in position. POST-CONTRAST: No abnormal areas of enhancement are seen. C2-C3: The thecal sac has a normal configuration. There is no evidence of disc herniation or spinal canal stenosis. The neural foramina are patent bilaterally. C3-C4: The thecal sac has a normal configuration. There is no evidence of disc herniation or spinal canal s tenosis. The neural foramina are patent bilaterally. C4-C5: The thecal sac has a normal configuration. There is no evidence of disc herniation or spinal canal s tenosis. The neural foramina are patent bilaterally. C5-C6: The thecal sac has a normal configuration. There is no evidence of disc herniation or spinal canal s tenosis. The neural foramina are patent bilaterally. C6-C7: The thecal sac has a normal configuration. There is no evidence of disc herniation or spinal canal s tenosis. The neural foramina are patent bilaterally. C7-T1: The thecal sac has a normal configuration. There is no evidence of disc herniation or spinal canal s tenosis. The neural foramina are patent bilaterally. CONCLUSION: 1. No evidence of disc herniation. 2. Status post previous posterior laminectomy from C5-7. 3. Chronic atrophic spinal cord. Simon Levy MD on June 22, 2016 at 13:22 Board Certified Radiologist. This report was verified electronically.
--- NOTE | 2016-06-22 13:39 | RADRPT ---
EXAM DATE/TIME: 06/22/2016 12:01 [facility] COMPARISON: No previous studies available for comparison. INDICATIONS : Cephalgia. CONTRAST: 13 cc Omniscan (gadodiamide) IV MEDICAL HISTORY : Quadriplegic SURGICAL HISTORY : Fusion, cervical. Hemorrhoidectomy. Hernia ENCOUNTER: Sequela ACUITY: > 1 year PAIN SCORE: 0/10 LOCATION: cranial TECHNIQUE: Multiplanar, multisequence MRI of the brain was performed both prior to and following the administrat ion of paramagnetic contrast. FINDINGS: CEREBRUM: The ventricles are normal for age. No evidence of midline shift, mass lesion, hemorrhage or acute in farction. No extraaxial fluid collections are seen. The pituitary gland and suprasellar cistern are normal in configuration. WHITE MATTER: There are several high signal spots in the white matter tracts bilaterally.. This can be seen with is chemic demyelinization. However, any demyelinating process could give this appearance. This would hav e to be correlated with patient's physical and clinical exam. POSTERIOR FOSSA: The cerebellum and brainstem are intact. The 4th ventricle is midline. The cerebellopontine angle is unremarkable. The cerebellar tonsils are normal in position. DIFFUSION IMAGING: No focal areas of restricted diffusion are seen. No evidence of acute infarction. EXTRACRANIAL: The visualized portions of the orbits and paranasal sinuses are unremarkable. POST-CONTRAST: No abnormal areas of parenchymal or dural enhancement. No evidence of blood-brain barrier breakdown. CONCLUSION: 1. Multiple high signal spots are noted in the white matter tracts bilaterally. This is most likely a reas of ischemic demyelinization. However, other demyelinating processes such as MS could have this a ppearance. Recommend correlation with patient's physical and clinical exam. A followup MRI in 6 month s could be performed to evaluate stability. 2. The right of the MRI is grossly unremarkable. Simon Levy MD on June 22, 2016 at 13:34 Board Certified Radiologist. This report was verified electronically.
[2016-06-22] MEDS: FLUCONAZOLE 100 MG PREMIX BAG 50 ML IV SCH (17:58)
[2016-06-22] MEDS: BISACODYL 10 MG SUPP RECTAL PRN (18:14)
[2016-06-22] MEDS: ACETAMINOPHEN/HYDROcodone 325 MG/10 MG TAB PO PRN (20:50)
[2016-06-23] VITALS (8 sets, daily range): BP systolic 79–137; BP diastolic 49–73; PULSE 76–104; RESP 18–20; TEMP 96.2–97.7; O2SAT 96–100
[2016-06-23] MEDS: ACETAMINOPHEN/HYDROcodone 325 MG/10 MG TAB PO PRN ×3 (03:13→18:31)
[2016-06-23] MEDS: ALPRAZolam 0.25 MG TAB PO PRN ×2 (04:47→16:10)
[2016-06-23] MEDS: METOCLOPRAMIDE HCL 10 MG/2 ML VIAL IV PUSH SCH ×3 (04:48→18:32)
--- NOTE | 2016-06-23 08:00 | HHI.PR ---
Subjective Remarks His blood pressure lability is still a problem for him with doing full physical therapy maneuvers. He had a bowel movement on yesterday, but still reports pain for the abdomen, though somewhat less. The severe headaches persist on a periodic basis. The headaches are still debilitating with associated diaphoresis. Discussion was done with the Neurology who will review the MRI studies and render an opinion. He is encouraged to continue with physical therapy as much as tolerated. Objective Vital Signs Date Time Temp Pulse Resp B/P Pulse Ox O2 Delivery O2 Flow Rate FiO2 06/23/16 07:55 96.2 101 20 115/62 96 06/23/16 04:12 97.1 99 20 91/62 100 06/23/16 00:03 97.3 98 20 102/73 96 06/22/16 23:40 88 06/22/16 20:20 97.9 87 20 146/80 98 06/22/16 18:33 97.6 86 20 117/78 97 06/22/16 16:00 83 06/22/16 15:38 90 18 79/48 95 06/22/16 15:00 80 06/22/16 14:00 85 06/22/16 11:00 97.7 100 17 69/50 96 06/22/16 11:00 100 06/22/16 10:53 97 21 06/22/16 10:00 79 06/22/16 09:00 85 06/22/16 08:00 83 I/O 06/22/16 06/22/16 06/22/16 06/23/16 06/23/16 06/23/16 07:00 15:00 23:00 07:00 15:00 23:00 Intake Total 480 ml 480 ml Output Total 950 ml 2300 ml 1000 ml Balance -470 ml -1820 ml -1000 ml Intake Oral 480 ml 480 ml Output Urine Total 950 ml 2300 ml 1000 ml # Bowel Movements 1 Result Diagram: 06/19/1663006/19/16630 Objective Remarks GENERAL: Alert and well oriented. He still has some adverse abdominal complaints when he is trying to have a bowel movement. SKIN: Warm and dry. HEAD: Normocephalic and atraumatic. EYES: No scleral icterus. No injection or drainage. NECK: Supple, trachea midline. No JVD or lymphadenopathy. CARDIOVASCULAR: Regular rate and rhythm without murmurs, gallops, or rubs. RESPIRATORY: Breath sounds equal bilaterally. No accessory muscle use. GASTROINTESTINAL: Abdomen soft with less tenderness to palpation. It is nondistended. There is some tympany to percussion. No mass is palpated. MUSCULOSKELETAL: No cyanosis, or edema. BACK: Nontender without obvious deformity. No CVA tenderness. Assessment and Plan Assessment and Plan ASSESSMENT 1. Non ST Elevation Myocardial Infarction. 2. Urinary Tract Infection, on admission. 3. Fecal Impaction of Left Colon-resolved, though continued abdominal pain. 4. Hyponatremia-resolved. 5. Paroxysmal Hypertensive/Hypotensive Responses. 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 7. Recent Hemorrhoidectomy. 8. Quadriplegia. 9. Severe Scoliosis of the Spine. PLAN 1. Continue with the use of a motility agent intravenously. 2. MRI studies of Brain, C-Spine and T-Spine are done. 3. Neurology to review the MRI studies. 4. Use of an elastic abdominal binder to support trunk. 5. DVT, PE and PUD prophylaxis. Mark Pabon MD Jun 23, 2016 08:00
[2016-06-23] MEDS: PRAVASTATIN SOD 40 MG TAB PO SCH (08:40)
[2016-06-23] MEDS: BACLOFEN 10 MG TAB PO SCH ×2 (08:40→16:10)
[2016-06-23] MEDS: DOCUSATE SODIUM 100 MG CAP PO SCH ×3 (08:40→18:32)
[2016-06-23] MEDS: SIMETHICONE 125 MG CHEWABLE TAB PO SCH ×3 (08:40→18:32)
[2016-06-23] MEDS: CHOLECALCIFEROL (VIT D3) 1000 UNIT TAB PO SCH (08:40)
[2016-06-23] MEDS: CARVEDILOL 3.125 MG TAB PO SCH ×2 (08:40→21:00)
[2016-06-23] MEDS: ASPIRIN 81 MG CHEW TAB PO SCH (08:40)
[2016-06-23] MEDS: SODIUM CHLORIDE 0.9% FLUSH 5 ML FLUSH FLUSH SCH ×2 (08:41→22:05)
--- NOTE | 2016-06-23 09:05 | HHI.PR ---
Review/Management Daily Summary discussed with dr Pabon pt is mildly anxious but stable neuro mri brain, c spine reviewed pictures, mri t spine results seen brain shoes 2 areas of demyelination perhaps related to previous head injury, nothing acute i discussed with pt to come for office f/u and bring previous mri brain study for comparison, otherwise could do follow up study in 6 months Subjective Subjective Comments No acute events neuro reported Active Medications Current Medications Medications (Trade) Dose Ordered Sig/José Antonio Route Start Time Stop Time Status Last Admin (NS Flush) 2 ml UNSCH PRN FLUSH 06/12/16 00:00 (NS Flush) 2 ml BID FLUSH 06/12/16 09:00 06/23/16 08:41 (Zofran Inj) 4 mg Q6H PRN IVP 06/12/16 00:00 06/16/16 09:19 (Ambien) 5 mg HS PRN PO 06/12/16 00:00 06/22/16 23:20 (Narcan Inj) 0.4 mg UNSCH PRN IV 06/12/16 00:00 (Vitamin D3) 1,000 units DAILY PO 06/12/16 09:00 06/23/16 08:40 (Colace) 100 mg TID PO 06/12/16 09:00 06/23/16 08:40 (Pravachol) 40 mg DAILY PO 06/12/16 09:00 06/23/16 08:40 Patient Own Medication PT OWN MED: [place]... BID PO 06/12/16 09:00 Hold (Coreg) 3.125 mg Q12HR PO 06/13/16 21:00 06/23/16 08:40 (Aspirin Chew) 81 mg DAILY PO 06/15/16 09:00 06/23/16 08:40 (Xanax) 0.25 mg Q8H PRN PO 06/15/16 12:45 06/23/16 04:47 (Bentyl) 20 mg Q6H PRN PO 06/15/16 12:45 06/21/16 22:31 (Mayflower 10-325 Mg) 1 tab Q6H PRN PO 06/15/16 13:00 06/23/16 03:13 (Pill Splitter) 1 ea UNSCH PRN OTHER 06/16/16 15:00 (Dulcolax Supp) 10 mg DAILY PRN RECTAL 06/18/16 15:00 06/22/16 18:14 (Reglan Inj) 10 mg Q6HR IV PUSH 06/19/16 12:00 06/23/16 04:48 (Miralax) 17 gm DAILY PRN PO 06/19/16 15:00 06/20/16 08:47 Simethicone 125 mg 125 mg TID PO 06/19/16 18:00 06/23/16 08:40 (Diflucan 100 Mg Premix Bag) 50 ml @ 50 mls/hr Q24H IV 06/21/16 18:00 06/22/16 17:58 Allergies Allergies Coded Allergies Penicillin (Verified Allergy, Severe, RASH, 06/11/16) Exam I&O / VS 06/22/16 06/22/16 06/23/16 15:00 23:00 07:00 Intake Total 480 ml Output Total 2300 ml 1000 ml Balance -1820 ml -1000 ml Intake Oral 480 ml Output Urine Total 2300 ml 1000 ml # Bowel Movements 1 Vital Signs Date Time Temp Pulse Resp B/P Pulse Ox O2 Delivery O2 Flow Rate FiO2 06/23/16 07:55 96.2 101 20 115/62 96 06/23/16 04:12 97.1 99 20 91/62 100 06/23/16 00:03 97.3 98 20 102/73 96 06/22/16 23:40 88 06/22/16 20:20 97.9 87 20 146/80 98 06/22/16 18:33 97.6 86 20 117/78 97 06/22/16 16:00 83 06/22/16 15:38 90 18 79/48 95 06/22/16 15:00 80 06/22/16 14:00 85 06/22/16 11:00 97.7 100 17 69/50 96 06/22/16 11:00 100 06/22/16 10:53 97 21 06/22/16 10:00 79 Objective Radiology Results Last 48 hours Impressions Thoracic Spine MRI 06/22/16 0000 Signed Impressions: Service Date/Time: Wednesday, June 22, 2016 12:01 - CONCLUSION: 1. Moderate diffuse primary bony degenerative changes throughout the entire thoracic spine. 2. Prominent scoliosis with curvature to the right. Simon Levy MD Cervical Spine MRI 06/22/16 0000 Signed Impressions: Service Date/Time: Wednesday, June 22, 2016 12:01 - CONCLUSION: 1. No evidence of disc herniation. 2. Status post previous posterior laminectomy from C5-7. 3. Chronic atrophic spinal cord. Simon Levy MD Brain MRI 06/22/16 0000 Signed Impressions: Service Date/Time: Wednesday, June 22, 2016 12:01 - CONCLUSION: 1. Multiple high signal spots are noted in the white matter tracts bilaterally. This is most likely areas of ischemic demyelinization. However, other demyelinating processes such as MS could have this appearance. Recommend correlation with patient's physical and clinical exam. A followup MRI in 6 months could be performed to evaluate stability. 2. The right of the MRI is grossly unremarkable. Simon Levy MD Micro and Labs Date/Time Procedure Status Source Growth 06/19/16 00:00 Urine Culture - Final Complete Urine Catheterized Urine Koki Albicans Cj Ray MD Jun 23, 2016 09:05
[2016-06-23 14:11] LABS: BACTERIA, URINE RARE /hpf; BLOOD, URINE NEG (NEG); CALCIUM OXALATE CRYSTALS,URINE RARE /hpf; GLUCOSE,URINE NEG (NEG); HYALINE CAST, URINE 1 /lpf (RARE); KETONE, URINE NEG (NEG); MUCUS URINE FEW /lpf (OCC); NITRITE,URINE NEG (NEG); SQUAMOUS EPITHELIAL CELL URINE <1 /hpf (0-5); URINE COLOR YELLOW (YELLW/STRAW)
[2016-06-23 14:13] LABS: COMMENT (UR) CATH-CULTURE IND; CULTURE IF INDICATED CATH CULTURE IND
[2016-06-23] MEDS: FLUCONAZOLE 100 MG PREMIX BAG 50 ML IV SCH (18:32)
[2016-06-24] VITALS (11 sets, daily range): BP systolic 80–129; BP diastolic 51–80; PULSE 72–100; RESP 18–20; TEMP 96.3–98.2; O2SAT 94–97
[2016-06-24] MEDS: ACETAMINOPHEN/HYDROcodone 325 MG/10 MG TAB PO PRN ×3 (00:17→20:31)
[2016-06-24] MEDS: BACLOFEN 10 MG TAB PO SCH ×4 (00:17→23:26)
[2016-06-24] MEDS: ZOLPIDEM TARTRATE 5 MG TAB PO PRN ×2 (00:17→23:26)
[2016-06-24] MEDS: METOCLOPRAMIDE HCL 10 MG/2 ML VIAL IV PUSH SCH ×5 (00:18→23:40)
[2016-06-24] MEDS: ALPRAZolam 0.25 MG TAB PO PRN ×3 (02:09→20:31)
[2016-06-24] MEDS: DOCUSATE SODIUM 100 MG CAP PO SCH ×3 (08:57→17:28)
[2016-06-24] MEDS: PRAVASTATIN SOD 40 MG TAB PO SCH (08:57)
[2016-06-24] MEDS: ASPIRIN 81 MG CHEW TAB PO SCH (08:57)
[2016-06-24] MEDS: SIMETHICONE 125 MG CHEWABLE TAB PO SCH ×3 (08:58→17:29)
[2016-06-24] MEDS: CARVEDILOL 3.125 MG TAB PO SCH ×2 (08:58→20:32)
[2016-06-24] MEDS: CHOLECALCIFEROL (VIT D3) 1000 UNIT TAB PO SCH (08:58)
[2016-06-24] MEDS: SODIUM CHLORIDE 0.9% FLUSH 5 ML FLUSH FLUSH SCH ×2 (09:00→20:33)
[2016-06-24] MEDS: FLUCONAZOLE 100 MG PREMIX BAG 50 ML IV SCH (17:27)
[2016-06-24] MEDS: BISACODYL 10 MG SUPP RECTAL PRN (20:32)
[2016-06-25] VITALS (8 sets, daily range): BP systolic 73–151; BP diastolic 41–74; PULSE 92–135; RESP 18–21; TEMP 95.9–98.3; O2SAT 96–98
[2016-06-25] MEDS: ACETAMINOPHEN/HYDROcodone 325 MG/10 MG TAB PO PRN (02:42)
[2016-06-25] MEDS: METOCLOPRAMIDE HCL 10 MG/2 ML VIAL IV PUSH SCH ×3 (06:00→18:34)
[2016-06-25] MEDS: ALPRAZolam 0.25 MG TAB PO PRN (06:20)
[2016-06-25] MEDS: BACLOFEN 10 MG TAB PO SCH ×2 (08:00→18:36)
--- NOTE | 2016-06-25 08:12 | HHI.PR ---
Subjective Remarks There is still much lability of his blood pressure. He is trying to do some of the physical therapy maneuvers. He had a bowel movement on yesterday. The mother and the patient has an interest in pursuing rehab at [facility] after discharge. He is to start use of an abdominal binder use to assist in more stable blood pressures for doing rehab. Objective Vital Signs Date Time Temp Pulse Resp B/P Pulse Ox O2 Delivery O2 Flow Rate FiO2 06/25/16 04:00 97.6 94 18 93/61 98 06/25/16 00:00 97.1 96 18 110/56 97 06/24/16 20:00 96.3 100 18 87/51 97 06/24/16 19:00 83 06/24/16 16:01 97.1 76 20 109/66 96 06/24/16 12:50 129/80 06/24/16 12:37 80/59 06/24/16 12:29 97.2 88 20 89/54 96 06/24/16 11:00 80 06/24/16 08:32 97.0 72 20 127/76 96 I/O 06/24/16 06/24/16 06/24/16 06/25/16 06/25/16 06/25/16 07:00 15:00 23:00 07:00 15:00 23:00 Intake Total 240 ml 240 ml 360 ml 360 ml Output Total 1000 ml 1100 ml 600 ml 400 ml Balance -760 ml -860 ml -240 ml -40 ml Intake Oral 240 ml 240 ml 360 ml 360 ml Output Urine Total 1000 ml 1100 ml 600 ml 400 ml # Bowel Movements 1 Objective Remarks GENERAL: Alert and well oriented. He still has some adverse abdominal complaints when he is trying to have a bowel movement. SKIN: Warm and dry. HEAD: Normocephalic and atraumatic. EYES: No scleral icterus. No injection or drainage. NECK: Supple, trachea midline. No JVD or lymphadenopathy. CARDIOVASCULAR: Regular rate and rhythm without murmurs, gallops, or rubs. RESPIRATORY: Breath sounds equal bilaterally. No accessory muscle use. GASTROINTESTINAL: Abdomen soft with less tenderness to palpation. It is nondistended. There is still some tympany to percussion. No mass is palpated. MUSCULOSKELETAL: No cyanosis, or edema. BACK: Nontender without obvious deformity. No CVA tenderness. Assessment and Plan Assessment and Plan ASSESSMENT 1. Non ST Elevation Myocardial Infarction. 2. Urinary Tract Infection, on admission. 3. Fecal Impaction of Left Colon-resolved, though continued abdominal pain. 4. Hyponatremia-resolved. 5. Paroxysmal Hypertensive/Hypotensive Responses. 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 7. Recent Hemorrhoidectomy. 8. Quadriplegia. 9. Severe Scoliosis of the Spine. PLAN 1. Continue with the use of a motility agent intravenously. 2. Use of an abdominal binder to assist for more stable blood pressure. 3. Neurology disposition has been rendered. 4. Discharge planning to go to a Rehab Center. 5. DVT, PE and PUD prophylaxis. Mark Pabon MD Jun 25, 2016 08:12
[2016-06-25] MEDS: CHOLECALCIFEROL (VIT D3) 1000 UNIT TAB PO SCH (08:25)
[2016-06-25] MEDS: PRAVASTATIN SOD 40 MG TAB PO SCH (08:26)
[2016-06-25] MEDS: ASPIRIN 81 MG CHEW TAB PO SCH (08:26)
[2016-06-25] MEDS: SIMETHICONE 125 MG CHEWABLE TAB PO SCH ×3 (09:00→18:35)
[2016-06-25] MEDS: SODIUM CHLORIDE 0.9% FLUSH 5 ML FLUSH FLUSH SCH ×2 (09:00→21:00)
[2016-06-25] MEDS: CARVEDILOL 3.125 MG TAB PO SCH ×2 (09:00→20:59)
[2016-06-25] MEDS: DOCUSATE SODIUM 100 MG CAP PO SCH ×2 (12:41→18:35)
[2016-06-25] MEDS: ACETAMINOPHEN/HYDROcodone 325 MG/10 MG TAB PO SCH ×2 (12:41→18:35)
[2016-06-25] MEDS: FLUCONAZOLE 100 MG PREMIX BAG 50 ML IV SCH (18:34)
[2016-06-25] MEDS: ZOLPIDEM TARTRATE 5 MG TAB PO PRN (22:27)
[2016-06-26] VITALS: BP 110/66; PULSE 70; RESP 20; TEMP 98.7; O2SAT 97
[2016-06-26] MEDS: BACLOFEN 10 MG TAB PO SCH ×4 (01:01→23:04)
[2016-06-26] MEDS: DOCUSATE SODIUM 100 MG CAP PO SCH ×5 (01:01→23:03)
[2016-06-26] MEDS: ACETAMINOPHEN/HYDROcodone 325 MG/10 MG TAB PO SCH ×5 (01:02→23:05)
[2016-06-26] MEDS: METOCLOPRAMIDE HCL 10 MG/2 ML VIAL IV PUSH SCH ×5 (01:02→23:03)
[2016-06-26] MEDS: ALPRAZolam 0.25 MG TAB PO PRN ×2 (04:45→17:22)
[2016-06-26 08:35] VITALS: BP 88/55; PULSE 80; RESP 16; TEMP 97; O2SAT 96
[2016-06-26] MEDS: SODIUM CHLORIDE 0.9% FLUSH 5 ML FLUSH FLUSH SCH ×2 (09:00→23:03)
[2016-06-26] MEDS: SIMETHICONE 125 MG CHEWABLE TAB PO SCH ×3 (09:40→17:31)
[2016-06-26] MEDS: CHOLECALCIFEROL (VIT D3) 1000 UNIT TAB PO SCH (09:40)
[2016-06-26] MEDS: PRAVASTATIN SOD 40 MG TAB PO SCH (09:41)
[2016-06-26] MEDS: ASPIRIN 81 MG CHEW TAB PO SCH (09:43)
[2016-06-26] MEDS: CARVEDILOL 3.125 MG TAB PO SCH ×2 (09:43→23:03)
[2016-06-26 12:14] VITALS: BP 75/52; PULSE 89; RESP 16; TEMP 97.7; O2SAT 99
--- NOTE | 2016-06-26 12:28 | HHI.PR ---
Subjective Remarks He is lying in bed at this time. He is still with lability of his blood pressure. He continues with physical therapy maneuvers. He had a bowel movement on yesterday, but the initial part of the movements are still very firm and difficult to pass. He is still for evaluation for rehab at [facility] after discharge. Objective Vital Signs Date Time Temp Pulse Resp B/P Pulse Ox O2 Delivery O2 Flow Rate FiO2 06/26/16 12:14 97.7 89 16 75/52 99 06/26/16 10:42 18 06/26/16 08:35 97.0 80 16 88/55 96 06/26/16 00:00 98.7 70 20 110/66 97 06/25/16 20:00 98.3 135 20 85/58 98 06/25/16 15:15 97.1 99 20 116/58 96 I/O 06/25/16 06/25/16 06/25/16 06/26/16 06/26/16 06/26/16 07:00 15:00 23:00 07:00 15:00 23:00 Intake Total 360 ml 0 ml Output Total 400 ml 700 ml 400 ml 650 ml Balance -40 ml -700 ml -400 ml -650 ml Intake Oral 360 ml 0 ml Output Urine Total 400 ml 700 ml 400 ml 650 ml # Bowel Movements 0 Objective Remarks GENERAL: Alert and well oriented. He continues with abdominal complaints when he is trying to have a bowel movement. SKIN: Warm and dry. HEAD: Normocephalic and atraumatic. EYES: No scleral icterus. No injection or drainage. NECK: Supple, trachea midline. No JVD or lymphadenopathy. CARDIOVASCULAR: Regular rate and rhythm without murmurs, gallops, or rubs. RESPIRATORY: Breath sounds equal bilaterally. No accessory muscle use. GASTROINTESTINAL: Abdomen soft with less tenderness to palpation. It is nondistended. There is somewhat less tympany to percussion. No mass is palpated. MUSCULOSKELETAL: No cyanosis, or edema. BACK: Nontender without obvious deformity. No CVA tenderness. Assessment and Plan Assessment and Plan ASSESSMENT 1. Non ST Elevation Myocardial Infarction. 2. Urinary Tract Infection, on admission. 3. Fecal Impaction of Left Colon-resolved, though continued abdominal pain. 4. Hyponatremia-resolved. 5. Paroxysmal Hypertensive/Hypotensive Responses. 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 7. Recent Hemorrhoidectomy. 8. Quadriplegia. 9. Severe Scoliosis of the Spine. PLAN 1. Convert the motility agent to oral form. 2. Use of an abdominal binder when up to assist for more stable blood pressure. 3. Add daily Miralax to his bowel regimen. 4. Discharge planning to go to a Rehab Center. 5. DVT, PE and PUD prophylaxis. Mark Pabon MD Jun 26, 2016 12:28
[2016-06-26] MEDS ORDERED: POLYETHYLENE GLYCOL 17 GM PKG PO ONE (12:30)
[2016-06-26 16:48] VITALS: BP 112/68; PULSE 101; RESP 16; TEMP 96.6; O2SAT 96
[2016-06-26] MEDS: BISACODYL 10 MG SUPP RECTAL PRN (17:22)
[2016-06-26] MEDS: FLUCONAZOLE 100 MG PREMIX BAG 50 ML IV SCH (17:30)
[2016-06-26 20:00] VITALS: BP 175/97; PULSE 83; RESP 20; TEMP 95.3; O2SAT 97
[2016-06-26] MEDS: ZOLPIDEM TARTRATE 5 MG TAB PO PRN (23:04)
[2016-06-27] VITALS: BP 128/73; PULSE 112; RESP 20; TEMP 96.9; O2SAT 98
[2016-06-27] MEDS: ALPRAZolam 0.25 MG TAB PO PRN (01:14)
[2016-06-27 04:00] VITALS: BP 85/51; PULSE 98; RESP 20; TEMP 96.6; O2SAT 99
[2016-06-27] MEDS: METOCLOPRAMIDE HCL 10 MG/2 ML VIAL IV PUSH SCH ×3 (04:34→17:11)
[2016-06-27] MEDS: ACETAMINOPHEN/HYDROcodone 325 MG/10 MG TAB PO SCH ×3 (04:34→17:10)
[2016-06-27] MEDS: DOCUSATE SODIUM 100 MG CAP PO SCH ×3 (04:35→17:10)
[2016-06-27] MEDS ORDERED: ALPRAZolam 0.25 MG TAB PO ONE (07:45)
[2016-06-27 08:29] VITALS: BP 80/52; PULSE 97; RESP 16; TEMP 97.9; O2SAT 96
[2016-06-27] MEDS: SIMETHICONE 125 MG CHEWABLE TAB PO SCH ×3 (09:00→17:12)
[2016-06-27] MEDS: POLYETHYLENE GLYCOL 17 GM PKG PO SCH (09:00)
[2016-06-27] MEDS: CARVEDILOL 3.125 MG TAB PO SCH ×2 (09:00→22:50)
[2016-06-27] MEDS: PRAVASTATIN SOD 40 MG TAB PO SCH (10:15)
[2016-06-27] MEDS: ASPIRIN 81 MG CHEW TAB PO SCH (10:15)
[2016-06-27] MEDS: CHOLECALCIFEROL (VIT D3) 1000 UNIT TAB PO SCH (10:16)
[2016-06-27] MEDS: SODIUM CHLORIDE 0.9% FLUSH 5 ML FLUSH FLUSH SCH ×2 (10:16→22:51)
[2016-06-27] MEDS: BACLOFEN 10 MG TAB PO SCH ×2 (11:11→17:10)
[2016-06-27 12:45] VITALS: BP 95/90; PULSE 91; RESP 16; TEMP 97.4; O2SAT 96
[2016-06-27 13:01] LABS: AUTOMATED NEUTROPHIL # 8.4 TH/MM3 (1.8-7.7); BASOPHIL # 0.1 TH/MM3 (0-0.2); BASOPHIL % 0.5 % (0.0-2.0); EOSINOPHIL # 0.1 TH/MM3 (0-0.4); EOSINOPHIL % 1.1 % (0.0-4.0); HEMATOCRIT 37.5 % (39.0-51.0); HEMO FLAGS DIFF FINAL; LYMPH % 11.1 % (9.0-44.0); LYMPHOCYTE # 1.2 TH/MM3 (1.0-4.8); MEAN CORPUSCULAR HEMOGLOBIN 28.6 PG (27.0-34.0); MEAN CORPUSCULAR HGB CONC 33.6 % (32.0-36.0); MONO % 7.2 % (0.0-8.0); NEUT % 80.1 % (16.0-70.0); PLATELET COUNT 291 TH/MM3 (150-450); RED BLOOD COUNT 4.41 MIL/MM3 (4.50-5.90); RED CELL DISTRIBUTION WIDTH 13.2 % (11.6-17.2); WHITE BLOOD COUNT 10.5 TH/MM3 (4.0-11.0)
[2016-06-27 13:23] LABS: ALKALINE PHOSPHATASE 142 U/L (45-117); ALT (GPT) 18 U/L (12-78); ANION GAP 10 MEQ/L (5-15); AST (GOT) 11 U/L (15-37); BICARBONATE 27.2 MEQ/L (21.0-32.0); BLOOD UREA NITROGEN 12 MG/DL (7-18); CHLORIDE 95 MEQ/L (98-107); GLOMERULAR FILTRATION RATE 170 ML/MIN (>89); MAGNESIUM 2.2 MG/DL (1.5-2.5); POTASSIUM 3.8 MEQ/L (3.5-5.1); SODIUM (NA) 132 MEQ/L (136-145); TOTAL BILIRUBIN ADULT 0.6 MG/DL (0.2-1.0)
[2016-06-27 16:00] VITALS: BP 81/48; PULSE 94; RESP 16; TEMP 96.8; O2SAT 98
[2016-06-27] MEDS: FLUCONAZOLE 100 MG PREMIX BAG 50 ML IV SCH (17:12)
--- NOTE | 2016-06-27 18:52 | HHI.PR ---
Subjective Remarks He reports much diaphoresis and pain over last evening. The day has been much better today. He did have a bowel movement last night. He is still for evaluation for rehab at [facility] after discharge. Objective Vital Signs Date Time Temp Pulse Resp B/P Pulse Ox O2 Delivery O2 Flow Rate FiO2 06/27/16 16:00 96.8 94 16 81/48 98 06/27/16 12:45 97.4 91 16 95/90 96 06/27/16 12:15 16 06/27/16 08:29 97.9 97 16 80/52 96 06/27/16 04:00 96.6 98 20 85/51 99 06/27/16 00:00 96.9 112 20 128/73 98 06/26/16 20:00 95.3 83 20 175/97 97 I/O 06/26/16 06/26/16 06/26/16 06/27/16 06/27/16 06/27/16 07:00 15:00 23:00 07:00 15:00 23:00 Intake Total 960 ml 120 ml 360 ml Output Total 650 ml 350 ml 550 ml 250 ml 250 ml Balance -650 ml -350 ml 410 ml -130 ml -250 ml 360 ml Intake Oral 960 ml 120 ml 360 ml Output Urine Total 650 ml 350 ml 550 ml 250 ml 250 ml # Bowel Movements 0 0 Result Diagram: 06/27/16 1210 06/27/16 1210 Objective Remarks GENERAL: Alert and well oriented. He continues with abdominal complaints when he is trying to have a bowel movement. SKIN: Warm and dry. HEAD: Normocephalic and atraumatic. EYES: No scleral icterus. No injection or drainage. NECK: Supple, trachea midline. No JVD or lymphadenopathy. CARDIOVASCULAR: Regular rate and rhythm without murmurs, gallops, or rubs. RESPIRATORY: Breath sounds equal bilaterally. No accessory muscle use. GASTROINTESTINAL: Abdomen soft with less tenderness to palpation. It is nondistended. There is somewhat less tympany to percussion. No mass is palpated. MUSCULOSKELETAL: No cyanosis, or edema. BACK: Nontender without obvious deformity. No CVA tenderness. Assessment and Plan Assessment and Plan ASSESSMENT 1. Non ST Elevation Myocardial Infarction. 2. Urinary Tract Infection, on admission. 3. Fecal Impaction of Left Colon-resolved, though continued abdominal pain. 4. Hyponatremia-resolved. 5. Paroxysmal Hypertensive/Hypotensive Responses. 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 7. Recent Hemorrhoidectomy. 8. Quadriplegia. 9. Severe Scoliosis of the Spine. PLAN 1. Continue with the current medication regimen, except discontinue the metoclopramide. 2. Use of an abdominal binder when up to assist for more stable blood pressure. 3. Aguirre Catheter changed and reassessment of his urine is done as it had prior Koki present. 4. Discharge planning to go to a Rehab Center. 5. DVT, PE and PUD prophylaxis. Mark Pabon MD Jun 27, 2016 18:52
[2016-06-27 19:56] VITALS: BP 91/63; PULSE 96; RESP 18; TEMP 97.8; O2SAT 96
[2016-06-27] MEDS: DOCUSATE SODIUM 100 MG CAP PO PRN (22:50)
[2016-06-27] MEDS: BACLOFEN 10 MG TAB PO PRN (22:50)
[2016-06-27] MEDS: ACETAMINOPHEN/HYDROcodone 325 MG/10 MG TAB PO PRN (22:50)
[2016-06-27] MEDS: ZOLPIDEM TARTRATE 5 MG TAB PO PRN (22:50)
[2016-06-28] VITALS (7 sets, daily range): BP systolic 74–132; BP diastolic 49–81; PULSE 76–103; RESP 16–18; TEMP 97–97.7; O2SAT 95–97
[2016-06-28 02:26] LABS: BACTERIA, URINE RARE /hpf; BLOOD, URINE NEG (NEG); COMMENT (UR) CATH-CULTURE IND; CULTURE IF INDICATED CATH CULTURE IND; GLUCOSE,URINE NEG (NEG); KETONE, URINE NEG (NEG); MUCUS URINE FEW /lpf (OCC); NITRITE,URINE NEG (NEG); URINE COLOR YELLOW (YELLW/STRAW)
[2016-06-28] MEDS: ALPRAZolam 0.25 MG TAB PO PRN ×2 (02:28→20:15)
[2016-06-28] MEDS: DOCUSATE SODIUM 100 MG CAP PO PRN ×4 (05:31→23:44)
[2016-06-28] MEDS: BACLOFEN 10 MG TAB PO PRN ×4 (05:31→23:47)
[2016-06-28] MEDS: ACETAMINOPHEN/HYDROcodone 325 MG/10 MG TAB PO PRN ×4 (05:32→23:47)
[2016-06-28] MEDS: POLYETHYLENE GLYCOL 17 GM PKG PO SCH ×2 (09:00→09:58)
[2016-06-28] MEDS: SIMETHICONE 125 MG CHEWABLE TAB PO SCH ×3 (09:00→17:36)
[2016-06-28] MEDS: PRAVASTATIN SOD 40 MG TAB PO SCH (09:48)
[2016-06-28] MEDS: ASPIRIN 81 MG CHEW TAB PO SCH (09:48)
[2016-06-28] MEDS: CHOLECALCIFEROL (VIT D3) 1000 UNIT TAB PO SCH (09:48)
[2016-06-28] MEDS: CARVEDILOL 3.125 MG TAB PO SCH ×2 (09:48→21:00)
[2016-06-28] MEDS: SODIUM CHLORIDE 0.9% FLUSH 5 ML FLUSH FLUSH SCH ×2 (09:49→21:00)
[2016-06-28] MEDS: BISACODYL 10 MG SUPP RECTAL PRN (09:51)
[2016-06-28] MEDS: FLUCONAZOLE 100 MG PREMIX BAG 50 ML IV SCH (17:36)
[2016-06-28] MEDS: ZOLPIDEM TARTRATE 5 MG TAB PO PRN (23:44)
[2016-06-29 00:17] VITALS: BP 103/61; PULSE 97; RESP 17; TEMP 97.3; O2SAT 98
[2016-06-29 04:03] VITALS: BP 96/70; PULSE 89; RESP 19; TEMP 96.1; O2SAT 97
[2016-06-29] MEDS: ALPRAZolam 0.25 MG TAB PO PRN ×2 (04:07→16:21)
[2016-06-29] MEDS: DOCUSATE SODIUM 100 MG CAP PO PRN ×2 (06:30→11:52)
[2016-06-29] MEDS: BACLOFEN 10 MG TAB PO PRN (06:30)
[2016-06-29] MEDS: ACETAMINOPHEN/HYDROcodone 325 MG/10 MG TAB PO PRN ×2 (06:31→11:52)
--- NOTE | 2016-06-29 07:41 | HHI.PR ---
Subjective Remarks He has just awakened and reports that his bowels did much better on last evening. His urine still had many WBC's which has shown to be with Koki on the last two cultures. Infectious Disease has been consulted to yield an opinion of the urine status. He is still for evaluation for rehab at [facility] after discharge. Objective Vital Signs Date Time Temp Pulse Resp B/P Pulse Ox O2 Delivery O2 Flow Rate FiO2 06/29/16 04:03 96.1 89 19 96/70 97 06/29/16 00:47 19 06/29/16 00:17 97.3 97 17 103/61 98 06/28/16 20:23 97.7 97 18 97/64 95 06/28/16 17:21 132/72 06/28/16 16:20 97.3 93 18 74/49 97 06/28/16 12:18 97.2 76 16 105/57 96 06/28/16 08:02 97.6 84 18 105/64 96 I/O 06/28/16 06/28/16 06/28/16 06/29/16 06/29/16 06/29/16 07:00 15:00 23:00 07:00 15:00 23:00 Intake Total 480 ml 60 ml Output Total 650 ml 150 ml 1400 ml Balance -650 ml 330 ml 60 ml -1400 ml Intake Oral 480 ml 60 ml Output Urine Total 650 ml 150 ml 1400 ml Result Diagram: 06/27/16 1210 06/27/16 1210 Objective Remarks GENERAL: Alert and well oriented. He continues with abdominal complaints when he is trying to have a bowel movement. SKIN: Warm and dry. HEAD: Normocephalic and atraumatic. EYES: No scleral icterus. No injection or drainage. NECK: Supple, trachea midline. No JVD or lymphadenopathy. CARDIOVASCULAR: Regular rate and rhythm without murmurs, gallops, or rubs. RESPIRATORY: Breath sounds equal bilaterally. No accessory muscle use. GASTROINTESTINAL: Abdomen soft with less tenderness to palpation. It is nondistended. There is somewhat less tympany to percussion. No mass is palpated. MUSCULOSKELETAL: No cyanosis, or edema. BACK: Nontender without obvious deformity. No CVA tenderness. Assessment and Plan Assessment and Plan ASSESSMENT 1. Non ST Elevation Myocardial Infarction. 2. Urinary Tract Infection, on admission-persisting with Koki. 3. Fecal Impaction of Left Colon-resolved, though continued abdominal pain. 4. Hyponatremia-resolved. 5. Paroxysmal Hypertensive/Hypotensive Responses. 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 7. Recent Hemorrhoidectomy. 8. Quadriplegia. 9. Severe Scoliosis of the Spine. PLAN 1. Continue the current medication regimen. 2. Continue with use of an abdominal binder when up. 3. Infectious Disease consultation regarding the persistent Koki presence in the urine. 4. Discharge planning to go to a Rehab Center. 5. DVT, PE and PUD prophylaxis. Mark Pabon MD Jun 29, 2016 07:41
[2016-06-29] MEDS ORDERED: SIMETHICONE 125 MG CHEWABLE TAB PO PRN (07:45)
[2016-06-29 08:00] VITALS: BP 78/47; PULSE 89; RESP 18; TEMP 97.6; O2SAT 98
[2016-06-29] MEDS: CARVEDILOL 3.125 MG TAB PO SCH (09:00)
[2016-06-29 10:25] VITALS: BP 84/58
[2016-06-29] MEDS: CHOLECALCIFEROL (VIT D3) 1000 UNIT TAB PO SCH (10:25)
[2016-06-29] MEDS: PRAVASTATIN SOD 40 MG TAB PO SCH (10:26)
[2016-06-29] MEDS: ASPIRIN 81 MG CHEW TAB PO SCH (10:26)
[2016-06-29] MEDS: SODIUM CHLORIDE 0.9% FLUSH 5 ML FLUSH FLUSH SCH (10:26)
[2016-06-29] MEDS: DICYCLOMINE HCL 20 MG TAB PO PRN (11:53)
[2016-06-29 12:00] VITALS: BP 68/59; PULSE 95; RESP 18; TEMP 97
--- NOTE | 2016-06-29 13:26 | PD.ID.CON ---
History of Present Illness Service ID Consult Requested By Reason for Consult Evaluation and Mment of Mason cystitis in a patient with maier catheter. Primary Care Physician Mark Pabon MD Diagnoses: History of Present Illness is a 51 y/o CM with Cervical Syndrome, Low Back Syndrome, Quadriplegia, Neurogenic Bladder, Scoliosis of the Spine, Chronic Pain Syndrome. Patient's past medical history is also significant for recurrent urinary tract infections for the last 3 months. Patient reports having neurogenic bladder for the last 35 years and he has been using a [place] catheter which he uses only one time in disposed. Patient denies using unclean or recycled catheters. Patient reports seeing a urologist as outpatient approximately 3 months back when a UA was obtained and he has been treated for UTI/cystitis multiple times. He reports having been treated with various combinations of oral as well as IM and possibly IV antibiotics managed by the urologist. He reports he has never seen an infectious disease physician despite his recurrent infections. Prior to admission patient was on Bactrim as well as doxycycline for a prolonged period. Patient reports that this is the second admission and during this hospitalization he was found to have fractures of multiple left-sided ribs. He also reports having a hemorrhoidectomy as well as being treated for constipation. [facility] tract infection, severe constipation and fecal impaction. Due to worsening abdominal pain that could not be controlled as outpatient [facility] During this ER visit he was found to have elevated troponin, possible urinary tract infection as well as left lower colon fecal impaction. She reports having been seen by gastroenterology as well as cardiology during this admission. Patient reports having undergone a cardiac catheterization during this admission. Patient's primary care Dr. Alonso has been managing the urinary tract infection the organism isolated has been mason albicans and patient has been on IV Diflucan. Patient's urine culture has been tested several times during this admission and his consistently grown Mason albicans. Patient currently has a Maier catheter which was changed on admission. Patient reports that he had a Maier catheter that was placed by his urologist approximately 3 weeks back and on admission the urine was milky and grossly infected. At the time of my evaluation patient is currently on the floor. He reports that he's going to be discharged to a rehabilitation facility pending my recommendations for Mason UTI. Review of Systems Constitutional: DENIES: Diaphoretic episodes, Fatigue, Fever, Weight gain, Weight loss, Chills, Dizziness, Change in appetite, Night Sweats Endocrine: DENIES: Heat/cold intolerance, Polydipsia, Polyuria, Polyphagia Eyes: DENIES: Blurred vision, Diplopia, Eye inflammation, Eye pain, Vision loss , Photosensitivity, Double Vision Ears, nose, mouth, throat: DENIES: Tinnitus, Hearing loss, Vertigo, Nasal discharge, Oral lesions, Throat pain, Hoarseness, Ear Pain, Running Nose, Epistaxis, Sinus Pain, Toothache, Odynophagia Respiratory: DENIES: Apneas, Cough, Snoring, Wheezing, Hemoptysis, Sputum production, Shortness of breath Cardiovascular: DENIES: Chest pain, Palpitations, Syncope, Dyspnea on Exertion , PND, Lower Extremity Edema, Orthopnea, Claudication Gastrointestinal: COMPLAINS OF: Constipation, DENIES: Abdominal pain, Black stools, Bloody stools, Diarrhea, Nausea, Vomiting, Difficulty Swallowing, Anorexia Genitourinary: COMPLAINS OF: Sexual dysfunction (Paraplegic ), DENIES: Urinary frequency, Urinary incontinence, Urgency, Hematuria, Dysuria, Nocturia, Penile Discharge, Testicular Pain, Testicular Swelling Musculoskeletal: DENIES: Joint pain, Muscle aches, Stiffness, Joint Swelling, Back pain, Neck pain Integumentary: DENIES: Abnormal pigmentation, Nail changes, Pruritus, Rash Hematologic/lymphatic: DENIES: Bruising, Lymphadenopathy Immunologic/allergic: DENIES: Eczema, Urticaria Neurologic: COMPLAINS OF: Paresthesias (wheel chair bound), DENIES: Abnormal gait, Headache, Localized weakness, Seizures, Speech Problems, Tremor, Poor Balance Psychiatric: DENIES: Anxiety, Confusion, Mood changes, Depression, Hallucinations, Agitation, Suicidal Ideation, Homicidal Ideation, Delusions Past Family Social History Allergies: Coded Allergies: Penicillin (Verified Allergy, Severe, RASH, 06/11/16) Past Medical History 1. Cervical Syndrome. 2. Low Back Syndrome. 3. Quadriplegia. 4. Neurogenic Bladder. 5. Scoliosis of the Spine. 6. Chronic Pain Syndrome. 7. Hyperlipidemia. Past Surgical History 1. Tendon Transfer of the Right Upper Extremity-1982. 2. C-Spine Laminectomy for C5, C6 and C7-1981. 3. Spinal Cord Cyst Removal. 4. Tonsillectomy and Adenoidectomy as a child-1970. Reported Medications Reported Meds & Active Scripts Active Bactrim DS (Sulfamethoxazole-Trimethoprim) 800-160 Mg Tab 1 Tab PO Q12HR Doxycycline Hyclate 100 Mg Tab 100 Mg PO Q12HR Reported Colace (Docusate Sodium) 100 Mg Cap 100 Mg PO TID Vitamin D-3 (Cholecalciferol) 1,000 Unit Tab 1,000 Units PO DAILY Hydrocodone-Acetaminophen 10-325 mg Tab 1 Tab PO Q6H PRN Methenamine Hippurate 1 Gm Tab 1 Gm PO BID Lovastatin 40 Mg Tab 40 Mg PO DAILY Active Ordered Medications Current Medications Medications (Trade) Dose Ordered Sig/José Antonio Route Start Time Stop Time Status Last Admin (NS Flush) 2 ml UNSCH PRN FLUSH 06/12/16 00:00 (NS Flush) 2 ml BID FLUSH 06/12/16 09:00 06/29/16 10:26 (Zofran Inj) 4 mg Q6H PRN IVP 06/12/16 00:00 06/16/16 09:19 (Ambien) 5 mg HS PRN PO 06/12/16 00:00 06/28/16 23:44 (Narcan Inj) 0.4 mg UNSCH PRN IV 06/12/16 00:00 (Vitamin D3) 1,000 units DAILY PO 06/12/16 09:00 06/29/16 10:25 (Pravachol) 40 mg DAILY PO 06/12/16 09:00 06/29/16 10:26 Patient Own Medication PT OWN MED: [place]... BID PO 06/12/16 09:00 Hold (Coreg) 3.125 mg Q12HR PO 06/13/16 21:00 06/28/16 09:48 (Aspirin Chew) 81 mg DAILY PO 06/15/16 09:00 06/29/16 10:26 (Xanax) 0.25 mg Q8H PRN PO 06/15/16 12:45 06/29/16 04:07 (Bentyl) 20 mg Q6H PRN PO 06/15/16 12:45 06/29/16 11:53 (Pill Splitter) 1 ea UNSCH PRN OTHER 06/16/16 15:00 (Dulcolax Supp) 10 mg DAILY PRN RECTAL 06/18/16 15:00 06/28/16 09:51 (Miralax) 17 gm DAILY PRN PO 06/19/16 15:00 06/20/16 08:47 (Miralax) 17 gm DAILY PO 06/27/16 09:00 06/28/16 09:58 ([place] 10-325 Mg) 1 tab Q6H PRN PO 06/27/16 23:00 06/29/16 11:52 (Lioresal) 10 mg Q6HR PRN PO 06/27/16 19:30 06/29/16 06:30 (Colace) 100 mg Q6HR PRN PO 06/27/16 19:30 06/29/16 11:52 (Phazyme Chew) 125 mg TID PRN PO 06/29/16 07:45 (Diflucan) 100 mg DAILY PO 06/29/16 15:00 Family History Father is at age 61. Mother is alive at age 74. She has a history of hypertension, Osteoarthritis and Glaucoma, Osteoporosis. Sister is alive at age 37 and in good health. Social History He is single. 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 He does not smoke tobacco. Alcohol intake is on at special social occasions. He does use marijuana on occasion. Patient uses a wheelchair and is able to drive a car by transferring into a car with amenities for disabled people. Physical Exam Vital Signs Vital Signs Date Time Temp Pulse Resp B/P Pulse Ox O2 Delivery O2 Flow Rate FiO2 06/29/16 12:00 97.0 95 18 68/59 06/29/16 10:25 84/58 06/29/16 08:00 97.6 89 18 78/47 98 06/29/16 04:03 96.1 89 19 96/70 97 06/29/16 00:47 19 06/29/16 00:17 97.3 97 17 103/61 98 06/28/16 20:23 97.7 97 18 97/64 95 06/28/16 17:21 132/72 06/28/16 16:20 97.3 93 18 74/49 97 Physical Exam GENERAL: Thin built, undernourished male patient, in no apparent distress. SKIN: No generalized rashes. No ecchymosis noted. HEAD: Atraumatic. Normocephalic. No temporal or scalp tenderness. EYES: Pupils equal round and reactive. Extraocular motions intact. No scleral icterus. No injection or drainage. ENT: Nose without bleeding, purulent drainage or septal hematoma. Throat without erythema, tonsillar hypertrophy or exudate. Uvula midline. Airway patent. NECK: Trachea midline. Supple, nontender, no meningeal signs. CARDIOVASCULAR: Heart sounds audible. No murmur appreciated. Regular rate and rhythm. RESPIRATORY: Clear to auscultation. Breath sounds equal bilaterally. No wheezes , rales, or rhonchi. GASTROINTESTINAL: Abdomen soft, non-tender, nondistended. MUSCULOSKELETAL: Several deformities of the upper and lower extremities noted. No joint effusions. NEUROLOGICAL: Awake and alert. Paraparesis. Loss of muscle mass in lower extremities as well as upper extremities noted. Able to move his upper extremities. Psych cooperative IV line sites with no evidence of infection. Laboratory Date/Time Procedure Status Source Growth 06/28/16 02:17 Urine Culture - Preliminary Resulted Urine Catheterized Urine IMMATURE GROWTH - REINCUBATE Result Diagram: 06/27/16 1210 06/27/16 1210 Imaging Last Impressions Thoracic Spine MRI 06/22/16 0000 Signed Impressions: Service Date/Time: Wednesday, June 22, 2016 12:01 - CONCLUSION: 1. Moderate diffuse primary bony degenerative changes throughout the entire thoracic spine. 2. Prominent scoliosis with curvature to the right. Simon Levy MD Cervical Spine MRI 06/22/16 0000 Signed Impressions: Service Date/Time: Wednesday, June 22, 2016 12:01 - CONCLUSION: 1. No evidence of disc herniation. 2. Status post previous posterior laminectomy from C5-7. 3. Chronic atrophic spinal cord. Simon Levy MD Brain MRI 06/22/16 0000 Signed Impressions: Service Date/Time: Wednesday, June 22, 2016 12:01 - CONCLUSION: 1. Multiple high signal spots are noted in the white matter tracts bilaterally. This is most likely areas of ischemic demyelinization. However, other demyelinating processes such as MS could have this appearance. Recommend correlation with patient's physical and clinical exam. A followup MRI in 6 months could be performed to evaluate stability. 2. The right of the MRI is grossly unremarkable. Simon Levy MD Abdomen/Pelvis CT 1/25/17 0000 Signed Impressions: Service Date/Time: Thursday, June 16, 2016 11:37 - CONCLUSION: Mesenteric vessels are wide open and patent inclusive of the LINSEY Ayush Hernández MD Enema w/Water Soluble 06/13/16 1807 Signed Impressions: Service Date/Time: Monday, June 13, 2016 20:15 - CONCLUSION: Gastrografin was instilled for constipation to the transverse colon. No obstruction in the visualized portion of the colon was seen. Clark Pierce MD Chest X-Ray 06/11/16 0000 Signed Impressions: Service Date/Time: Saturday, June 11, 2016 21:10 - CONCLUSION: 1. Stable exam since June 02. Healing left-sided rib fractures. Moderate scoliosis. No acute infiltrate. Venkat Hodgson MD Assessment and Plan Assessment and Plan Complicated UTI: Mason cystitis in a patient with indwelling Maier catheter for the last 3 weeks, present on admission. Neurogenic bladder Quadriplegia Scoliosis of the spine Chronic pain syndrome on considerable amount of narcotics. Recommendations: Discontinue IV Diflucan Start Diflucan 200 mg by mouth daily for total of 14 days. Patient requests a second opinion from urology to decide if it's appropriate to leave the indwelling Maier catheter in place. Once cleared by urology and no procedures planned okay to discharge from infectious disease standpoint with the above recommendations. Recommend follow-up with infectious disease Dr. Joanne Woods. Number provided to patient. Discussed with patient to have Maier catheter changed and the new UA obtained from the new Maier catheter to assess clearance of infection. Patient reports to me that he would like to go to [facility] to have a bladder stimulator placed. Georgette Mane MD Jun 29, 2016 13:26
[2016-06-29 13:50] VITALS: BP 83/61
[2016-06-29] MEDS ORDERED: FLUCONAZOLE 100 MG TAB PO SCH (15:00)
[2016-06-29] MEDS ORDERED: Aspirin Chew PO (15:35)
[2016-06-29] MEDS ORDERED: PRAV40TA PO (15:35)
[2016-06-29] MEDS ORDERED: BACL10TA PO (15:35)
[2016-06-29] MEDS ORDERED: HYDR-3583 PO (15:35)
[2016-06-29] MEDS ORDERED: DOCU1CAP39 PO (15:35)
[2016-06-29] MEDS ORDERED: ALPR.25 PO (15:35)
[2016-06-29] MEDS ORDERED: VITA100018 PO (15:35)
[2016-06-29] MEDS ORDERED: CARV3.125 PO (15:35)
[2016-06-29] MEDS ORDERED: AMBI5TAB PO (15:35)
[2016-06-29] MEDS ORDERED: POLY17S PO (15:35)
[2016-06-29] MEDS ORDERED: FLUCONAZOLE 200 MG TAB PO SCH (18:00)
== END 2016-06-29 16:49 | DRG 280 ==
LOC: NEPC 20:30 → NEDA 23:39 → HCIN 06-12 00:35 → N05B 06-22 16:52
PROVIDERS: ADMIT Internal Medicine; ATTEND Internal Medicine
PROC: 4A023N7 Measurement of Cardiac Sampling and Pressure, Left Heart, Percutaneous Approach (ICD-10-PCS; principal; 2016-06-14)
PROC: B2111ZZ Fluoroscopy of Multiple Coronary Arteries using Low Osmolar Contrast (ICD-10-PCS; 2016-06-14)
PROC: B2151ZZ Fluoroscopy of Left Heart using Low Osmolar Contrast (ICD-10-PCS; 2016-06-14)
DX: I21.4 Non-ST elevation (NSTEMI) myocardial infarction (principal); G82.50 Quadriplegia, unspecified; E87.1 Hypo-osmolality and hyponatremia; S14.106S Unspecified injury at C6 level of cervical spinal cord, sequela; T83.518A Infection and inflammatory reaction due to other urinary catheter, initial encounter; G37.9 Demyelinating disease of central nervous system, unspecified; B37.41 Candidal cystitis and urethritis; N31.9 Neuromuscular dysfunction of bladder, unspecified; M41.9 Scoliosis, unspecified; K56.41 Fecal impaction; G89.4 Chronic pain syndrome; E78.5 Hyperlipidemia, unspecified; S12.500S Unspecified displaced fracture of sixth cervical vertebra, sequela; S22.42XD Multiple fractures of ribs, left side, subsequent encounter for fracture with routine healing; I10 Essential (primary) hypertension; I25.10 Atherosclerotic heart disease of native coronary artery without angina pectoris; I25.84 Coronary atherosclerosis due to calcified coronary lesion; I95.1 Orthostatic hypotension; G90.4 Autonomic dysreflexia; F12.90 Cannabis use, unspecified, uncomplicated; F32.9 Major depressive disorder, single episode, unspecified; F41.9 Anxiety disorder, unspecified; V49.9XXS Car occupant (driver) (passenger) injured in unspecified traffic accident, sequela; Y84.6 Urinary catheterization as the cause of abnormal reaction of the patient, or of later complication, without mention of misadventure at the time of the procedure; Z88.0 Allergy status to penicillin; Z98.1 Arthrodesis status; Z99.3 Dependence on wheelchair
CPT/HCPCS: 70553; 71010; 72146; 72156; 74174; 74177; 74270; 76937; 80048; 80053; 80061; 80076; 81001; 82550; 82552; 83690; 83735; 84484; 85002; 85025; 85027; 85610; 85730; 87086; 93005; 93306; 93458; 93567; 96372; 96374; 96375; A9579; C1769; C1893; J0500; J1170; J1450; J1644; J2060; J2250; J2360; J2405; J2765; J7030; J7060; Q9963; Q9967